=== PATIENT | female | born 1925 | race Caucasian/White ===

== ENCOUNTER → 2016-11-18 | Outpatient (CLI) | payer MEDICARE, OTHER ==
[~2016-11-18] MED LIST: ACET-819 PO; AMLO10TA PO; ASP325T PO; BENA1TAB12 PO; EZET1TAB44 PO; GLYB5TAB6 PO; HYDR-3812 PO; LOSA100T7 PO; LVT.1T PO; METO-272 PO; NITR-65 PO; OMEG1CAP51 PO; VITA1TAB22 PO; VITORIN
--- OUTSIDE RECORDS SUMMARY | 2016-11-18 10:03 | XMS REPORT | Continuity of Care Document ---
Author Author [facility] Organization [facility] Address Unknown Phone Unavailable Allergies Active Description Code Type Severity Reaction Onset Reported/Identified Relationship to Patient Clinical Status Yes azithromycin [id number] Drug Allergy Unknown RASH 12/25/2013 Medications Problems Date Dx Coded Attending Type Code Diagnosis Diagnosed By 05/04/2012 Ot 562.10 DIVERTICULOSIS COLON (W/O MENT OF HEMORR 05/04/2012 Ot V12.72 PERSONAL HISTORY OF COLONIC POLYPS 05/04/2012 Ot V16.0 FAMILY HX-GI MALIGNANCY 05/04/2012 Ot V76.51 SCREEN MAL NEOP-COLON 12/27/2013 KATIE BUI, JUANIS Dawson Ot 174.9 MALIGN NEOPL BREAST NOS 12/27/2013 KATIE BUI, JUANIS Dawson Ot 250.00 DIAB ALETHEA WO COMPL, TYPE II OR UNSPEC TY 12/27/2013 JUANIS WILSON MD Ot 272.4 HYPERLIPIDEMIA NEC/NOS 12/27/2013 JUANIS WILSON MD Ot 401.9 HYPERTENSION NOS 12/27/2013 KATIE BUI, JUANIS Dawson Ot 414.00 CORON ATHEROSCLER NOS TYPE VESSEL, NATIV 12/27/2013 JUANIS WILSON MD Ot V16.0 FAMILY HX-GI MALIGNANCY 12/27/2013 JUANIS WILSON MD Ot V16.3 FAMILY HX-BREAST MALIG 03/18/2014 VIANNEY AGUSTIN MD Ot 174.9 MALIGN NEOPL BREAST NOS 03/18/2014 VIANNEY AGUSTIN MD Ot 244.9 HYPOTHYROIDISM NOS 03/18/2014 VIANNEY AGUSTIN MD Ot 250.00 DIAB ALETHEA WO COMPL, TYPE II OR UNSPEC TY 03/18/2014 VIANNEY AGUSTIN MD Ot 272.4 HYPERLIPIDEMIA NEC/NOS 03/18/2014 VIANNEY AGUSTIN MD Ot 401.9 HYPERTENSION NOS 03/18/2014 VIANNEY AGUSTIN MD Ot 414.01 CORONARY ATHEROSCLEROSIS OF [place] CORON 09/17/2014 VIANNEY AGUSTIN MD Ot 174.9 MALIGN NEOPL BREAST NOS 09/17/2014 VAMSI MD, VIANNEY K Ot 244.9 HYPOTHYROIDISM NOS 09/17/2014 VAMSI BUI, VIANNEY K Ot 250.00 DIAB ALETHEA WO COMPL, TYPE II OR UNSPEC TY 09/17/2014 VAMSI BUI, VIANNEY Hayward Ot 272.4 HYPERLIPIDEMIA NEC/NOS 09/17/2014 VAMSI BUI, VIANNEY Hayward Ot 401.9 HYPERTENSION NOS 09/17/2014 VAMSI BUI, VIANNEY Hayward Ot 414.01 CORONARY ATHEROSCLEROSIS OF [place] CORON 10/10/2014 VAMSI BUI, VIANNEY Hayward Ot 174.9 10/10/2014 VAMSI BUI, VIANNEY Yesy Ot 244.9 10/10/2014 VAMSI BUI, VIANNEY K Ot 250.00 10/10/2014 VAMSI BUI, VIANNEY K Ot 272.4 10/10/2014 VAMSI BUI, VIANNEY K Ot 401.9 10/10/2014 VAMSI BUI, VIANNEY Hayward Ot 414.01 10/10/2014 VAMSI BUI, VIANNEY Hayward Ot 174.9 10/10/2014 VAMSI BUI, VIANNEY Hayward Ot 244.9 10/10/2014 VAMSI BUI, VIANNEY Yesy Ot 250.00 10/10/2014 VAMSI BUI, VIANNEY Hayward Ot 272.4 10/10/2014 VAMSI BUI, VIANNEY K Ot 401.9 10/10/2014 VAMSI BUI, VIANNEY K Ot 414.01 10/16/2014 VAMSI BUI, VIANNEY Hayward Ot 174.9 10/16/2014 VAMSI BUI, VIANNEY Hayward Ot 244.9 10/16/2014 VAMSI BUI, VIANNEY K Ot 250.00 10/16/2014 VAMSI BUI, VIANNEY Yesy Ot 272.4 10/16/2014 VAMSI BUI, VIANNEY K Ot 401.9 10/16/2014 VAMSI BUI, VIANNEY Yesy Ot 414.01 10/17/2014 VAMSI BUI, VIANNEY Hayward Ot 174.9 10/17/2014 VAMSI BUI, VIANNEY K Ot 244.9 10/17/2014 VAMSI BUI, VIANNEY K Ot 250.00 10/17/2014 VAMSI BUI, VIANNEY K Ot 272.4 10/17/2014 VAMSI BUI, VIANNEY K Ot 401.9 10/17/2014 VAMSI BUI, VIANNEY Hayward Ot 414.01 11/28/2014 VAMSI BUI, VIANNEY Hayward Ot 174.9 11/28/2014 VAMSI BUI, VIANNEY Hayward Ot 244.9 11/28/2014 VAMSI BUI, VIANNEY Yesy Ot 250.00 11/28/2014 VAMSI BUI, VIANNEY Hayward Ot 272.4 11/28/2014 VAMSI BUI, VIANNEY Yesy Ot 401.9 11/28/2014 VAMSI BUI, VIANNEY K Ot 414.01 11/28/2014 VAMSI BUI, VIANNEY Hayward Ot 174.9 11/28/2014 VAMSI BUI, VIANNEY Hayward Ot 244.9 11/28/2014 VAMSI BUI, VIANNEY Hayward Ot 250.00 11/28/2014 VAMSI BUI, VIANNEY Hayward Ot 272.4 11/28/2014 VAMSI BUI, VIANNEY Hayward Ot 401.9 11/28/2014 VAMSI BUI, VIANNEY Hayward Ot 414.01 12/27/2014 Ot 174.9 12/27/2014 Ot 729.81 01/02/2015 Ot 723.0 01/03/2015 Ot 174.9 01/03/2015 Ot 729.81 01/10/2015 Ot 723.0 01/14/2015 VAMSI BUI, VIANNEY Hayward Ot 174.9 MALIGN NEOPL BREAST NOS 01/14/2015 VAMSI BUI, VIANNEY Hayward Ot 244.9 HYPOTHYROIDISM NOS 01/14/2015 VAMSI BUI, VIANNEY Hayward Ot 250.00 DIAB ALETHEA WO COMPL, TYPE II OR UNSPEC TY 01/14/2015 VAMSI BUI, VIANNEY Hayward Ot 272.4 HYPERLIPIDEMIA NEC/NOS 01/14/2015 VAMSI BUI, VIANNEY Hayward Ot 401.9 HYPERTENSION NOS 01/14/2015 VAMSI BUI, VIANNEY Hayward Ot 414.01 CORONARY ATHEROSCLEROSIS OF [place] CORON 01/15/2015 VAMSI BUI, VIANNEY Hayward Ot 174.9 01/15/2015 VAMSI BUI, VIANNEY Hayward Ot 244.9 01/15/2015 VAMSI BUI, VIANNEY Hayward Ot 250.00 01/15/2015 VAMSI BUI, VIANNEY Hayward Ot 272.4 01/15/2015 VAMSI BUI, VIANNEY Hayward Ot 401.9 01/15/2015 VAMSI BUI, VIANNEY Hayward Ot 414.01 01/15/2015 VAMSI BUI, VIANNEY Hayward Ot 174.9 01/15/2015 VAMSI BUI, VIANNEY Hayward Ot 244.9 01/15/2015 VAMSI BUI, VIANNEY Hayward Ot 250.00 01/15/2015 VAMSI BUI, VIANNEY Hayward Ot 272.4 01/15/2015 VAMSI BUI, VIANNEY Hayward Ot 401.9 01/15/2015 VAMSI BUI, VIANNEY Hayward Ot 414.01 01/16/2015 VAMSI BUI, VIANNEY Hayward Ot 174.9 01/16/2015 VAMSI BUI, VIANNEY Hayward Ot 244.9 01/16/2015 VAMSI BUI, VIANNEY Hayward Ot 250.00 01/16/2015 VAMSI BUI, VIANNEY Hayward Ot 272.4 01/16/2015 VAMSI BUI, VIANNEY Hayward Ot 401.9 01/16/2015 VAMSI BUI, VIANNEY Hayward Ot 414.01 01/17/2015 VAMSI BUI, VIANNEY Hayward Ot 174.9 01/17/2015 VAMSI BUI, VIANNEY Hayward Ot 244.9 01/17/2015 VAMSI BUI, VIANNEY Hayward Ot 250.00 01/17/2015 VAMSI BUI, VIANNEY Hayward Ot 272.4 01/17/2015 VAMSI BUI, VIANNEY Hayward Ot 401.9 01/17/2015 VAMSI BUI, VIANNEY Hayward Ot 414.01 02/21/2015 VAMSI BUI, VIANNEY Hayward Ot 174.9 03/17/2015 VAMSI BUI, VIANNEY Hayward Ot 174.9 03/17/2015 VAMSI BUI, VIANNEY Hayward Ot 244.9 03/17/2015 VAMSI BUI, VIANNEY Hayward Ot 250.00 03/17/2015 VAMSI BUI, VIANNEY Hayward Ot 272.4 03/17/2015 VAMSI BUI, VIANNEY Hayward Ot 401.9 03/17/2015 VAMSI BUI, VIANNEY Hayward Ot 414.01 03/19/2015 VAMSI BUI, VIANNEY Hayward Ot 174.9 03/19/2015 VAMSI BUI, VIANNEY Hayward Ot 244.9 03/19/2015 VAMSI BUI, VIANNEY Hayward Ot 250.00 03/19/2015 VAMSI BUI, VIANNEY Hayward Ot 272.4 03/19/2015 VAMSI BUI, VIANNEY Hayward Ot 401.9 03/19/2015 VAMSI BUI, VIANNEY Hayward Ot 414.01 03/19/2015 VAMSI BUI, VIANNEY Hayward Ot 174.9 04/16/2015 VAMSI BUI, VIANNEY Hayward Ot 174.9 MALIGN NEOPL BREAST NOS 04/16/2015 VAMSI BUI, VIANNEY Hayward Ot 244.9 HYPOTHYROIDISM NOS 04/16/2015 VAMSI BUI, VIANNEY Hayward Ot 250.00 DIAB ALETHEA WO COMPL, TYPE II OR UNSPEC TY 04/16/2015 VASMI BUI, VIANNEY Hayward Ot 272.4 HYPERLIPIDEMIA NEC/NOS 04/16/2015 VAMSI BUI, VIANNEY Hayward Ot 401.9 HYPERTENSION NOS 04/16/2015 VAMSI BUI, VIANNEY Hayward Ot 414.01 CORONARY ATHEROSCLEROSIS OF [place] CORON 05/08/2015 VAMSI BUI, VIANNEY Hayward Ot 174.9 05/08/2015 VAMSI BUI, VIANNEY Hayward Ot 244.9 05/08/2015 VAMSI BUI, VIANNEY Hayward Ot 250.00 05/08/2015 VAMSI BUI, VIANNEY Hayward Ot 272.4 05/08/2015 VAMSI BUI, VIANNEY Hayward Ot 401.9 05/08/2015 VAMSI BUI, VIANNEY Hayward Ot 414.01 05/16/2015 VAMSI BUI, VIANNEY Hayward Ot 174.9 05/16/2015 VAMSI BUI, VIANNEY Hayward Ot 244.9 05/16/2015 VAMSI BUI, VIANNEY Hayward Ot 250.00 05/16/2015 VAMSI BUI, VIANNEY Hayward Ot 272.4 05/16/2015 VAMSI BUI, VIANNEY Hayward Ot 401.9 05/16/2015 VAMSI BUI, VIANNEY Hayward Ot 414.01 05/21/2015 VAMSI BUI, VIANNEY Hayward Ot 174.9 05/21/2015 VAMSI BUI, VIANNEY Hayward Ot 244.9 05/21/2015 VAMSI BUI, VIANNEY Hayward Ot 250.00 05/21/2015 VAMSI BUI, VIANNEY Hayward Ot 272.4 05/21/2015 VAMSI BUI, VIANNEY Hayward Ot 401.9 05/21/2015 VAMSI BUI, VIANNEY Hayward Ot 414.01 06/24/2015 VAMSI BUI, VIANNEY Hayward Ot 174.9 06/24/2015 VAMSI BUI, VIANNEY Hayward Ot 244.9 06/24/2015 VAMSI BUI, VIANNEY Hayward Ot 250.00 06/24/2015 VAMSI BUI, VIANNEY Hayward Ot 272.4 06/24/2015 VAMSI BUI, VIANNEY Hayward Ot 401.9 06/24/2015 VAMSI BUI, VIANNEY Hayward Ot 414.01 07/02/2015 VAMSI BUI, VIANNEY Hayward Ot 174.9 MALIGN NEOPL BREAST NOS 07/02/2015 VAMSI BUI, VIANNEY Hayward Ot 244.9 HYPOTHYROIDISM NOS 07/02/2015 VAMSI BUI, VIANNEY Hayward Ot 250.00 DIAB ALETHEA WO COMPL, TYPE II OR UNSPEC TY 07/02/2015 VAMSI BUI, VIANNEY Hayward Ot 272.4 HYPERLIPIDEMIA NEC/NOS 07/02/2015 VAMSI BUI, VIANNEY Hayward Ot 401.9 HYPERTENSION NOS 07/02/2015 VAMSI BUI, VIANNEY Hayward Ot 414.01 CORONARY ATHEROSCLEROSIS OF [place] CORON 07/02/2015 VAMSI BUI, VIANNEY Hayward Ot 174.9 07/02/2015 VAMSI BUI, VIANNEY Hayward Ot 244.9 07/02/2015 VAMSI BUI, VIANNEY Hayward Ot 250.00 07/02/2015 VAMSI BUI, VIANNEY Hayward Ot 272.4 07/02/2015 VAMSI BUI, VIANNEY Hayward Ot 401.9 07/02/2015 VAMSI BUI, VIANNEY Hayward Ot 414.01 08/07/2015 Ot C50.911 08/07/2015 Ot Z12.31 09/30/2015 VAMSI BUI, VIANNEY Hayward Ot C50.911 09/30/2015 VASMI BUI, VIANNEY Hayward Ot E03.9 09/30/2015 VAMSI BUI, VIANNEY Hayward Ot E11.9 09/30/2015 VIANNEY AGUSTIN MD K Ot E78.5 09/30/2015 VAMSI BUI, VIANNEY Hayward Ot I10 09/30/2015 VAMSI BUI, VIANNEY Hayward Ot I25.10 09/30/2015 VAMSI BUI, VIANNEY Hayward Ot Z17.0 09/30/2015 VAMSI BUI, VIANNEY Hayward Ot Z79.899 10/06/2015 VAMSI BUI, VIANNEY Hayward Ot C50.911 10/06/2015 VAMSI BUI, VIANNEY Hayward Ot E03.9 10/06/2015 VAMSI BUI, VIANNEY Hayward Ot E11.9 10/06/2015 VAMSI BUI, VIANNEY Hayward Ot E78.5 10/06/2015 VAMSI BUI, VIANNEY Hayward Ot I10 10/06/2015 VAMSI BUI, VIANNEY Hayward Ot I25.10 10/06/2015 VAMSI BUI, VIANNEY Hayward Ot Z17.0 10/06/2015 VAMSI BUI, VIANNEY Hayward Ot Z79.899 11/06/2015 VAMSI BUI, VIANNEY Hayward Ot C50.911 11/06/2015 VAMSI BUI, VIANNEY Hayward Ot E03.9 11/06/2015 VAMSI BUI, VIANNEY Hayward Ot E11.9 11/06/2015 VAMSI BUI, VIANNEY Hayward Ot E78.5 11/06/2015 VAMSI BUI, VIANNEY Hayward Ot I10 11/06/2015 VAMSI BUI, VIANNEY Hayward Ot I25.10 11/06/2015 VAMSI BUI, VIANNEY Hayward Ot Z17.0 11/06/2015 VAMSI BUI, VIANNEY Hayward Ot Z79.899 11/12/2015 VAMSI BUI, VIANNEY Hayward Ot 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 11/12/2015 VAMSI BUI, VIANNEY Hayward Ot E03.9 HYPOTHYROIDISM, UNSPECIFIED 11/12/2015 VAMSI BUI, VIANNEY Hayward Ot E11.9 TYPE 2 DIABETES MELLITUS WITHOUT COMPLIC 11/12/2015 VAMSI BUI, VIANNEY Hayward Ot E78.5 HYPERLIPIDEMIA, UNSPECIFIED 11/12/2015 VAMSI BUI, VIANNEY Hayward Ot I10 ESSENTIAL (PRIMARY) HYPERTENSION 11/12/2015 VAMSI BUI, VIANNEY Hayward Ot I25.10 ATHSCL HEART DISEASE OF [place] CORONARY 11/12/2015 VAMSI BUI, VIANNEY Hayward Ot 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+] 11/12/2015 VAMSI BUI, VIANNEY Hayward Ot Z79.899 OTHER SKIN WASHER (CURRENT) DRUG THERAPY 01/29/2016 VAMSI BUI, VIANNEY Hayward Ot 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 01/29/2016 VIANNEY AGUSTIN MD Ot E03.9 HYPOTHYROIDISM, UNSPECIFIED 01/29/2016 VIANNEY AGUSTIN MD Ot E11.9 TYPE 2 DIABETES MELLITUS WITHOUT COMPLIC 01/29/2016 VIANNEY AGUSTIN MD Ot E78.5 HYPERLIPIDEMIA, UNSPECIFIED 01/29/2016 VIANNEY AGUSTIN MD Ot I10 ESSENTIAL (PRIMARY) HYPERTENSION 01/29/2016 VIANNEY AGUSTIN MD Ot I25.10 ATHSCL HEART DISEASE OF [place] CORONARY 01/29/2016 VIANNEY AGUSTIN MD Ot 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+] 01/29/2016 VIANNEY AGUSTIN MD Ot Z79.899 OTHER [facility] (CURRENT) DRUG THERAPY 02/06/2016 VIANNEY AGUSTIN MD, Ot 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 02/06/2016 VIANNEY AGUSTIN MD, Ot E03.9 HYPOTHYROIDISM, UNSPECIFIED 02/06/2016 VIANNEY AGUSTIN MD Ot E11.9 TYPE 2 DIABETES MELLITUS WITHOUT COMPLIC 02/06/2016 VIANNEY AGUSTIN MD Ot E78.5 HYPERLIPIDEMIA, UNSPECIFIED 02/06/2016 VIANNEY AGUSTIN MD Ot I10 ESSENTIAL (PRIMARY) HYPERTENSION 02/06/2016 VIANNEY AGUSTIN MD Ot I25.10 ATHSCL HEART DISEASE OF [place] CORONARY 02/06/2016 VIANNEY AGUSTIN MD, Ot 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+] 02/06/2016 VIANNEY AGUSTIN MD, Ot Z79.899 OTHER SKIN WASHER (CURRENT) DRUG THERAPY 03/25/2016 VIANNEY AGUSTIN MD, Ot 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 03/25/2016 VIANNEY AGUSTIN MD Ot E03.9 HYPOTHYROIDISM, UNSPECIFIED 03/25/2016 VIANNEY AGUSTIN MD Ot E11.9 TYPE 2 DIABETES MELLITUS WITHOUT COMPLIC 03/25/2016 VIANNEY AGUSTIN MD Ot E78.5 HYPERLIPIDEMIA, UNSPECIFIED 03/25/2016 VIANNEY AGUSTIN MD Ot I10 ESSENTIAL (PRIMARY) HYPERTENSION 03/25/2016 VIANNEY AGUSTIN MD Ot I25.10 ATHSCL HEART DISEASE OF [place] CORONARY 03/25/2016 VIANNEY AGUSTIN MD Ot 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+] 03/25/2016 VIANNEY AGUSTIN MD Ot Z79.899 OTHER SKIN WASHER (CURRENT) DRUG THERAPY 04/08/2016 VIANNEY AGUSTIN MD, Ot 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 04/08/2016 VIANNEY AGUSTIN MD Ot E03.9 HYPOTHYROIDISM, UNSPECIFIED 04/08/2016 VIANNEY AGUSTIN MD Ot E11.9 TYPE 2 DIABETES MELLITUS WITHOUT COMPLIC 04/08/2016 VIANNEY AGUSTIN MD Ot E78.5 HYPERLIPIDEMIA, UNSPECIFIED 04/08/2016 VIANNEY AGUSTIN MD Ot I10 ESSENTIAL (PRIMARY) HYPERTENSION 04/08/2016 VIANNEY AGUSTIN MD Ot I25.10 ATHSCL HEART DISEASE OF [place] CORONARY 04/08/2016 VIANNEY AGUSTIN MD Ot 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+] 04/08/2016 VIANNEY AGUSTIN MD Ot Z79.899 OTHER [facility] (CURRENT) DRUG THERAPY 05/05/2016 VIANNEY AGUSTIN MD, Ot 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 05/05/2016 VIANNEY AGUSTIN MD, Ot E03.9 HYPOTHYROIDISM, UNSPECIFIED 05/05/2016 VIANNEY AGUSTIN MD Ot E11.9 TYPE 2 DIABETES MELLITUS WITHOUT COMPLIC 05/05/2016 VIANNEY AGUSTIN MD Ot E78.5 HYPERLIPIDEMIA, UNSPECIFIED 05/05/2016 VIANNEY AGUSTIN MD Ot I10 ESSENTIAL (PRIMARY) HYPERTENSION 05/05/2016 VIANNEY AGUSTIN MD Ot I25.10 ATHSCL HEART DISEASE OF [place] CORONARY 05/05/2016 VIANNEY AGUSTIN MD, Ot 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+] 05/05/2016 VIANNEY AGUSTIN MD Ot Z79.899 OTHER SKIN WASHER (CURRENT) DRUG THERAPY 05/07/2016 VIANNEY AGUSTIN MD, Ot 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 05/07/2016 VIANNEY AGUSTIN MD, Ot E03.9 HYPOTHYROIDISM, UNSPECIFIED 05/07/2016 VIANNEY AGUSTIN MD Ot E11.9 TYPE 2 DIABETES MELLITUS WITHOUT COMPLIC 05/07/2016 VIANNEY AGUSTIN MD Ot E78.5 HYPERLIPIDEMIA, UNSPECIFIED 05/07/2016 VIANNEY AGUSTIN MD Ot I10 ESSENTIAL (PRIMARY) HYPERTENSION 05/07/2016 VIANNEY AGUSTIN MD Ot I25.10 ATHSCL HEART DISEASE OF [place] CORONARY 05/07/2016 VIANNEY AGUSTIN MD Ot 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+] 05/07/2016 VIANNEY AGUSTIN MD Ot Z79.899 OTHER [facility] (CURRENT) DRUG THERAPY 06/24/2016 VIANNEY AGUSTIN MD, Ot 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 06/24/2016 VIANNEY AGUSTIN MD, Ot E03.9 HYPOTHYROIDISM, UNSPECIFIED 06/24/2016 VIANNEY AGUSTIN MD, Ot E11.9 TYPE 2 DIABETES MELLITUS WITHOUT COMPLIC 06/24/2016 VIANNEY AGUSTIN MD, Ot E78.5 HYPERLIPIDEMIA, UNSPECIFIED 06/24/2016 VIANNEY AGUSTIN MD, Ot I10 ESSENTIAL (PRIMARY) HYPERTENSION 06/24/2016 VIANNEY AGUSTIN MD, Ot I25.10 ATHSCL HEART DISEASE OF [place] CORONARY 06/24/2016 VIANNEY AGUSTIN MD, Ot 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+] 06/24/2016 VIANNEY AGUSTIN MD, Ot Z79.899 OTHER SKIN WASHER (CURRENT) DRUG THERAPY 06/26/2016 LARRY WELLS DO Ot E03.9 HYPOTHYROIDISM, UNSPECIFIED 06/26/2016 LARRY WELLS DO Ot E11.9 TYPE 2 DIABETES MELLITUS WITHOUT COMPLIC 06/26/2016 LARRY WELLS DO Ot I10 ESSENTIAL (PRIMARY) HYPERTENSION 06/26/2016 LARRY WELLS DO Ot 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 06/26/2016 LARRY WELLS DO Ot K43.9 VENTRAL HERNIA WITHOUT OBSTRUCTION OR GA 06/26/2016 LARRY WELLS DO Ot K57.30 DVRTCLOS OF LG INT W/O PERFORATION OR AB 06/26/2016 LARRY WELLS DO Ot M47.9 SPONDYLOSIS, UNSPECIFIED 06/26/2016 LARRY WELLS DO Ot M54.5 LOW BACK PAIN 06/26/2016 LARRY WELLS DO Ot N39.0 URINARY TRACT INFECTION, SITE NOT SPECIF 06/26/2016 LARRY WELLS DO Ot Z79.82 SKIN WASHER (CURRENT) USE OF ASPIRIN 06/26/2016 LARRY WELLS DO Ot Z79.899 OTHER SKIN WASHER (CURRENT) DRUG THERAPY 06/26/2016 LARRY WELLS DO Ot Z95.1 PRESENCE OF AORTOCORONARY BYPASS GRAFT 06/30/2016 VIANNEY AGUSTIN MD, Ot 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 06/30/2016 VIANNEY AGUSTIN MD, Ot E03.9 HYPOTHYROIDISM, UNSPECIFIED 06/30/2016 VIANNEY AGUSTIN MD Ot E11.9 TYPE 2 DIABETES MELLITUS WITHOUT COMPLIC 06/30/2016 VIANNEY AGUSTIN MD Ot E78.5 HYPERLIPIDEMIA, UNSPECIFIED 06/30/2016 VIANNEY AGUSTIN MD Ot I10 ESSENTIAL (PRIMARY) HYPERTENSION 06/30/2016 VIANNEY AGUSTIN MD Ot I25.10 ATHSCL HEART DISEASE OF [place] CORONARY 06/30/2016 VIANNEY AGUSTIN MD Ot 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+] 06/30/2016 VIANNEY AGUSTIN MD Ot Z79.899 OTHER [facility] (CURRENT) DRUG THERAPY 07/02/2016 Ot V76.12 OTH SCREEN MAMMO-MALIGN NEOPLASM OF [place] 07/02/2016 Ot V72.84 EXAM PRE-OPERATIVE NOS 07/02/2016 Ot 793.89 OTH (ABN) FINDINGS ON RADIOLOGICAL EXAMI 07/02/2016 Ot V76.12 OTH SCREEN MAMMO-MALIGN NEOPLASM OF [place] 07/02/2016 Ot 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 07/02/2016 MAYDA OLVERA PICTURE PAINTER Ot 793.89 OTH (ABN) FINDINGS ON RADIOLOGICAL EXAMI 07/02/2016 MAYDA OLVERA PICTURE PAINTER Ot V67.9 FOLLOW-UP EXAM NOS 07/02/2016 CRISSY CARR MD Ot 793.89 OTH (ABN) FINDINGS ON RADIOLOGICAL EXAMI 07/02/2016 JUANIS WILSON MD Ot 174.9 MALIGN NEOPL BREAST NOS 07/02/2016 JUANIS WILSON MD Ot V72.83 EXAM PRE-OPERATIVE NEC 07/02/2016 JUANIS WILSON MD Ot V72.84 EXAM PRE-OPERATIVE NOS 07/02/2016 JUANIS WILSON MD Ot V74.8 SCREEN-BACTERIAL DIS NEC 07/02/2016 JUANIS WILSON MD Ot 793.89 OTH (ABN) FINDINGS ON RADIOLOGICAL EXAMI 07/02/2016 JUANIS WILSON MD Ot V10.3 HX OF BREAST MALIGNANCY 07/02/2016 Ot 174.9 MALIGN NEOPL BREAST NOS 07/02/2016 Ot 729.81 SWELLING OF LIMB 07/02/2016 Ot 723.0 CERVICAL SPINAL STENOSIS 07/02/2016 VIANNEY AGUSTIN MD Ot 174.9 MALIGN NEOPL BREAST NOS 07/02/2016 Ot 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 07/02/2016 Ot Z12.31 ENCNTR SCREEN MAMMOGRAM FOR MALIGNANT NE 07/02/2016 VAMSI BUI, VIANNEY Hayward Ot 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 07/02/2016 VAMSI BUI, VIANNEY Hayward Ot E03.9 HYPOTHYROIDISM, UNSPECIFIED 07/02/2016 VIANNEY AGUSTIN MD Ot E11.9 TYPE 2 DIABETES MELLITUS WITHOUT COMPLIC 07/02/2016 VIANNEY AGUSTIN MD Ot E78.5 HYPERLIPIDEMIA, UNSPECIFIED 07/02/2016 VIANNEY AGUSTIN MD Ot I10 ESSENTIAL (PRIMARY) HYPERTENSION 07/02/2016 VIANNEY AGUSTIN MD Ot I25.10 ATHSCL HEART DISEASE OF [place] CORONARY 07/02/2016 VIANNEY AGUSTIN MD Ot 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+] 07/02/2016 VIANNEY AGUSTIN MD, Ot Z79.899 OTHER SKIN WASHER (CURRENT) DRUG THERAPY 07/03/2016 LARRY WELLS DO Ot E03.9 HYPOTHYROIDISM, UNSPECIFIED 07/03/2016 LARRY WELLS DO Ot E11.9 TYPE 2 DIABETES MELLITUS WITHOUT COMPLIC 07/03/2016 LARRY WELLS DO Ot I10 ESSENTIAL (PRIMARY) HYPERTENSION 07/03/2016 LARRY WELLS DO Ot 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 07/03/2016 LARRY WELLS DO Ot K43.9 VENTRAL HERNIA WITHOUT OBSTRUCTION OR GA 07/03/2016 LARRY WELLS DO K Ot K57.30 DVRTCLOS OF LG INT W/O PERFORATION OR AB 07/03/2016 LARRY WELLS DO Ot M47.9 SPONDYLOSIS, UNSPECIFIED 07/03/2016 LARRY WELLS DO Ot M54.5 LOW BACK PAIN 07/03/2016 LARRY WELLS DO Ot N39.0 URINARY TRACT INFECTION, SITE NOT SPECIF 07/03/2016 LARRY WELLS DO Ot Z79.82 [facility] (CURRENT) USE OF ASPIRIN 07/03/2016 LARRY WELLS DO Ot Z79.899 OTHER SKIN WASHER (CURRENT) DRUG THERAPY 07/03/2016 LARRY WELLS DO Ot Z95.1 PRESENCE OF AORTOCORONARY BYPASS GRAFT 07/04/2016 LARRY WELLS DO Ot E03.9 HYPOTHYROIDISM, UNSPECIFIED 07/04/2016 LARRY WELLS DO Ot E11.9 TYPE 2 DIABETES MELLITUS WITHOUT COMPLIC 07/04/2016 LARRY WELLS DO Ot I10 ESSENTIAL (PRIMARY) HYPERTENSION 07/04/2016 LARRY WELLS DO Ot 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 07/04/2016 LARRY WELLS DO Ot K43.9 VENTRAL HERNIA WITHOUT OBSTRUCTION OR GA 07/04/2016 LARRY WELLS DO Ot K57.30 DVRTCLOS OF LG INT W/O PERFORATION OR AB 07/04/2016 LARRY WELLS DO Ot M47.9 SPONDYLOSIS, UNSPECIFIED 07/04/2016 LARRY WELLS DO Ot M54.5 LOW BACK PAIN 07/04/2016 LARRY WELLS DO Ot N39.0 URINARY TRACT INFECTION, SITE NOT SPECIF 07/04/2016 LARRY WELLS DO Ot Z79.82 [facility] (CURRENT) USE OF ASPIRIN 07/04/2016 LARRY WELLS DO Ot Z79.899 OTHER [facility] (CURRENT) DRUG THERAPY 07/04/2016 LARRY WELLS DO Ot Z95.1 PRESENCE OF AORTOCORONARY BYPASS GRAFT 07/07/2016 MAYDA OLVERA PICTURE PAINTER Ot M43.16 SPONDYLOLISTHESIS, LUMBAR REGION 07/07/2016 MAYDA OLVERA PICTURE PAINTER Ot M47.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, LUMBAR REGION 07/07/2016 MAYDA OLVERA PICTURE PAINTER Ot R10.12 LEFT UPPER QUADRANT PAIN 07/07/2016 MAYDA OLVERA PICTURE PAINTER Ot R10.32 LEFT LOWER QUADRANT PAIN 07/12/2016 MIKAEL RANDALL DO Ot M54.5 LOW BACK PAIN 07/12/2016 MIKAEL RANDALL DO Ot M54.6 PAIN IN THORACIC SPINE 07/12/2016 MIKAEL RANDALL DO Ot M54.5 LOW BACK PAIN 07/12/2016 MIKAEL RANDALL DO Ot M54.6 PAIN IN THORACIC SPINE 07/12/2016 MIKAEL RANDALL DO Ot M54.5 LOW BACK PAIN 07/12/2016 MIKAEL RANDALL DO Ot M54.6 PAIN IN THORACIC SPINE 07/14/2016 MIKAEL RANDLAL DO Ot M54.5 LOW BACK PAIN 07/14/2016 MIKAEL RANDALL DO Ot M54.6 PAIN IN THORACIC SPINE 07/26/2016 WADEMAYDA R PICTURE PAINTER Ot M43.16 SPONDYLOLISTHESIS, LUMBAR REGION 07/26/2016 WADE, MAYDA R PICTURE PAINTER Ot M47.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, LUMBAR REGION 07/26/2016 WADE, MAYDA R PICTURE PAINTER Ot R10.12 LEFT UPPER QUADRANT PAIN 07/26/2016 WADEMAYDA R PICTURE PAINTER Ot R10.32 LEFT LOWER QUADRANT PAIN 07/30/2016 MIKAEL RANDALL DO Ot M54.5 LOW BACK PAIN 07/30/2016 MIKAEL RANDALL DO Ot M54.6 PAIN IN THORACIC SPINE 08/04/2016 VIANNEY AGUSTIN MD Ot 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 08/04/2016 VIANNEY AGUSTIN MD Ot E03.9 HYPOTHYROIDISM, UNSPECIFIED 08/04/2016 VIANNEY AGUSTIN MD Ot E11.9 TYPE 2 DIABETES MELLITUS WITHOUT COMPLIC 08/04/2016 VIANNEY AGUSTIN MD Ot E78.5 HYPERLIPIDEMIA, UNSPECIFIED 08/04/2016 VIANNEY AGUSTIN MD Ot I10 ESSENTIAL (PRIMARY) HYPERTENSION 08/04/2016 VIANNEY AGUSTIN MD Ot I25.10 ATHSCL HEART DISEASE OF [place] CORONARY 08/04/2016 VIANNEY AGUSTIN MD Ot 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+] 08/04/2016 VIANNEY AGUSTIN MD Ot Z79.899 OTHER [facility] (CURRENT) DRUG THERAPY 08/04/2016 MIKAEL RANDALL DO Ot M54.5 LOW BACK PAIN 08/04/2016 MIKAEL RANDALL DO Ot M54.6 PAIN IN THORACIC SPINE 08/05/2016 VIANNEY AGUSTIN MD Ot 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 08/05/2016 VIANNEY AGUSTIN MD Ot E03.9 HYPOTHYROIDISM, UNSPECIFIED 08/05/2016 VIANNEY AGUSTIN MD Ot E11.9 TYPE 2 DIABETES MELLITUS WITHOUT COMPLIC 08/05/2016 VIANNEY AGUSTIN MD Ot E78.5 HYPERLIPIDEMIA, UNSPECIFIED 08/05/2016 VIANNEY AGUSTIN MD Ot I10 ESSENTIAL (PRIMARY) HYPERTENSION 08/05/2016 VIANNEY AGUSTIN MD Ot I25.10 ATHSCL HEART DISEASE OF [place] CORONARY 08/05/2016 VIANNEY AGUSTIN MD Ot 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+] 08/05/2016 VAMSI MD, VIANNEY K Ot Z79.899 OTHER [facility] (CURRENT) DRUG THERAPY 10/01/2016 Ot V76.12 OTH SCREEN MAMMO-MALIGN NEOPLASM OF [place] 10/01/2016 Ot V72.84 EXAM PRE-OPERATIVE NOS 10/01/2016 Ot 793.89 OTH (ABN) FINDINGS ON RADIOLOGICAL EXAMI 10/01/2016 Ot V76.12 OTH SCREEN MAMMO-MALIGN NEOPLASM OF [place] 10/01/2016 Ot 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 10/01/2016 MAYDA OLVERA PICTURE PAINTER Ot 793.89 OTH (ABN) FINDINGS ON RADIOLOGICAL EXAMI 10/01/2016 MAYDA OLVERA APRN Ot V67.9 FOLLOW-UP EXAM NOS 10/01/2016 BRUNO BUI, CRISSY Finley Ot 793.89 OTH (ABN) FINDINGS ON RADIOLOGICAL EXAMI 10/01/2016 JUANIS WILSON MD Ot 174.9 MALIGN NEOPL BREAST NOS 10/01/2016 JUANIS WILSON MD Ot V72.83 EXAM PRE-OPERATIVE NEC 10/01/2016 JUANIS WILSON MD Ot V72.84 EXAM PRE-OPERATIVE NOS 10/01/2016 JUANIS WILSON MD Ot V74.8 SCREEN-BACTERIAL DIS NEC 10/01/2016 JUANIS WILSON MD Ot 793.89 OTH (ABN) FINDINGS ON RADIOLOGICAL EXAMI 10/01/2016 JUANIS WILSON MD Ot V10.3 HX OF BREAST MALIGNANCY 10/01/2016 Ot 174.9 MALIGN NEOPL BREAST NOS 10/01/2016 Ot 729.81 SWELLING OF LIMB 10/01/2016 Ot 723.0 CERVICAL SPINAL STENOSIS 10/01/2016 VIANNEY AGUSTIN MD Ot 174.9 MALIGN NEOPL BREAST NOS 10/01/2016 Ot 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 10/01/2016 Ot Z12.31 ENCNTR SCREEN MAMMOGRAM FOR MALIGNANT NE 10/01/2016 MAYDA OLVERA PICTURE PAINTER Ot M43.16 SPONDYLOLISTHESIS, LUMBAR REGION 10/01/2016 MAYDA OLVERA PICTURE PAINTER Ot M47.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, LUMBAR REGION 10/01/2016 MAYDA OLVERA PICTURE PAINTER Ot R10.12 LEFT UPPER QUADRANT PAIN 10/01/2016 MAYDA OLVERA PICTURE PAINTER Ot R10.32 LEFT LOWER QUADRANT PAIN 10/01/2016 MIKAEL RANDALL DO Ot M54.5 LOW BACK PAIN 10/01/2016 MIKAEL RANDALL DO Ot M54.6 PAIN IN THORACIC SPINE 10/01/2016 VIANNEY AGUSTIN MD Ot 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 10/01/2016 VIANNEY AGUSTIN MD Ot E03.9 HYPOTHYROIDISM, UNSPECIFIED 10/01/2016 VIANNEY AGUSTIN MD Ot E11.9 TYPE 2 DIABETES MELLITUS WITHOUT COMPLIC 10/01/2016 VIANNEY AGUSTIN MD Ot E78.5 HYPERLIPIDEMIA, UNSPECIFIED 10/01/2016 VIANNEY AGUSTIN MD Ot I10 ESSENTIAL (PRIMARY) HYPERTENSION 10/01/2016 VIANNEY AGUSTIN MD Ot I25.10 ATHSCL HEART DISEASE OF [place] CORONARY 10/01/2016 VIANNEY AGUSTIN MD Ot 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+] 10/01/2016 VIANNEY AGUSTIN MD Ot Z79.899 OTHER [facility] (CURRENT) DRUG THERAPY 10/04/2016 CRISSY CARR MD Ot R07.81 PLEURODYNIA 10/04/2016 CRISSY CARR MD Ot R07.81 PLEURODYNIA 10/25/2016 CRISSY CARR MD Ot R07.81 PLEURODYNIA 11/03/2016 Ot V76.12 OTH SCREEN MAMMO-MALIGN NEOPLASM OF [place] 11/03/2016 Ot V72.84 EXAM PRE-OPERATIVE NOS 11/03/2016 Ot 793.89 OTH (ABN) FINDINGS ON RADIOLOGICAL EXAMI 11/03/2016 Ot V76.12 OTH SCREEN MAMMO-MALIGN NEOPLASM OF [place] 11/03/2016 Ot 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 11/03/2016 MAYDA OLVERA PICTURE PAINTER Ot 793.89 OTH (ABN) FINDINGS ON RADIOLOGICAL EXAMI 11/03/2016 MAYDA OLVERA PICTURE PAINTER Ot V67.9 FOLLOW-UP EXAM NOS 11/03/2016 CRISSY CARR MD Ot 793.89 OTH (ABN) FINDINGS ON RADIOLOGICAL EXAMI 11/03/2016 JUANIS WILSON MD Ot 174.9 MALIGN NEOPL BREAST NOS 11/03/2016 JUANIS WILSON MD Ot V72.83 EXAM PRE-OPERATIVE NEC 11/03/2016 JUANIS WILSON MD Ot V72.84 EXAM PRE-OPERATIVE NOS 11/03/2016 JUANIS WILSON MD Ot V74.8 SCREEN-BACTERIAL DIS NEC 11/03/2016 JUANIS WILSON MD Ot 793.89 OTH (ABN) FINDINGS ON RADIOLOGICAL EXAMI 11/03/2016 JUANIS WILSON MD Ot V10.3 HX OF BREAST MALIGNANCY 11/03/2016 Ot 174.9 MALIGN NEOPL BREAST NOS 11/03/2016 Ot 729.81 SWELLING OF LIMB 11/03/2016 Ot 723.0 CERVICAL SPINAL STENOSIS 11/03/2016 VIANNEY AGUSTIN MD Ot 174.9 MALIGN NEOPL BREAST NOS 11/03/2016 Ot 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 11/03/2016 Ot Z12.31 ENCNTR SCREEN MAMMOGRAM FOR MALIGNANT NE 11/03/2016 MAYDA OLVERA APRN Ot M43.16 SPONDYLOLISTHESIS, LUMBAR REGION 11/03/2016 MAYDA OLVERA PICTURE PAINTER Ot M47.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, LUMBAR REGION 11/03/2016 MAYDA OLVERA PICTURE PAINTER Ot R10.12 LEFT UPPER QUADRANT PAIN 11/03/2016 MAYDA OLVERA PICTURE PAINTER Ot R10.32 LEFT LOWER QUADRANT PAIN 11/03/2016 MIKAEL RANDALL DO Ot M54.5 LOW BACK PAIN 11/03/2016 MIKAEL RANDALL DO Ot M54.6 PAIN IN THORACIC SPINE 11/03/2016 VIANNEY AGUSTIN MD Ot 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 11/03/2016 VIANNEY AGUSTIN MD Ot E03.9 HYPOTHYROIDISM, UNSPECIFIED 11/03/2016 VIANNEY AGUSTIN MD Ot E11.9 TYPE 2 DIABETES MELLITUS WITHOUT COMPLIC 11/03/2016 VIANNEY AGUSTIN MD Ot E78.5 HYPERLIPIDEMIA, UNSPECIFIED 11/03/2016 VIANNEY AGUSTIN MD Ot I10 ESSENTIAL (PRIMARY) HYPERTENSION 11/03/2016 VIANNEY AGUSTIN MD Ot I25.10 ATHSCL HEART DISEASE OF [place] CORONARY 11/03/2016 VIANNEY AGUSTIN MD Ot 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+] 11/03/2016 VIANNEY AGUSTIN MD Ot Z79.899 OTHER SKIN WASHER (CURRENT) DRUG THERAPY 11/03/2016 BRUNO BUI, CRISSY Finley Ot R07.81 PLEURODYNIA 11/04/2016 Ot V76.12 OTH SCREEN MAMMO-MALIGN NEOPLASM OF [place] 11/04/2016 Ot V72.84 EXAM PRE-OPERATIVE NOS 11/04/2016 Ot 793.89 OTH (ABN) FINDINGS ON RADIOLOGICAL EXAMI 11/04/2016 Ot V76.12 OTH SCREEN MAMMO-MALIGN NEOPLASM OF [place] 11/04/2016 Ot 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 11/04/2016 MAYDA OLVERA APRN Ot 793.89 OTH (ABN) FINDINGS ON RADIOLOGICAL EXAMI 11/04/2016 MAYDA OLVERA APRN Ot V67.9 FOLLOW-UP EXAM NOS 11/04/2016 CRISSY CARR MD Ot 793.89 OTH (ABN) FINDINGS ON RADIOLOGICAL EXAMI 11/04/2016 KATIE BUI, JUANIS Dawson Ot 174.9 MALIGN NEOPL BREAST NOS 11/04/2016 KATIE BUI, JUANIS Dawson Ot V72.83 EXAM PRE-OPERATIVE NEC 11/04/2016 JUANIS WILSNO MD Ot V72.84 EXAM PRE-OPERATIVE NOS 11/04/2016 JUANIS WILSON MD Ot V74.8 SCREEN-BACTERIAL DIS NEC 11/04/2016 KATIE BUI, JUANIS Dawson Ot 793.89 OTH (ABN) FINDINGS ON RADIOLOGICAL EXAMI 11/04/2016 KATIE BUI, JUANIS Dawson Ot V10.3 HX OF BREAST MALIGNANCY 11/04/2016 Ot 174.9 MALIGN NEOPL BREAST NOS 11/04/2016 Ot 729.81 SWELLING OF LIMB 11/04/2016 Ot 723.0 CERVICAL SPINAL STENOSIS 11/04/2016 VAMSI BUI, VIANNEY Hayward Ot 174.9 MALIGN NEOPL BREAST NOS 11/04/2016 Ot 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 11/04/2016 Ot Z12.31 ENCNTR SCREEN MAMMOGRAM FOR MALIGNANT NE 11/04/2016 MAYDA OLVERA APRN Ot M43.16 SPONDYLOLISTHESIS, LUMBAR REGION 11/04/2016 MAYDA OLVERA APRN Ot M47.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, LUMBAR REGION 11/04/2016 MAYDA OLVERA APRN Ot R10.12 LEFT UPPER QUADRANT PAIN 11/04/2016 MAYDA OLVERA APRN Ot R10.32 LEFT LOWER QUADRANT PAIN 11/04/2016 MIKAEL RANDALL DO Ot M54.5 LOW BACK PAIN 11/04/2016 MIKAEL RANDALL DO Ot M54.6 PAIN IN THORACIC SPINE 11/04/2016 VIANNEY AGUSTIN MD Ot 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 11/04/2016 VIANNEY AGUSTIN MD Ot E03.9 HYPOTHYROIDISM, UNSPECIFIED 11/04/2016 VIANNEY AGUSTIN MD Ot E11.9 TYPE 2 DIABETES MELLITUS WITHOUT COMPLIC 11/04/2016 VIANNEY AGUSTIN MD Ot E78.5 HYPERLIPIDEMIA, UNSPECIFIED 11/04/2016 VIANNEY AGUSTIN MD Ot I10 ESSENTIAL (PRIMARY) HYPERTENSION 11/04/2016 VIANNEY AGUSTIN MD Ot I25.10 ATHSCL HEART DISEASE OF [place] CORONARY 11/04/2016 VIANNEY AGUSTIN MD Ot 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+] 11/04/2016 VIANNEY AGUSTIN MD Ot Z79.899 OTHER SKIN WASHER (CURRENT) DRUG THERAPY 11/04/2016 BRUNO BUI, CRISSY Finley Ot R07.81 PLEURODYNIA 11/04/2016 Ot V76.12 OTH SCREEN MAMMO-MALIGN NEOPLASM OF [place] 11/04/2016 Ot V72.84 EXAM PRE-OPERATIVE NOS 11/04/2016 Ot 793.89 OTH (ABN) FINDINGS ON RADIOLOGICAL EXAMI 11/04/2016 Ot V76.12 OTH SCREEN MAMMO-MALIGN NEOPLASM OF [place] 11/04/2016 Ot 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 11/04/2016 MAYDA OLVERA APRN Ot 793.89 OTH (ABN) FINDINGS ON RADIOLOGICAL EXAMI 11/04/2016 MAYDA OLVERA PICTURE PAINTER Ot V67.9 FOLLOW-UP EXAM NOS 11/04/2016 CRISSY CARR MD Ot 793.89 OTH (ABN) FINDINGS ON RADIOLOGICAL EXAMI 11/04/2016 JUANIS WILSON MD Ot 174.9 MALIGN NEOPL BREAST NOS 11/04/2016 JUANIS WILSON MD Ot V72.83 EXAM PRE-OPERATIVE NEC 11/04/2016 JUANIS WILSON MD Ot V72.84 EXAM PRE-OPERATIVE NOS 11/04/2016 JUANIS WILSON MD Ot V74.8 SCREEN-BACTERIAL DIS NEC 11/04/2016 JUANIS WILSON MD Ot 793.89 OTH (ABN) FINDINGS ON RADIOLOGICAL EXAMI 11/04/2016 JUANIS WILSON MD Ot V10.3 HX OF BREAST MALIGNANCY 11/04/2016 Ot 174.9 MALIGN NEOPL BREAST NOS 11/04/2016 Ot 729.81 SWELLING OF LIMB 11/04/2016 Ot 723.0 CERVICAL SPINAL STENOSIS 11/04/2016 VIANNEY AGUSTIN MD Ot 174.9 MALIGN NEOPL BREAST NOS 11/04/2016 Ot 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 11/04/2016 Ot Z12.31 ENCNTR SCREEN MAMMOGRAM FOR MALIGNANT NE 11/04/2016 MAYDA OLVERA PICTURE PAINTER Ot M43.16 SPONDYLOLISTHESIS, LUMBAR REGION 11/04/2016 WADEMAYDA PICTURE PAINTER Ot M47.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, LUMBAR REGION 11/04/2016 WADEMAYDA PICTURE PAINTER Ot R10.12 LEFT UPPER QUADRANT PAIN 11/04/2016 MAYDA OLVERA PICTURE PAINTER Ot R10.32 LEFT LOWER QUADRANT PAIN 11/04/2016 MIKAEL RANDALL DO Ot M54.5 LOW BACK PAIN 11/04/2016 MIKAEL RANDALL DO Ot M54.6 PAIN IN THORACIC SPINE 11/04/2016 VIANNEY AGUSTIN MD, Ot 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 11/04/2016 VIANNEY AGUSTIN MD Ot E03.9 HYPOTHYROIDISM, UNSPECIFIED 11/04/2016 VIANNEY AGUSTIN MD Ot E11.9 TYPE 2 DIABETES MELLITUS WITHOUT COMPLIC 11/04/2016 VIANNEY AGUSTIN MD Ot E78.5 HYPERLIPIDEMIA, UNSPECIFIED 11/04/2016 VIANNEY AGUSTIN MD Ot I10 ESSENTIAL (PRIMARY) HYPERTENSION 11/04/2016 VIANNEY AGUSTIN MD Ot I25.10 ATHSCL HEART DISEASE OF [place] CORONARY 11/04/2016 VIANNEY AGUSTIN MD Ot 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+] 11/04/2016 VIANNEY AGUSTIN MD Ot Z79.899 OTHER SKIN WASHER (CURRENT) DRUG THERAPY 11/04/2016 BRUNO BUI, CRISSY Finley Ot R07.81 PLEURODYNIA 11/05/2016 VIANNEY AGUSTIN MD, Ot 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 11/05/2016 VIANNEY AGUSTIN MD Ot E03.9 HYPOTHYROIDISM, UNSPECIFIED 11/05/2016 VIANNEY AGUSTIN MD Ot E11.9 TYPE 2 DIABETES MELLITUS WITHOUT COMPLIC 11/05/2016 VIANNEY AGUSTIN MD Ot E78.5 HYPERLIPIDEMIA, UNSPECIFIED 11/05/2016 VIANNEY AGUSTIN MD Ot I10 ESSENTIAL (PRIMARY) HYPERTENSION 11/05/2016 VIANNEY AGUSTIN MD Ot I25.10 ATHSCL HEART DISEASE OF [place] CORONARY 11/05/2016 VAMSI BUI, VIANNEY Hayward Ot 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+] 11/05/2016 VIANNEY AGUSTIN MD Ot Z79.899 OTHER SKIN WASHER (CURRENT) DRUG THERAPY 11/16/2016 Ot V76.12 OTH SCREEN MAMMO-MALIGN NEOPLASM OF [place] 11/16/2016 Ot V72.84 EXAM PRE-OPERATIVE NOS 11/16/2016 Ot 793.89 OTH (ABN) FINDINGS ON RADIOLOGICAL EXAMI 11/16/2016 Ot V76.12 OTH SCREEN MAMMO-MALIGN NEOPLASM OF [place] 11/16/2016 Ot 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 11/16/2016 MAYDA OLVERA PICTURE PAINTER Ot 793.89 OTH (ABN) FINDINGS ON RADIOLOGICAL EXAMI 11/16/2016 MAYDA OLVERA PICTURE PAINTER Ot V67.9 FOLLOW-UP EXAM NOS 11/16/2016 CRISSY CARR MD Ot 793.89 OTH (ABN) FINDINGS ON RADIOLOGICAL EXAMI 11/16/2016 JUANIS WILSON MD Ot 174.9 MALIGN NEOPL BREAST NOS 11/16/2016 JUANIS WILSON MD Ot V72.83 EXAM PRE-OPERATIVE NEC 11/16/2016 JUANIS WILSON MD Ot V72.84 EXAM PRE-OPERATIVE NOS 11/16/2016 JUANIS WILSON MD Ot V74.8 SCREEN-BACTERIAL DIS NEC 11/16/2016 JUANIS WILSON MD Ot 793.89 OTH (ABN) FINDINGS ON RADIOLOGICAL EXAMI 11/16/2016 JUANIS WILSON MD Ot V10.3 HX OF BREAST MALIGNANCY 11/16/2016 Ot 174.9 MALIGN NEOPL BREAST NOS 11/16/2016 Ot 729.81 SWELLING OF LIMB 11/16/2016 Ot 723.0 CERVICAL SPINAL STENOSIS 11/16/2016 VIANNEY AGUSTIN MD Ot 174.9 MALIGN NEOPL BREAST NOS 11/16/2016 Ot 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 11/16/2016 Ot Z12.31 ENCNTR SCREEN MAMMOGRAM FOR MALIGNANT NE 11/16/2016 MAYDA OLVERA PICTURE PAINTER Ot M43.16 SPONDYLOLISTHESIS, LUMBAR REGION 11/16/2016 MAYDA OLVERA PICTURE PAINTER Ot M47.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, LUMBAR REGION 11/16/2016 MAYDA OLVERA PICTURE PAINTER Ot R10.12 LEFT UPPER QUADRANT PAIN 11/16/2016 MAYDA OLVERA APRN Ot R10.32 LEFT LOWER QUADRANT PAIN 11/16/2016 PRAKASH VILLAVICENCIO MIKAEL Ruffin Ot M54.5 LOW BACK PAIN 11/16/2016 PRAKASH DOMIKAEL Augustin Ot M54.6 PAIN IN THORACIC SPINE 11/16/2016 VIANNEY AGUSTIN MD Ot 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 11/16/2016 VIANNEY AGUSTIN MD Ot E03.9 HYPOTHYROIDISM, UNSPECIFIED 11/16/2016 VIANNEY AGUSTIN MD Ot E11.9 TYPE 2 DIABETES MELLITUS WITHOUT COMPLIC 11/16/2016 VIANNEY AGUSTIN MD Ot E78.5 HYPERLIPIDEMIA, UNSPECIFIED 11/16/2016 VIANNEY AGUSTIN MD Ot I10 ESSENTIAL (PRIMARY) HYPERTENSION 11/16/2016 VIANNEY AGUSTIN MD Ot I25.10 ATHSCL HEART DISEASE OF [place] CORONARY 11/16/2016 VIANNEY AGUSTIN MD Ot 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+] 11/16/2016 VIANNEY AGUSTIN MD Ot Z79.899 OTHER [facility] (CURRENT) DRUG THERAPY 11/16/2016 BRUNO BUI, CRISSY Finley Ot R07.81 PLEURODYNIA Procedures Results Test Result Range Complete urinalysis with reflex to culture - 06/26/16 17:20 Urine color determination YELLOW NRG Urine clarity determination CLEAR NRG Urine pH measurement by test strip 6.5 5 -9 Specific gravity of urine by test strip 1.010 1.016-1.022 Urine protein assay by test strip, semi-quantitative NEGATIVE NEGATIVE Urine glucose detection by automated test strip NEGATIVE NEGATIVE Erythrocytes detection in urine sediment by light microscopy NEGATIVE NEGATIVE Urine ketones detection by automated test strip NEGATIVE NEGATIVE Urine nitrite detection by test strip NEGATIVE NEGATIVE Urine total bilirubin detection by test strip NEGATIVE NEGATIVE Urine urobilinogen measurement by automated test strip (mass/volume) NORMAL NORMAL Urine leukocyte esterase detection by dipstick 1+ NEGATIVE Automated urine sediment erythrocyte count by microscopy (number/high power field) NONE NRG Automated urine sediment leukocyte count by microscopy (number/high power field ) [HPF] NRG Bacteria detection in urine sediment by light microscopy TRACE NRG Squamous epithelial cells detection in urine sediment by light microscopy 0-2 NRG Crystals detection in urine sediment by light microscopy NONE NRG Casts detection in urine sediment by light microscopy NONE NRG Mucus detection in urine sediment by light microscopy NEGATIVE NRG Complete urinalysis with reflex to culture NO NRG Bacterial urine culture - 06/26/16 17:20 Bacterial urine culture [id number] NRG COLONY COUNT 10,000/ML - 100,000/ML NRG FTX;REPORTABLE SENSITIVITY REPORTED AT 1528, 9-25 NRG Bacterial susceptibility panel - 06/26/16 17:20 Gentamicin susceptibility test by minimum inhibitory concentration <= NRG Trimethoprim/sulfamethoxazole susceptibility test by minimum inhibitoryconcentration <= NRG Ampicillin susceptibility test by minimum inhibitory concentration >= NRG Tobramycin susceptibility test by minimum inhibitory concentration <= NRG Cefazolin susceptibility test by minimum inhibitory concentration <= NRG Ceftriaxone susceptibility test by minimum inhibitory concentration <= NRG Ampicillin/sulbactam susceptibility test by minimum inhibitory concentration 4 NRG Piperacillin/tazobactam susceptibility test by minimum inhibitory concentration <= NRG Ciprofloxacin susceptibility test by minimum inhibitory concentration <= NRG Meropenem susceptibility test by minimum inhibitory concentration <= NRG Nitrofurantoin susceptibility test by minimum inhibitory concentration <= NRG Aztreonam susceptibility test by minimum inhibitory concentration <= NRG Extended spectrum beta lactamase (ESBL) producing bacteria susceptibility test by minimum inhibitory concentration - NRG Complete blood count (CBC) with automated white blood cell (WBC) differential - 06/26/16 18:12 Blood leukocytes automated count (number/volume) 8.5 10*3/ uL 4.3-11.0 Blood erythrocytes automated count (number/volume) 4.11 10*6 /uL 4.35-5.85 Venous blood hemoglobin measurement (mass/volume) 12.7 g/dL 11.5-16.0 Blood hematocrit (volume fraction) 38 % 35-52 Automated erythrocyte mean corpuscular volume 92 [foz_us] 80-99 Automated erythrocyte mean corpuscular hemoglobin (mass per erythrocyte) 31 pg 25-34 Automated erythrocyte mean corpuscular hemoglobin concentration measurement ( mass/volume) 34 g/dL 32-36 Automated erythrocyte distribution width ratio 13.5 % 10.0-14.5 Automated blood platelet count (count/volume) 206 10*3/uL 130-400 Automated blood platelet mean volume measurement 9.8 [foz_us ] 7.4-10.4 Automated blood neutrophils/100 leukocytes 60 % 42-75 Automated blood lymphocytes/100 leukocytes 23 % 12-44 Blood monocytes/100 leukocytes 12 % 0-12 Automated blood eosinophils/100 leukocytes 3 % 0-10 Automated blood basophils/100 leukocytes 1 % 0-10 Blood neutrophils automated count (number/volume) 5.1 10*3 1.8-7.8 Blood lymphocytes automated count (number/volume) 2.0 10*3 1.0-4.0 Blood monocytes automated count (number/volume) 1.0 10*3 0.0-1.0 Automated eosinophil count 0.3 10*3/uL 0.0-0.3 Automated blood basophil count (count/volume) 0.1 10*3/uL 0.0-0.1 Blood lactic acid measurement (moles/volume) - 06/26/16 18:12 Blood lactic acid measurement (moles/volume) 0.8 mmol/L 0.5-2.0 Comprehensive metabolic panel - 06/26/16 18:12 Serum or plasma sodium measurement (moles/volume) 140 mmol/ L 135-145 Serum or plasma potassium measurement (moles/volume) 3.7 mmol/L 3.6-5.0 Serum or plasma chloride measurement (moles/volume) 108 mmol /L 98-107 Carbon dioxide 20 mmol/L 21-32 Serum or plasma anion gap determination (moles/volume) 12 mmol/L 5-14 Serum or plasma urea nitrogen measurement (mass/volume) 18 mg/dL 7-18 Serum or plasma creatinine measurement (mass/volume) 0.72 mg /dL 0.60-1.30 Serum or plasma urea nitrogen/creatinine mass ratio 25 NRG Serum or plasma creatinine measurement with calculation of estimated glomerular filtration rate > NRG Serum or plasma glucose measurement (mass/volume) 134 mg/dL 70-105 Serum or plasma calcium measurement (mass/volume) 10.1 mg/ dL 8.5-10.1 Serum or plasma total bilirubin measurement (mass/volume) 0.4 mg/dL 0.1-1.0 Serum or plasma alkaline phosphatase measurement (enzymatic activity/volume) 81 U/L 40-136 Serum or plasma aspartate aminotransferase measurement (enzymatic activity/ volume) 15 U/L 5-34 Serum or plasma alanine aminotransferase measurement (enzymatic activity/volume ) 12 U/L 0-55 Serum or plasma protein measurement (mass/volume) 6.7 g/dL 6.4-8.2 Serum or plasma albumin measurement (mass/volume) 4.1 g/dL 3.2-4.5 Serum or plasma amylase measurement (enzymatic activity/volume) - 06/26/16 18: 12 Serum or plasma amylase measurement (enzymatic activity/volume) 40 U/L 25-125 Lipase - 06/26/16 18:12 Lipase 19 U/L 8-78 Bacterial blood culture - 06/26/16 18:12 Bacterial blood culture NG NRG Bacterial blood culture - 06/26/16 18:55 Bacterial blood culture NG NRG Encounters ACCT No. Visit Date/Time Discharge Status Pt. Type Provider Facility Loc./Unit Complaint [id number] 05/06/2016 11:04:00 2015 00:01:00 DIS Outpatient VIANNEY AGUSTIN MD [facility] ONC [id number] 06/26/2016 17:12:00 2015 19:42:00 DIS Emergency PRISCILLA DO LARRY Yesy [facility] ER BACK PAIN [id number] 02/05/2016 10:53:00 2015 10:47:00 DIS Outpatient VIANNEY AGUSTIN MD [facility] ONC [id number] 11/06/2015 10:15:00 2015 00:01:00 DIS Outpatient VIANNEY AGUSTIN MD [facility] ONC [id number] 05/15/2015 13:30:00 2014 00:01:00 ERNESTO Outpatient VIANNEY AGUSTIN MD [facility] ONC [id number] 02/12/2015 13:21:00 2014 00:01:00 VIANNEY Phelps MD [facility] ONC [id number] 01/21/2015 11:32:00 2014 23:59:59 VIANNEY Nguyen MD [facility] CARD BREAST CANCER [id number] 10/16/2014 11:05:00 2014 00:01:00 ERNESTO Outpatient VIANNEY AGUSTIN MD [facility] ONC [id number] 06/19/2014 09:45:00 2013 00:01:00 DIS Outpatient VIANNEY AGUSTIN MD [facility] ONC [id number] 07/12/2014 09:05:00 2013 23:59:59 CLS Outpatient JUANIS WILSON MD [facility] RAD F/U 4 MONTH [id number] 02/20/2014 09:49:00 2013 00:01:00 DIS Outpatient VIANNEY AGUSTIN MD [facility] ONC [id number] 12/26/2013 07:23:00 2013 10:30:00 DIS Outpatient JUANIS WILSON MD [facility] RAD BREAST CA [id number] 12/25/2013 15:18:00 2013 23:59:59 CLS Outpatient JUANIS WILSON MD [facility] PREOP RIGHT BREAST CANCER [id number] 12/13/2013 13:20:00 2013 23:59:59 CLS Outpatient CRISSY CARR MD [facility] RAD 6 MO FOLLOW UP [id number] 06/14/2013 13:50:00 2012 23:59:59 CLS Outpatient MAYDA OLVERA APRN [facility] RAD SIX MONTH FOLLOW-UP [id number] 11/04/2016 10:57:00 ACT Outpatient VIANNEY AGUSTIN MD [facility] ONC [id number] 10/01/2016 13:05:00 ACT Outpatient CRISSY ACRR MD [facility] RAD LT RIB PAIN [id number] 07/09/2016 16:47:00 ACT Outpatient MIKAEL RANDALL DO [facility] RAD THORACIC AND LUMBAR PAIN [id number] 07/02/2016 12:05:00 ACT Outpatient MAYDA OLVERA APRN [facility] RAD SEVERE LEFT SIDED PAIN [id number] 07/15/2015 11:19:00 Document Registration [id number] 12/10/2014 11:02:00 Document Registration [id number] 12/05/2014 13:56:00 Document Registration [id number] 01/04/2013 14:26:00 Document Registration [id number] 12/19/2012 09:47:00 Document Registration [id number] 05/04/2012 06:38:00 Document Registration [id number] 05/03/2012 08:17:00 Document Registration [id number] 10/07/2011 09:00:00 Document Registration
--- NOTE | 2016-11-18 13:43 | Diagnostic Imaging Report ---
EXAMINATION: DEXA scan. INDICATION: Osteopenia. TECHNIQUE: Bone mineral density estimated based on dual energy radiography over the lumbar spine and femoral necks, was performed. FINDINGS: The lumbar spine T-score is -5.2. This is a 40% decreased density measurement compared to 2010 study. T score over the femoral neck on the left is -2.6 and on the right is -2.5. This is 27% decreased density measurement compared to 2010. IMPRESSION: Significant osteoporosis, significantly worse compared to 2010. Dictated by: Dictated on workstation # [id number]
--- NOTE | 2016-11-19 12:31 | Diagnostic Imaging Report ---
Bilateral screening mammogram. The current study was also evaluated with a Computer Aided Detection (CAD) system. INDICATION: Screening. No current complaints stated on the questionnaire. COMPARISON: 07/14/2015. FINDINGS: The breasts are composed of heterogeneously dense parenchyma which may decrease mammographic sensitivity. Post-therapeutic changes in the right breast are seen with dystrophic calcifications and skin thickening similar to prior exams. There is no developing mass, architectural distortion, or suspicious cluster of calcification. Allowing for technique and positional differences, no suspicious change is seen. IMPRESSION: No significant change. ACR BI-RADS Category 2: Benign findings. Result letter will be mailed to the patient. Note: At least 10% of breast cancer is not imaged by mammography. Dictated by: Dictated on workstation # [id number]
== END ==
LOC: RAD 09:57
PROVIDERS: ATTEND Internal Medicine Hematology & Oncology
DX: Z12.31 Encounter for screening mammogram for malignant neoplasm of breast (principal); M81.0 Age-related osteoporosis without current pathological fracture; Z85.3 Personal history of malignant neoplasm of breast
CPT/HCPCS: 77067; 77080

== ENCOUNTER → 2016-12-30 | Outpatient (CLI) | payer MEDICARE ==
[~2016-12-30] MED LIST changes: +BARIUM SUSPENSION 2.1% (VANILLA SILQ) 450 ML PO ONE; +CATHETER FLUSH 10 ML SYR IV PRN; +IOHEXOL 350 MG/ML 100 ML (OMNIPAQUE 350) VIAL IV ONE; +NS 100 ML (IVPB) BAG IV ONE
--- NOTE | 2016-12-30 12:55 | Diagnostic Imaging Report ---
PROCEDURE: CT abdomen and pelvis with and without contrast. TECHNIQUE: Precontrast acquisitions were acquired through the abdomen and pelvis. Multiple contiguous axial images were obtained through the abdomen and pelvis after the administration of intravenous contrast. INDICATION: Lower back pain with left-sided abdominal pain. History of breast cancer. COMPARISON: 06/26/2016. FINDINGS: Included views of the lung bases are partially obscured secondary to respiratory motion artifact. There is a small 5 mm micronodule within the lateral left lower lobe (image 11, series 3). This however is stable compared to prior exam. CT abdomen: Appendix is slightly prominent in size measuring 8 mm in diameter. Hypodense debris is noted filling the appendix. Note is also made of some hypodense fullness at the tip of the cecum near the base of the appendix (image 46, series 4). There is no pericecal or periappendiceal inflammatory stranding. Proximal small bowel loops are nondistended. There is colonic diverticulosis, but no CT evidence of acute diverticulitis. Bilateral nonobstructive renal calculi are noted and may be vascular in nature. Benign-appearing cyst is seen extending exophytically from the inferior pole of the right kidney. A few subcentimeter rounded hypoenhancing foci are also noted on the left. These may represent small cysts as well but are too small to adequately characterize based on this exam. Otherwise, no solid enhancing renal mass-type lesions are identified. The spleen, adrenal glands, pancreas, and liver have a normal appearance. There is no loculated fluid collection, free fluid, or free air within the abdomen. No abnormal mesenteric or retroperitoneal adenopathy is seen. There is diffuse calcified aortic and arterial atherosclerosis. Bony structures show no acute abnormalities. CT pelvis: Urinary bladder wall is mildly thickened in appearance. Urinary bladder is only mildly distended. There is no loculated fluid collection, free fluid, or free air within the pelvis. No abnormal lymph nodes are seen. Bony structures show no acute abnormalities. IMPRESSION: 1. Colonic diverticulosis but no CT evidence of acute diverticulitis. 2. Prominent appearance to the appendix as described above. This may be artifactual and related to hypodense stool products at the tip of the cecum extending into the appendix. Malignancy such as appendiceal, however, cannot be excluded. Acute appendicitis is felt to be unlikely. Clinical correlation recommended. 3. Thickened appearance of the urinary bladder wall. This may be artifactual and related to incomplete distention, but may also be seen with underlying cystitis. Clinical correlation recommended. 4. Right renal cysts with similar-appearing subcentimeter hypodense hypoenhancing rounded foci on the left. These may represent cysts as well but are too small to adequately characterize based on this exam. 5. A 5-mm micronodular density within the lateral left lower lobe stable compared to 06/26/2016. Six-month follow-up recommended. Dictated by: Dictated on workstation # [id number]
== END ==
LOC: RAD 11:30
PROVIDERS: ATTEND Internal Medicine Hematology & Oncology
DX: K57.30 Diverticulosis of large intestine without perforation or abscess without bleeding (principal); N28.1 Cyst of kidney, acquired; N32.9 Bladder disorder, unspecified; R91.8 Other nonspecific abnormal finding of lung field; R10.9 Unspecified abdominal pain; M54.5 Low back pain
CPT/HCPCS: 74178

== ENCOUNTER 2016-12-31 10:27 | Outpatient (RCR) | payer MEDICARE, OTHER ==
[2016-11-04 11:08] LABS: BASOPHILS # (AUTO) 0.1 10^3/uL (0.0-0.1); BASOPHILS % (AUTO) 2 % (0-10); EOSINOPHILS # (AUTO) 0.2 10^3/uL (0.0-0.3); EOSINOPHILS % (AUTO) 3 % (0-10); LYMPHOCYTES % (AUTO) 28 % (12-44); MEAN CORPUSCULAR HEMOGLOBIN 30 PG (25-34); MEAN CORPUSCULAR HGB CONC 35 G/DL (32-36); MEAN CORPUSCULAR VOLUME 88 FL (80-99); MEAN PLATELET VOLUME 9.8 FL (7.4-10.4); MONOCYTES # (AUTO) 0.8 X 10^3 (0.0-1.0); MONOCYTES % (AUTO) 11 % (0-12); NEUTROPHILS % (AUTO) 56 % (42-75); PLATELET COUNT 234 10^3/uL (130-400); RED BLOOD COUNT 4.32 10^6/uL (4.35-5.85); RED CELL DISTRIBUTION WIDTH 13.7 % (10.0-14.5); WHITE BLOOD COUNT 7.1 10^3/uL (4.3-11.0)
[2016-11-04 11:42] LABS: ALANINE AMINOTRANSFERASE 9 U/L (0-55); ALBUMIN 3.8 G/DL (3.2-4.5); ANION GAP 7 MMOL/L (5-14); ASPARTATE AMINO TRANSFERASE 13 U/L (5-34); BILIRUBIN,TOTAL 0.5 MG/DL (0.1-1.0); BLOOD UREA NITROGEN 12 MG/DL (7-18); BUN/CREATININE RATIO 16; CALCIUM 9.9 MG/DL (8.5-10.1); CARBON DIOXIDE 31 MMOL/L (21-32); CHLORIDE 102 MMOL/L (98-107); CREATININE SERUM 0.74 MG/DL (0.60-1.30); GFR ESTIMATED > 60; GLUCOSE 194 MG/DL (70-105); POTASSIUM 3.5 MMOL/L (3.6-5.0); SODIUM 140 MMOL/L (135-145); TOTAL PROTEIN 6.1 G/DL (6.4-8.2)
[2016-11-04 12:04] LABS: THYROID STIMULATING HORMONE 2.19 UIU/ML (0.35-4.94)
[2016-11-25 10:52] LABS: BASOPHILS # (AUTO) 0.1 10^3/uL (0.0-0.1); BASOPHILS % (AUTO) 1 % (0-10); EOSINOPHILS # (AUTO) 0.2 10^3/uL (0.0-0.3); EOSINOPHILS % (AUTO) 2 % (0-10); LYMPHOCYTES # (AUTO) 1.7 X 10^3 (1.0-4.0); LYMPHOCYTES % (AUTO) 19 % (12-44); MEAN CORPUSCULAR HEMOGLOBIN 30 PG (25-34); MEAN CORPUSCULAR HGB CONC 33 G/DL (32-36); MEAN CORPUSCULAR VOLUME 91 FL (80-99); MONOCYTES # (AUTO) 0.9 X 10^3 (0.0-1.0); MONOCYTES % (AUTO) 9 % (0-12); NEUTROPHILS # (AUTO) 6.4 X 10^3 (1.8-7.8); NEUTROPHILS % (AUTO) 69 % (42-75); PLATELET COUNT 244 10^3/uL (130-400); RED BLOOD COUNT 4.19 10^6/uL (4.35-5.85); RED CELL DISTRIBUTION WIDTH 14.1 % (10.0-14.5); WHITE BLOOD COUNT 9.2 10^3/uL (4.3-11.0)
[2016-11-25 11:24] LABS: ALANINE AMINOTRANSFERASE 11 U/L (0-55); ALBUMIN 3.7 G/DL (3.2-4.5); ANION GAP 8 MMOL/L (5-14); ASPARTATE AMINO TRANSFERASE 15 U/L (5-34); BILIRUBIN,TOTAL 0.4 MG/DL (0.1-1.0); BLOOD UREA NITROGEN 19 MG/DL (7-18); BUN/CREATININE RATIO 23; CALCIUM 9.6 MG/DL (8.5-10.1); CARBON DIOXIDE 26 MMOL/L (21-32); CHLORIDE 109 MMOL/L (98-107); CREATININE SERUM 0.83 MG/DL (0.60-1.30); GFR ESTIMATED > 60; GLUCOSE 150 MG/DL (70-105); POTASSIUM 3.8 MMOL/L (3.6-5.0); SODIUM 143 MMOL/L (135-145); TOTAL PROTEIN 6.1 G/DL (6.4-8.2)
[2016-12-27 13:08] LABS: BASOPHILS # (AUTO) 0.1 10^3/uL (0.0-0.1); BASOPHILS % (AUTO) 1 % (0-10); EOSINOPHILS # (AUTO) 0.1 10^3/uL (0.0-0.3); EOSINOPHILS % (AUTO) 2 % (0-10); LYMPHOCYTES # (AUTO) 2.2 X 10^3 (1.0-4.0); LYMPHOCYTES % (AUTO) 26 % (12-44); MEAN CORPUSCULAR HEMOGLOBIN 30 PG (25-34); MEAN CORPUSCULAR HGB CONC 33 G/DL (32-36); MEAN CORPUSCULAR VOLUME 91 FL (80-99); MEAN PLATELET VOLUME 10.2 FL (7.4-10.4); MONOCYTES # (AUTO) 0.9 X 10^3 (0.0-1.0); MONOCYTES % (AUTO) 11 % (0-12); NEUTROPHILS # (AUTO) 5.2 X 10^3 (1.8-7.8); NEUTROPHILS % (AUTO) 62 % (42-75); PLATELET COUNT 223 10^3/uL (130-400); RED BLOOD COUNT 4.19 10^6/uL (4.35-5.85); RED CELL DISTRIBUTION WIDTH 13.9 % (10.0-14.5); WHITE BLOOD COUNT 8.5 10^3/uL (4.3-11.0)
[2016-12-27 13:42] LABS: ALANINE AMINOTRANSFERASE 9 U/L (0-55); ALBUMIN 3.9 G/DL (3.2-4.5); ANION GAP 7 MMOL/L (5-14); ASPARTATE AMINO TRANSFERASE 14 U/L (5-34); BILIRUBIN,TOTAL 0.3 MG/DL (0.1-1.0); BLOOD UREA NITROGEN 20 MG/DL (7-18); BUN/CREATININE RATIO 24; CALCIUM 9.5 MG/DL (8.5-10.1); CARBON DIOXIDE 25 MMOL/L (21-32); CHLORIDE 109 MMOL/L (98-107); CREATININE SERUM 0.85 MG/DL (0.60-1.30); GFR ESTIMATED > 60; GLUCOSE 185 MG/DL (70-105); MAGNESIUM 2.3 MG/DL (1.8-2.4); POTASSIUM 4.6 MMOL/L (3.6-5.0); SODIUM 141 MMOL/L (135-145); TOTAL PROTEIN 6.6 G/DL (6.4-8.2)
[2016-12-27 13:56] LABS: THYROID STIMULATING HORMONE 2.21 UIU/ML (0.35-4.94)
[~2016-12-31 10:27] MED LIST changes: -BARIUM SUSPENSION 2.1% (VANILLA SILQ) 450 ML PO ONE; -CATHETER FLUSH 10 ML SYR IV PRN; +DENOSUMAB 60 MG/1 ML (PROLIA) CANCER CTR SQ SCH; -IOHEXOL 350 MG/ML 100 ML (OMNIPAQUE 350) VIAL IV ONE; -NS 100 ML (IVPB) BAG IV ONE; +ZOLEDRONATE 5 MG/100 ML (RECLAST) BTL IV ONE
== END 2017-02-02 | disposition home or self-care (01) ==
LOC: ONC 10:27
PROVIDERS: ATTEND Internal Medicine Hematology & Oncology
DX: C50.911 Malignant neoplasm of unspecified site of right female breast (principal); Z17.0 Estrogen receptor positive status [ER+]; E03.9 Hypothyroidism, unspecified; I10 Essential (primary) hypertension; E11.9 Type 2 diabetes mellitus without complications; E78.5 Hyperlipidemia, unspecified; I25.10 Atherosclerotic heart disease of native coronary artery without angina pectoris; Z79.899 Other long term (current) drug therapy
CPT/HCPCS: 36415; 80053; 83735; 84439; 84443; 85025; 86300; 96372; 99213

== ENCOUNTER 2017-01-03 13:18 | Outpatient (CLI) | payer MEDICARE ==
[~2017-01-03] VITALS: Ht 157.5 cm; Wt 63.5 kg
[~2017-01-03 13:18] MED LIST changes: -DENOSUMAB 60 MG/1 ML (PROLIA) CANCER CTR SQ SCH; -ZOLEDRONATE 5 MG/100 ML (RECLAST) BTL IV ONE
[2017-01-03] MEDS ORDERED: LIDOCAINE 1% INJ 20 ML (XYLOCAINE) VIAL ONE (13:34)
[2017-01-03] MEDS ORDERED: BUPIVACAINE 0.25% 30 ML (SENSORCAINE) VIAL ONE (13:34)
[2017-01-03] MEDS ORDERED: TRIAMCINOLONE ACET (KENALOG-40) 40 MG/ML 1 ML VIAL ONE (13:34)
[2017-01-03 14:13] VITALS: BP 138/70
--- NOTE | 2017-01-03 14:28 | Pain Medicine-Procedure ---
Procedure Pre-Op/Post-Op Diagnosis Diagnosis: sacrococcygeal disorder Indications for Operation Hip pain Attending Surgeon Jose Alfredo Procedure Date of Service: Jan 03, 2017 Procedure: Flouroscopic guided left sacroiliac joint injection PROCEDURE IN DETAIL: After obtaining informed consent from the patient, the patient's chart was reviewed. The patient was then brought to the procedure room and placed in the prone position. A time out was performed. The back was prepped with antiseptic solution and under fluoroscopic guidance the patient's sacroiliac joint on the left side was identified. Left sacroiliac joint was identified with fluoroscopic guidance and 2 mL's of 1% lidocaine was used to anesthestize the skin and then one 22-gauge 3.5 inch spinal needle was inserted and advance under flouroscopic guidance until it was in the posterior inferior 1 /3 of the SI joint on the left side. After negative aspiration, needle was injected with 80 mg of Kenalog along with 2 mL's of 0.25% marcaine. Needle was then flushed with 1% lidocaine and then removed. Band-Aids were applied to all the sites and the patient tolerated the procedure well and was taken to the recovery area in stable condition. Complications None LUANNE BARROS MD Jan 03, 2017 2:28 pm
== END 2017-01-03 14:14 ==
LOC: CARD 13:18
PROVIDERS: ATTEND Pain Medicine Pain Medicine
DX: M53.3 Sacrococcygeal disorders, not elsewhere classified (principal); Z79.899 Other long term (current) drug therapy
CPT/HCPCS: 27096

== ENCOUNTER 2017-02-21 12:46 | Outpatient (CLI) | payer MEDICARE ==
[~2017-02-21] VITALS: Ht 157.5 cm; Wt 63.5 kg
[2017-02-21] MEDS ORDERED: LIDOCAINE 1% INJ 20 ML (XYLOCAINE) VIAL ONE (12:53)
[2017-02-21] MEDS ORDERED: TRIAMCINOLONE ACET (KENALOG-40) 40 MG/ML 1 ML VIAL ONE (12:53)
[2017-02-21] MEDS ORDERED: BUPIVACAINE 0.25% 30 ML (SENSORCAINE) VIAL ONE (12:53)
[2017-02-21 13:05] VITALS: BP 187/77
[2017-02-21 13:39] VITALS: BP 185/82
--- NOTE | 2017-02-21 16:06 | Pain Medicine-Procedure ---
Procedure Pre-Op/Post-Op Diagnosis Diagnosis: sacrococcygeal disorder Indications for Operation Hip pain Attending Surgeon Jose Alfredo Procedure Date of Service: February 21, 2017 Procedure: Flouroscopic guided left sacroiliac joint injection PROCEDURE IN DETAIL: After obtaining informed consent from the patient, the patient's chart was reviewed. The patient was then brought to the procedure room and placed in the prone position. A time out was performed. The back was prepped with antiseptic solution and under fluoroscopic guidance the patient's sacroiliac joint on the left side was identified. Left sacroiliac joint was identified with fluoroscopic guidance and 2 mL's of 1% lidocaine was used to anesthestize the skin and then one 22-gauge 3.5 inch spinal needle was inserted and advance under flouroscopic guidance until it was in the posterior inferior 1 /3 of the SI joint on the left side. After negative aspiration, needle was injected with 80 mg of Kenalog along with 2 mL's of 0.25% marcaine. Needle was then flushed with 1% lidocaine and then removed. Band-Aids were applied to all the sites and the patient tolerated the procedure well and was taken to the recovery area in stable condition. Complications None LUANNE BARROS MD February 21, 2017 4:06 pm
== END 2017-02-21 13:43 | disposition home or self-care (01) ==
LOC: CARD 12:46
PROVIDERS: ATTEND Pain Medicine Pain Medicine
DX: M53.3 Sacrococcygeal disorders, not elsewhere classified (principal)
CPT/HCPCS: 27096

== ENCOUNTER 2017-03-31 11:03 | Outpatient (RCR) | payer MEDICARE ==
[2017-03-31 10:58] LABS: BASOPHILS # (AUTO) 0.1 10^3/uL (0.0-0.1); BASOPHILS % (AUTO) 1 % (0-10); EOSINOPHILS # (AUTO) 0.3 10^3/uL (0.0-0.3); EOSINOPHILS % (AUTO) 4 % (0-10); LYMPHOCYTES # (AUTO) 1.6 X 10^3 (1.0-4.0); LYMPHOCYTES % (AUTO) 19 % (12-44); MEAN CORPUSCULAR HEMOGLOBIN 31 PG (25-34); MEAN CORPUSCULAR HGB CONC 34 G/DL (32-36); MEAN CORPUSCULAR VOLUME 92 FL (80-99); MEAN PLATELET VOLUME 9.6 FL (7.4-10.4); MONOCYTES # (AUTO) 0.9 X 10^3 (0.0-1.0); MONOCYTES % (AUTO) 11 % (0-12); NEUTROPHILS # (AUTO) 5.3 X 10^3 (1.8-7.8); NEUTROPHILS % (AUTO) 65 % (42-75); PLATELET COUNT 231 10^3/uL (130-400); RED CELL DISTRIBUTION WIDTH 14.3 % (10.0-14.5); WHITE BLOOD COUNT 8.2 10^3/uL (4.3-11.0)
[2017-03-31 11:40] LABS: ALANINE AMINOTRANSFERASE 14 U/L (0-55); ALBUMIN 3.7 GM/DL (3.2-4.5); ANION GAP 9 MMOL/L (5-14); ASPARTATE AMINO TRANSFERASE 15 U/L (5-34); BILIRUBIN,TOTAL 0.5 MG/DL (0.1-1.0); BLOOD UREA NITROGEN 20 MG/DL (7-18); BUN/CREATININE RATIO 25; CARBON DIOXIDE 24 MMOL/L (21-32); CHLORIDE 107 MMOL/L (98-107); CREATININE SERUM 0.79 MG/DL (0.60-1.30); GFR ESTIMATED > 60; GLUCOSE 186 MG/DL (70-105); POTASSIUM 4.2 MMOL/L (3.6-5.0); SODIUM 140 MMOL/L (135-145); TOTAL PROTEIN 6.4 GM/DL (6.4-8.2)
== END 2017-04-28 10:46 | disposition home or self-care (01) ==
LOC: ONC 11:03
PROVIDERS: ATTEND Internal Medicine Hematology & Oncology
DX: C50.411 Malignant neoplasm of upper-outer quadrant of right female breast (principal); Z17.0 Estrogen receptor positive status [ER+]; R97.0 Elevated carcinoembryonic antigen [CEA]; E03.9 Hypothyroidism, unspecified; I10 Essential (primary) hypertension; E11.9 Type 2 diabetes mellitus without complications; E78.5 Hyperlipidemia, unspecified; I25.10 Atherosclerotic heart disease of native coronary artery without angina pectoris; Z79.899 Other long term (current) drug therapy
CPT/HCPCS: 36415; 80053; 82378; 85025; 86300; 99213

== ENCOUNTER → 2017-04-19 | Outpatient (CLI) | payer MEDICARE ==
[~2017-04-19] MED LIST changes: +CALC-823 PO; +EST30C VG; +GLIP5TAB13 PO; +MELO15TA39 PO; +MULT-228 PO; +MV-M1TAB20 PO; +SENN-140 PO; +SIMV40TA4 PO; +SITA100T12 PO; +[UNRECOGNIZED DRUG - OTHER] PO
== END ==
LOC: RAD 07:35
PROVIDERS: ATTEND Internal Medicine Hematology & Oncology
DX: R91.1 Solitary pulmonary nodule (principal); R97.0 Elevated carcinoembryonic antigen [CEA]; R10.9 Unspecified abdominal pain; C50.411 Malignant neoplasm of upper-outer quadrant of right female breast

== ENCOUNTER → 2017-04-22 | Outpatient (CLI) | payer MEDICARE ==
[~2017-04-22] MED LIST changes: +BARIUM SUSPENSION 2.1% (VANILLA SILQ) 450 ML PO ONE; -CALC-823 PO; +CATHETER FLUSH 10 ML SYR IV PRN; -EST30C VG; -GLIP5TAB13 PO; +IOHEXOL 350 MG/ML 100 ML (OMNIPAQUE 350) VIAL IV ONE; -MELO15TA39 PO; -MULT-228 PO; -MV-M1TAB20 PO; +NS 100 ML (IVPB) BAG IV ONE; -SENN-140 PO; -SIMV40TA4 PO; -SITA100T12 PO; -[UNRECOGNIZED DRUG - OTHER] PO
--- NOTE | 2017-04-22 11:13 | Diagnostic Imaging Report ---
PROCEDURE: CT chest with contrast, CT abdomen and pelvis with and without contrast. TECHNIQUE: Pre and post intravenous contrast axial imaging of the abdomen and pelvis and post contrast axial imaging of the chest were performed. INDICATION: Followup of pulmonary nodule noted in the left lower lobe on recent CT scan of the abdomen from 12/30/2016. FINDINGS: CT chest: The lungs are well aerated. There is mild pleural thickening noted posteriorly along the left lower lung. The 5 mm nodule in the costophrenic angle on the left laterally is unchanged. No new lesions have developed. There is good opacification of the aorta and pulmonary arteries. Postoperative change is noted from median sternotomy. No evidence of aortic aneurysm. No dissection. No mediastinal or hilar adenopathy of pathologic size. No blastic bony lesion. IMPRESSION: 1. Stable 5 mm nodule left lung base. 2. Postoperative residue with median sternotomy changes. CT abdomen and pelvis: Liver appears normal. Gallbladder and bile ducts are normal. The pancreas and spleen are normal. Adrenal glands are normal. The kidneys show a small cyst off the lower pole of the right kidney measuring approximately 7 mm. There is normal enhancement of the abdominal organs and vessels. No evidence of aortic aneurysm. Atherosclerotic changes are noted of the aorta. Oral contrast is present in the stomach and small bowel which appears normal. The colon shows normal stool and gas pattern. The appendix is not distended. No periappendiceal fluid. There is diverticulosis of the sigmoid colon without evidence of diverticulitis. Uterus is mildly enlarged. No intra-abdominal adenopathy. No free air or free fluid. IMPRESSION: 1. No changes are seen to indicate metastatic disease. 2. Small benign cortical cyst off the lower pole of the right kidney which is stable in appearance. 3. Diverticulosis of the sigmoid colon without diverticulitis. Dictated by: Dictated on workstation # [id number]
== END ==
LOC: RAD 09:17
PROVIDERS: ATTEND Internal Medicine Hematology & Oncology
DX: R91.1 Solitary pulmonary nodule (principal); N28.1 Cyst of kidney, acquired; K57.30 Diverticulosis of large intestine without perforation or abscess without bleeding; R97.0 Elevated carcinoembryonic antigen [CEA]; R10.9 Unspecified abdominal pain; C50.411 Malignant neoplasm of upper-outer quadrant of right female breast
CPT/HCPCS: 71260; 74178

== ENCOUNTER → 2017-04-26 | Outpatient (CLI) | payer MEDICARE ==
[~2017-04-26] MED LIST changes: -BARIUM SUSPENSION 2.1% (VANILLA SILQ) 450 ML PO ONE; +CALC-823 PO; -CATHETER FLUSH 10 ML SYR IV PRN; +EST30C VG; +GLIP5TAB13 PO; -IOHEXOL 350 MG/ML 100 ML (OMNIPAQUE 350) VIAL IV ONE; +MELO15TA39 PO; +MULT-228 PO; +MV-M1TAB20 PO; -NS 100 ML (IVPB) BAG IV ONE; +SENN-140 PO; +SIMV40TA4 PO; +SITA100T12 PO; +[UNRECOGNIZED DRUG - OTHER] PO
--- NOTE | 2017-04-26 16:31 | Diagnostic Imaging Report ---
EXAMINATION: PET-CT TECHNIQUE: Serum glucose level at the time of the study is: 180 mg/dL. 10.1 mCi of FDG was administered intravenously followed by obtaining PET images with corresponding noncontrast CT scan images. The CT scan was performed for anatomic correlation and attenuation correction and was not performed according to the diagnostic protocol of the areas covered. The scan was performed from the head to mid thighs. INDICATION: Lung nodule. History of breast cancer. FINDINGS: The brain demonstrates symmetric FDG uptake. There is no suspicious hypermetabolic lesion seen in the neck. No suspicious hypermetabolic lesion in the chest is seen. There is intense hypermetabolism in the cecum with associated fullness noted on the localizer CT scan. Associated maximum SUV is 20. Other areas of lower intensity activity in the bowel loops in a less focal manner seen are likely physiologic. No other suspicious hypermetabolic lesion seen in the abdomen or pelvis. IMPRESSION: Intensely hypermetabolic mass is seen in the base of the cecum concerning for colon cancer. No associated involved lymph nodes or distant metastasis are appreciated. The findings were discussed with Dr. Silva, covering for Dr. Krishnamurthy at 4:[address] Chairez. Dictated by: Dictated on workstation # [id number]
== END ==
LOC: RAD 09:13
PROVIDERS: ATTEND Internal Medicine Hematology & Oncology
DX: K63.89 Other specified diseases of intestine (principal); R91.1 Solitary pulmonary nodule; R97.0 Elevated carcinoembryonic antigen [CEA]; Z85.3 Personal history of malignant neoplasm of breast

== ENCOUNTER 2017-05-12 05:46 | Outpatient (CLI) | payer MEDICARE ==
[~2017-05-12] VITALS: Ht 157.5 cm; Wt 61.7 kg
[~2017-05-12 05:46] MED LIST changes: -CALC-823 PO; -EST30C VG; -GLIP5TAB13 PO; -MELO15TA39 PO; -MULT-228 PO; -MV-M1TAB20 PO; -SENN-140 PO; -SIMV40TA4 PO; -SITA100T12 PO; -[UNRECOGNIZED DRUG - OTHER] PO
== END 2017-05-12 14:26 ==
LOC: PREOP 05:46
PROVIDERS: ATTEND Surgery
DX: Z01.818 Encounter for other preprocedural examination (principal); K57.30 Diverticulosis of large intestine without perforation or abscess without bleeding

== ENCOUNTER 2017-05-16 11:12 | Day surgery (SDC) | payer MEDICARE, MEDICAID ==
[~2017-05-16] VITALS: Ht 157.5 cm; Wt 61.7 kg
[2017-05-16 11:20] VITALS: BP 149/77
[2017-05-16] MEDS ORDERED: NS IV 500 ML 500 ML IV PRN (11:45)
--- NOTE | 2017-05-16 12:38 | History & Physicial ---
History of Present Illness History of Present Illness Reason for visit/HPI to undergo colonoscopy regarding left lower quadrant pain and a history of diverticulitis. Date of Admission Date Seen by Provider: May 16, 2017 Time Seen by Provider: 12:37 I consulted on this patient on 05/16/17 12:36 Attending Physician Rose Gottlieb MD Admitting Physician Fede Verduzco MD Consult Allergies and Home Medications Allergies Coded Allergies: azithromycin (Unverified Allergy, Unknown, RASH, 12/25/13) Home Medications Acetaminophen 500 Mg Tablet, 500 MG PO BID, (Reported) Amlodipine Besylate 10 Mg Tablet, 10 MG PO HS, (Reported) Aspirin 325 Mg Tab, 325 MG PO DAILY, (Reported) Ezetimibe/Simvastatin 1 Each Tablet, 1 TAB PO DAILY, (Reported) Glyburide 5 Mg Tablet, 5 MG PO BIDAC, (Reported) Levothyroxine Sodium 100 Mcg Tablet, 100 MCG PO DAILY, (Reported) Losartan Potassium 100 Mg Tablet, 100 MG PO DAILY, (Reported) Metoprolol Succinate 50 Mg Tab.sr.24h, 50 MG PO DAILY, (Reported) [place]-3 Fatty Acids/Fish Oil 1 Each Capsule, 1,000 MG PO DAILY, (Reported) Vitamin B Complex/Vit C 1 Tab Tablet, 1 TAB PO DAILY, (Reported) Past Fwhdmcp-Wwxfjb-Oshwih Hx Patient Social History Recent Foreign Travel: No Contact w/other who traveled: No Recent Hopitalizations: No Immunizations Up To Date Tetanus Booster (TDap): Unknown Date of Pneumonia Vaccine: Jun 25, 2015 Date of Influenza Vaccine: Jul 04, 2013 Seasonal Allergies Seasonal Allergies: No Surgeries HX Surgeries: Yes (left breast lesion removal, OVARIAN CYST.CABG 5 VESSEL ; CATARACT SURGERY) Surgeries: Breast, Cardiac, CABG, Eye Surgery, Oophorectomy, Open Heart Surgery Respiratory Hx Respiratory Disorders: Yes Cardiovascular Hx Cardiovascular Disorders: Yes (CABG 5 VESSEL) Cardiac Disorders: Coronary Artery Disease, High Cholesterol, Hypertension Neurological Hx Neurological Disorders: No Reproductive System Hx Reproductive Disorders: Yes (ovarian cyst) Female Reproductive Disorders: Ovarian Cyst Genitourinary Hx Genitourinary Disorders: Yes Genitourinary Disorders: Kidney Stones Gastrointestinal Hx Gastrointestinal Disorders: No Musculoskeletal Hx Musculoskeletal Disorders: No Endocrine Hx Endocrine Disorders: Yes Endocrine Disorders: Hypothyroidsim, Diabetes, Non-Insulin dep HEENT HX ENT Disorders: Yes (CATARACT REMOVAL) HEENT Disorders: Cataract Hearing Impairment: Hard of Hearing, Hearing Aide Left, Bilateral Hearing Aide Cancer Hx Cancer: Yes Cancer: Breast Psychosocial Hx Psychiatric Problems: No Integumentary HX Skin/Integumentary Disorder: No Blood Transfusions Hx Blood Disorders: No Adverse Reaction to a Blood Tr: No Constitutional: no symptoms reported EENTM: no symptoms reported Respiratory: no symptoms reported Cardiovascular: no symptoms reported Gastrointestinal: abdominal pain (LLQ) Genitourinary: no symptoms reported Musculoskeletal: no symptoms reported, joint pain Skin: no symptoms reported Psychiatric/Neurological: No Symptoms Reported Physical Exam Vital Signs Capillary Refill : General Appearance: No Apparent Distress HEENT: Normal ENT Inspection Neck: Normal Inspection Cardiovascular: Regular Rate, Rhythm Gastrointestinal: Non Tender Rectal: Deferred Neurologic/Psychiatric: Alert, Oriented x3 Assessment/Plan Assessment and Plan lower quadrant pain. Previous sigmoid diverticulitis; for colonoscopy. Problems: ROSE GOTTLIEB MD May 16, 2017 12:38 pm
--- NOTE | 2017-05-16 12:38 | Conscious Sedation/ASA ---
Conscious Sedation Pre-Proced Time Reviewed: 12:38 ASA Class: 3 Airway Mallampati Classification: (manzanita appropriate class) I. II. III, IV Lungs Heart ASA score ASA 1: a normal healthy patient ASA 2: a patient with a mild systemic disease (mid diabetes, controlled hypertension, obesity ASA 3: a patient with a severe systemic disease that limits activity (angina , COPD, prior Myocardial infarction) ASA 4: a patient with an incapacitating disease that is a constant threat to life (CHF, renal failure) ASA 5: a moribund patient not expected to survive 24 hrs. (ruptured aneurysm) ASA 6: a declared brain patient whose organs are being harvested. For emergent operations, add the letter E after the classification Grade 1 Sedation Plan: Discussed options with patient/fam Note The patient is an appropriate candidate to undergo the planned procedure, sedation, and anesthesia. The patient immediately re-assessed prior to indication. ROSE GOTTLIEB MD May 16, 2017 12:38 pm
[2017-05-16] MEDS ORDERED: SITA100T12 PO (12:50)
[2017-05-16] MEDS ORDERED: MELO15TA39 PO (12:50)
[2017-05-16] MEDS ORDERED: MULT-228 PO (12:50)
[2017-05-16] MEDS ORDERED: SIMV40TA4 PO (12:50)
[2017-05-16] MEDS ORDERED: MV-M1TAB20 PO (12:50)
[2017-05-16] MEDS ORDERED: CALC-823 PO (12:50)
[2017-05-16] MEDS ORDERED: SENN-140 PO (12:50)
[2017-05-16] MEDS ORDERED: EST30C VG (12:52)
[2017-05-16] MEDS ORDERED: GLIP5TAB13 PO (12:53)
[2017-05-16] MEDS ORDERED: [UNRECOGNIZED DRUG - OTHER] PO (12:57)
[2017-05-16] MEDS ORDERED: fentaNYL INJECTION 100 MCG/2 ML AMP ONE (12:58)
[2017-05-16] MEDS ORDERED: MIDAZOLAM 2 MG/2 ML (VERSED) VIAL ONE ×2 (12:59)
[2017-05-16] MEDS: fentaNYL INJECTION 100 MCG/2 ML AMP IVP PRN ×2 (13:05→13:09)
[2017-05-16] MEDS: MIDAZOLAM 2 MG/2 ML (VERSED) VIAL IVP PRN ×2 (13:07→13:10)
--- NOTE | 2017-05-16 13:27 | Endo Procedure Record ---
Endo Procedure Report Date of Procedure May 16, 2017 Surgeon (s) ROSE GOTTLIEB MD Post Procedure/Op Diagnosis diffuse diverticulosis Procedure Performed colonoscopy to cecum Description of Procedure Anesthesia Type: Conscious Sedation Specimen(s) collected/removed none Description of the Procedure Indication for procedure: This lady was found to have clinical symptoms of sigmoid diverticulitis and treated accordingly. In addition, she has a personal history of colon polyps as well. It was therefore felt reasonable to perform colonoscopy. Informed consent was obtained after reviewing the procedure in detail. Description of procedure: She was placed in left lateral decubitus position and her vital signs were monitored. Conscious sedation was achieved using Versed and fentanyl. Digital rectal examination confirmed and lax anal sphincter. The colonoscope was then introduced in the rectum and advanced to the cecum The quality of bowel preparation was excellent. The scope was then withdrawn slowly and the mucosa examined in a systematic fashion Findings:Sigmoid diverticulosis without any acute inflammation No recurrent polyps were found She tolerated the procedure well and was taken back to the nursing area in a stable condition. Impression: Resolving sigmoid diverticulitis. No recurrent polyps. Copies To: CRISSY CARR MD Copies To: TAMMY SUGGS MD, XAVIER M MD May 16, 2017 1:27 pm
--- NOTE | 2017-05-16 13:28 | Discharge Inst-Simple/Standard ---
Discharge Inst-Standard Discharge Medications New, Converted or Re-Newed RX: Other Patient Instructions/Follow Up Plan of Care/Instructions/FU: follow-up with her primary as needed Activity as Tolerated: Yes Discharge Diet: No Restrictions ROSE GOTTLIEB MD May 16, 2017 1:28 pm
[2017-05-16 14:00] VITALS: BP 155/70
[2017-05-16 14:50] VITALS: BP 161/81
[2017-05-16 14:52] VITALS: BP 161/81
== END 2017-05-16 14:52 | disposition home or self-care (01) ==
LOC: ENDO 11:12
PROVIDERS: ATTEND Surgery
DX: K57.30 Diverticulosis of large intestine without perforation or abscess without bleeding (principal); Z86.010 Personal history of colon polyps; I25.10 Atherosclerotic heart disease of native coronary artery without angina pectoris; I10 Essential (primary) hypertension; E78.00 Pure hypercholesterolemia, unspecified; E03.9 Hypothyroidism, unspecified; E11.9 Type 2 diabetes mellitus without complications; Z95.1 Presence of aortocoronary bypass graft; Z79.4 Long term (current) use of insulin; Z79.899 Other long term (current) drug therapy

== ENCOUNTER 2017-05-30 13:44 | Outpatient (RCR) | payer MEDICARE, MEDICAID ==
[2017-05-04 14:25] LABS: BASOPHILS # (AUTO) 0.1 10^3/uL (0.0-0.1); BASOPHILS % (AUTO) 1 % (0-10); EOSINOPHILS # (AUTO) 0.3 10^3/uL (0.0-0.3); EOSINOPHILS % (AUTO) 3 % (0-10); LYMPHOCYTES # (AUTO) 1.5 X 10^3 (1.0-4.0); LYMPHOCYTES % (AUTO) 16 % (12-44); MEAN CORPUSCULAR HEMOGLOBIN 31 PG (25-34); MEAN CORPUSCULAR HGB CONC 33 G/DL (32-36); MEAN CORPUSCULAR VOLUME 93 FL (80-99); MONOCYTES % (AUTO) 11 % (0-12); NEUTROPHILS # (AUTO) 6.1 X 10^3 (1.8-7.8); NEUTROPHILS % (AUTO) 69 % (42-75); PLATELET COUNT 244 10^3/uL (130-400); RED BLOOD COUNT 3.98 10^6/uL (4.35-5.85); RED CELL DISTRIBUTION WIDTH 14.2 % (10.0-14.5); WHITE BLOOD COUNT 8.9 10^3/uL (4.3-11.0)
[2017-05-04 14:56] LABS: ALANINE AMINOTRANSFERASE 14 U/L (0-55); ALBUMIN 3.8 GM/DL (3.2-4.5); ANION GAP 9 MMOL/L (5-14); ASPARTATE AMINO TRANSFERASE 14 U/L (5-34); BILIRUBIN,TOTAL 0.4 MG/DL (0.1-1.0); BLOOD UREA NITROGEN 18 MG/DL (7-18); BUN/CREATININE RATIO 25; CARBON DIOXIDE 23 MMOL/L (21-32); CHLORIDE 106 MMOL/L (98-107); CREATININE SERUM 0.72 MG/DL (0.60-1.30); GFR ESTIMATED > 60; GLUCOSE 169 MG/DL (70-105); SODIUM 138 MMOL/L (135-145); TOTAL PROTEIN 6.5 GM/DL (6.4-8.2)
[~2017-05-30 13:44] MED LIST changes: +CALC-823 PO; +DENOSUMAB 60 MG/1 ML (PROLIA) CANCER CTR SQ SCH; +EST30C VG; +GLIP5TAB13 PO; +MELO15TA39 PO; +MULT-228 PO; +MV-M1TAB20 PO; +SENN-140 PO; +SIMV40TA4 PO; +SITA100T12 PO; +[UNRECOGNIZED DRUG - OTHER] PO
[2017-05-30 14:07] LABS: BASOPHILS # (AUTO) 0.1 10^3/uL (0.0-0.1); BASOPHILS % (AUTO) 1 % (0-10); EOSINOPHILS # (AUTO) 0.3 10^3/uL (0.0-0.3); EOSINOPHILS % (AUTO) 5 % (0-10); LYMPHOCYTES # (AUTO) 1.6 X 10^3 (1.0-4.0); LYMPHOCYTES % (AUTO) 22 % (12-44); MEAN CORPUSCULAR HEMOGLOBIN 31 PG (25-34); MEAN CORPUSCULAR HGB CONC 32 G/DL (32-36); MEAN CORPUSCULAR VOLUME 95 FL (80-99); MEAN PLATELET VOLUME 10.5 FL (7.4-10.4); MONOCYTES # (AUTO) 0.8 X 10^3 (0.0-1.0); MONOCYTES % (AUTO) 11 % (0-12); NEUTROPHILS # (AUTO) 4.5 X 10^3 (1.8-7.8); NEUTROPHILS % (AUTO) 61 % (42-75); PLATELET COUNT 210 10^3/uL (130-400); RED BLOOD COUNT 3.77 10^6/uL (4.35-5.85); RED CELL DISTRIBUTION WIDTH 14.2 % (10.0-14.5); WHITE BLOOD COUNT 7.3 10^3/uL (4.3-11.0)
[2017-05-30 14:34] LABS: ERYTHROCYTE SEDIMENTATION RATE 11 MM/HR (0-30)
== END 2017-07-02 | disposition home or self-care (01) ==
LOC: ONC 13:44
PROVIDERS: ATTEND Internal Medicine Hematology & Oncology
DX: C50.411 Malignant neoplasm of upper-outer quadrant of right female breast; I25.10 Atherosclerotic heart disease of native coronary artery without angina pectoris; R10.32 Left lower quadrant pain; K21.9 Gastro-esophageal reflux disease without esophagitis; Z79.811 Long term (current) use of aromatase inhibitors; I10 Essential (primary) hypertension; E03.9 Hypothyroidism, unspecified; Z17.0 Estrogen receptor positive status [ER+]; E78.5 Hyperlipidemia, unspecified; M48.06 Spinal stenosis, lumbar region; M81.0 Age-related osteoporosis without current pathological fracture; M47.892 Other spondylosis, cervical region; M54.5 Low back pain; E11.9 Type 2 diabetes mellitus without complications; Z79.899 Other long term (current) drug therapy
CPT/HCPCS: 36415; 80053; 82378; 85025; 85652; 86300; 96372; 99213

== ENCOUNTER 2017-09-15 12:50 | Inpatient (IN) | payer MEDICARE, MEDICAID ==
[~2017-09-15] VITALS: Ht 157.5 cm; Wt 61.7 kg
[~2017-09-15 12:50] MED LIST changes: -DENOSUMAB 60 MG/1 ML (PROLIA) CANCER CTR SQ SCH
--- NOTE | 2017-09-15 13:08 | ED Fall/Injury ---
General Stated Complaint: FALL Source: patient, EMS Exam Limitations: no limitations History of Present Illness Time seen by provider: 13:06 Initial Comments To ER per EMS from home with reports of a fall and right hip pain. 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 She subsequently fell landing on her right side. She did not strike her head and denies any neck pain. She laid on the floor for about an hour before she could get her medical alert bracelet to work. EMS was summoned and transported patient to the emergency room. Primary care is Dr. Carr. Occurred: just prior to arrival Severity: moderate Injuries/Pain Location: lower extremity Loss of Consciousness: no loss of consciousness Allergies and Home Medications Allergies Coded Allergies: atorvastatin (Unverified Allergy, Unknown, 05/16/17) azithromycin (Unverified Allergy, Unknown, RASH, 12/25/13) Home Medications Amlodipine Besylate 10 Mg Tablet, 10 MG PO HS, (Reported) Aspirin 325 Mg Tab, 325 MG PO DAILY, (Reported) Calcium Carbonate 500 Mg Tablet, 500 MG PO DAILY, #1 Prescribed by: GHAZAL STRICKLAND on 05/16/17 1250 Estrogens Conjugated 30 Gm Cr, 30 GM VG UD, #1 FREQUENCY: TWICE WEEKLY Prescribed by: GHAZAL STRICKLAND on 05/16/17 1252 Glipizide 5 Mg Tablet, 5 MG PO BID, #1 Prescribed by: GHAZAL STRICKLAND on 05/16/17 1253 Levothyroxine Sodium 100 Mcg Tablet, 100 MCG PO DAILY, (Reported) Losartan Potassium 100 Mg Tablet, 100 MG PO DAILY, (Reported) Meloxicam 15 Mg Tablet, 15 MG PO DAILY, #1 Prescribed by: GHAZAL STRICKLAND on 05/16/17 1250 Metoprolol Succinate 50 Mg Tab.sr.24h, 50 MG PO DAILY, (Reported) Multivitamin 1 Each Tab.chew, 1 EACH PO DAILY, #1 Prescribed by: GHAZAL STRICKLAND on 05/16/17 1250 Mv-Mn/Iron/FA/Herbal Cmplx#190 1 Each Tablet, 1 EACH PO DAILY, #1 Prescribed by: GHAZAL STRICKLAND on 05/16/17 1250 [place]-3 Fatty Acids/Fish Oil 1 Each Capsule, 1,000 MG PO DAILY, (Reported) Sennosides 8.6 Mg Tablet, 8.6 MG PO DAILY, #1 Prescribed by: GHAZAL STRICKLAND on 05/16/17 1250 Simvastatin 40 Mg Tablet, 40 MG PO DAILY, #1 Prescribed by: GHAZAL STRICKLAND on 05/16/17 1250 Sitagliptin Phosphate 100 Mg Tablet, 100 MG PO DAILY, #1 Prescribed by: GHAZAL STRICKLAND on 05/16/17 1250 [Trovan] , PO DAILY Prescribed by: GHAZAL STRICKLAND on 05/16/17 1257 Constitutional: see HPI Eyes: No Symptoms Reported Ears, Nose, Mouth, Throat: no symptoms reported Respiratory: no symptoms reported Cardiovascular: no symptoms reported Genitourinary: no symptoms reported Musculoskeletal: see HPI Skin: no symptoms reported Psychiatric/Neurological: No Symptoms Reported Past Kenytct-Hlguct-Kxgooc Hx Patient Social History Recent Hopitalizations: No Immunizations Up To Date Tetanus Booster (TDap): Unknown Date of Pneumonia Vaccine: Jun 25, 2015 Date of Influenza Vaccine: Jul 04, 2013 Seasonal Allergies Seasonal Allergies: No Surgeries Surgeries: Breast, Cardiac, CABG, Eye Surgery, Oophorectomy, Open Heart Surgery Respiratory Respiratory Disorders: Pneumonia Cardiovascular Cardiac Disorders: Coronary Artery Disease, High Cholesterol, Hypertension Reproductive System Hx Reproductive Disorders: Yes (ovarian cyst) Female Reproductive Disorders: Ovarian Cyst 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 Genitourinary Genitourinary Disorders: Kidney Stones Endocrine Endocrine Disorders: Hypothyroidsim, Diabetes, Non-Insulin dep HEENT HEENT Disorders: Cataract Hearing Impairment: Hard of Hearing, Hearing Aide Left, Bilateral Hearing Aide Cancer Cancer: Breast Blood Transfusions Adverse Reaction to a Blood Tr: No Physical Exam Vital Signs Vital Sign - Last 12Hours 09/15/17 13:20 Temp 97.1 Pulse 61 Resp 12 B/P (MAP) 219/89 (132) Pulse Ox 94 O2 Delivery Room Air Capillary Refill : General Appearance: no apparent distress HEENT: PERRL/EOMI, normal ENT inspection Neck: non-tender, full range of motion Cardiovascular: regular rate, rhythm, no murmur, other (healed sternotomy incision scar) Respiratory: normal breath sounds, no respiratory distress, no accessory muscle use Gastrointestinal: normal bowel sounds, non tender Extremities: normal range of motion, non-tender, other (there is deformity to the right proximal femur; healed scar to the medial aspect of the left lower leg assumed to be from from saphenous vein harvesting for CABG) Neurologic/Psychiatric: alert, normal mood/affect, oriented x 3 Skin: normal color, warm/dry [place] Coma Score Best Eye Response: (4) Open Spontaneously Best Verbal Response: (5) Oriented Best Motor Response: (6) Obeys Commands Coleman Total: 15 Progress/Results/Core Measures Results/Orders Lab Results Laboratory Tests Test 09/15/17 13:00 09/15/17 13:25 Range/Units White Blood Count 8.3 4.3-11.0 10^3/uL Red Blood Count 4.10 L 4.35-5.85 10^6/uL Hemoglobin 12.6 11.5-16.0 G/DL Hematocrit 38 35-52 % Mean Corpuscular Volume 92 80-99 FL Mean Corpuscular Hemoglobin 31 25-34 PG Mean Corpuscular Hemoglobin Concent 33 32-36 G/DL Red Cell Distribution Width 13.9 10.0-14.5 % Platelet Count 175 130-400 10^3/uL Mean Platelet Volume 10.7 H 7.4-10.4 FL Neutrophils (%) (Auto) 64 42-75 % Lymphocytes (%) (Auto) 22 12-44 % Monocytes (%) (Auto) 10 0-12 % Eosinophils (%) (Auto) 3 0-10 % Basophils (%) (Auto) 1 0-10 % Neutrophils # (Auto) 5.3 1.8-7.8 X 10^3 Lymphocytes # (Auto) 1.8 1.0-4.0 X 10^3 Monocytes # (Auto) 0.8 0.0-1.0 X 10^3 Eosinophils # (Auto) 0.3 0.0-0.3 10^3/uL Basophils # (Auto) 0.1 0.0-0.1 10^3/uL Urine Color YELLOW Urine Clarity CLEAR Urine pH 7 5-9 Urine Specific [place] 1.015 L 1.016-1.022 Urine Protein 1+ H NEGATIVE Urine Glucose (UA) NEGATIVE NEGATIVE Urine Ketones 1+ H NEGATIVE Urine Nitrite NEGATIVE NEGATIVE Urine Bilirubin NEGATIVE NEGATIVE Urine Urobilinogen NORMAL NORMAL MG/DL Urine Leukocyte Esterase NEGATIVE NEGATIVE Urine RBC (Auto) NEGATIVE NEGATIVE Urine RBC NONE /HPF Urine WBC 0-2 /HPF Urine Crystals NONE /LPF Urine Bacteria NEGATIVE /HPF Urine Casts PRESENT /LPF Urine Hyaline Casts RARE /LPF Urine Mucus SMALL H /LPF Urine Culture Indicated NO Sodium Level 138 135-145 MMOL/L Potassium Level 4.1 3.6-5.0 MMOL/L Chloride Level 105 98-107 MMOL/L Carbon Dioxide Level 22 21-32 MMOL/L Anion Gap 11 5-14 MMOL/L Blood Urea Nitrogen 22 H 7-18 MG/DL Creatinine 0.72 0.60-1.30 MG/DL Estimat Glomerular Filtration Rate > 60 BUN/Creatinine Ratio 31 Glucose Level 153 H 70-105 MG/DL Calcium Level 9.8 8.5-10.1 MG/DL Total Bilirubin 0.5 0.1-1.0 MG/DL Aspartate Amino Transf (AST/SGOT) 18 5-34 U/L Alanine Aminotransferase (ALT/SGPT) 13 0-55 U/L Alkaline Phosphatase 45 40-136 U/L Total Protein 6.6 6.4-8.2 GM/DL Albumin 3.9 3.2-4.5 GM/DL Prothrombin Time 14.0 12.2-14.7 SEC INR Comment 1.1 0.8-1.4 Activated Partial Thromboplast Time 26 24-35 SEC My Orders Orders - SKYLAR YO APRN Chest 1 View, Ap/Pa Only (09/15/17 13:04) Ekg Tracing (09/15/17 13:04) Cbc With Automated Diff (09/15/17 13:04) Comprehensive Metabolic Panel (09/15/17 13:04) Ua Culture If Indicated (09/15/17 13:04) Saline Lock/Iv-Start (09/15/17 13:04) Catheter(Urinary) To Dependent (09/15/17 13:04) Protime With Inr (09/15/17 13:04) Partial Thromboplastin Time (09/15/17 13:04) Fentanyl Injection (Sublimaze Injection (09/15/17 13:15) Fentanyl Injection (Sublimaze Injection (09/15/17 13:15) O2 (09/15/17 13:26) Pelvis With Right Hip 2-3views (09/15/17 13:34) Medications Given in ED Current Medications Medications Dose Ordered Sig/Hayder Route Start Time Stop Time Status Last Admin Dose Admin Fentanyl Citrate 25 mcg ONCE PRN IVP 09/15/17 13:15 09/15/17 13:15 25 MCG Vital Signs/I&O Vital Sign - Last 12Hours 09/15/17 13:20 Temp 97.1 Pulse 61 Resp 12 B/P (MAP) 219/89 (132) Pulse Ox 94 O2 Delivery Room Air Diagnostic Imaging Diagonstic Imaging: Xray Comments NAME: S[facility] REC#: [id number] PT STATUS: REG ER : 1925 PHYSICIAN: SKYLAR YO APRN ADMIT DATE: 09/15/17/ER Draft Date of Exam:09/15/17 PELVIS WITH RIGHT HIP 2-3VIEWS AP view of the pelvis and 2 views of the right hip. INDICATION: Fall. FINDINGS: There is a comminuted displaced right intertrochanteric fracture. The hip joints demonstrate moderate degenerative changes. Degenerative changes are also noted of the SI joints. No radiopaque foreign body. IMPRESSION: Displaced mildly comminuted right intertrochanteric fracture. Dictated on workstation # [id number] Dict: 09/15/17 1342 Trans: 09/15/17 1344 [id number] Interpreted by: PARISH CHILDS MD Electronically signed by: Departure Communication (Admissions) Time/Spoke to Admitting Phy: 14:[address] Rebollar from orthopedics. Given the multitude of comorbidities including hypertension, breast cancer with lumpectomy, coronary artery disease, CABG, hypertension tablets and seen in the cecum on PET CT in April of this year, we will admit to medicine Dr. Browning and he will consult. I discussed with Dr. Browning, she would like to have Dr. Hood on board from cardiology and she agrees to admit. Impression Impression: Primary Impression: Closed right hip fracture Disposition: ADMITTED INPATIENT Condition: Stable Admissions Decision to Admit Reason: Admit from ER (General) Decision to Admit/Date: Sep 15, 2017 Time/Decision to Admit Time: 13:08 Departure-Patient Inst. Referrals: CRISSY CARR MD (PCP/Family) Primary Care Physician SKYLAR YO APRN Sep 15, 2017 13:08
[2017-09-15 13:12] LABS: BASOPHILS # (AUTO) 0.1 10^3/uL (0.0-0.1); BASOPHILS % (AUTO) 1 % (0-10); BILIRUBIN,URINE NEGATIVE (NEGATIVE); EOSINOPHILS # (AUTO) 0.3 10^3/uL (0.0-0.3); EOSINOPHILS % (AUTO) 3 % (0-10); KETONES,URINE 1+ (NEGATIVE); LEUKOCYTE ESTERASE ,URINE NEGATIVE (NEGATIVE); LYMPHOCYTES # (AUTO) 1.8 X 10^3 (1.0-4.0); LYMPHOCYTES % (AUTO) 22 % (12-44); MEAN CORPUSCULAR HEMOGLOBIN 31 PG (25-34); MEAN CORPUSCULAR HGB CONC 33 G/DL (32-36); MEAN CORPUSCULAR VOLUME 92 FL (80-99); MEAN PLATELET VOLUME 10.7 FL (7.4-10.4); MONOCYTES # (AUTO) 0.8 X 10^3 (0.0-1.0); MONOCYTES % (AUTO) 10 % (0-12); NEUTROPHILS # (AUTO) 5.3 X 10^3 (1.8-7.8); NEUTROPHILS % (AUTO) 64 % (42-75); NITRITE,URINE NEGATIVE (NEGATIVE); PH,URINE 7 (5-9); PLATELET COUNT 175 10^3/uL (130-400); PROTEIN,URINE 1+ (NEGATIVE); RED CELL DISTRIBUTION WIDTH 13.9 % (10.0-14.5); UROBILINOGEN,URINE NORMAL (NORMAL); WHITE BLOOD COUNT 8.3 10^3/uL (4.3-11.0)
[2017-09-15] MEDS ORDERED: fentaNYL INJECTION 100 MCG/2 ML AMP IVP PRN ×2 (13:15)
[2017-09-15 13:21] LABS: HYALINE CASTS, URINE RARE /LPF; WBC,URINE 0-2 /HPF
[2017-09-15 13:30] LABS: ALANINE AMINOTRANSFERASE 13 U/L (0-55); ALBUMIN 3.9 GM/DL (3.2-4.5); ANION GAP 11 MMOL/L (5-14); ASPARTATE AMINO TRANSFERASE 18 U/L (5-34); BILIRUBIN,TOTAL 0.5 MG/DL (0.1-1.0); BLOOD UREA NITROGEN 22 MG/DL (7-18); BUN/CREATININE RATIO 31; CALCIUM 9.8 MG/DL (8.5-10.1); CARBON DIOXIDE 22 MMOL/L (21-32); CHLORIDE 105 MMOL/L (98-107); CREATININE SERUM 0.72 MG/DL (0.60-1.30); GFR ESTIMATED > 60; GLUCOSE 153 MG/DL (70-105); POTASSIUM 4.1 MMOL/L (3.6-5.0); SODIUM 138 MMOL/L (135-145); TOTAL PROTEIN 6.6 GM/DL (6.4-8.2)
[2017-09-15 13:44] LABS: INR 1.1 (0.8-1.4)
--- NOTE | 2017-09-15 13:45 | Diagnostic Imaging Report ---
AP view of the pelvis and 2 views of the right hip. INDICATION: Fall. FINDINGS: There is a comminuted displaced right intertrochanteric fracture. The hip joints demonstrate moderate degenerative changes. Degenerative changes are also noted of the SI joints. No radiopaque foreign body. IMPRESSION: Displaced mildly comminuted right intertrochanteric fracture. Dictated by: Dictated on workstation # [id number]
--- NOTE | 2017-09-15 13:49 | Diagnostic Imaging Report ---
Supine AP view of the chest. INDICATION: Fall. FINDINGS: There is marked enlargement of the heart. There is chronic-appearing interstitial thickening. No focal infiltrate. No effusion or pneumothorax is evident on this supine radiograph. The mediastinum demonstrates post CABG changes and sternotomy wires. There are also post-kyphoplasty changes at T11 and T12 levels. IMPRESSION: Cardiomegaly. Chronic-appearing interstitial thickening. Dictated by: Dictated on workstation # [id number]
--- OUTSIDE RECORDS SUMMARY | 2017-09-15 14:14 | XMS REPORT | Continuity of Care Document ---
Author Author [facility] Organization [facility] Address Unknown Phone Unavailable Allergies Active Description Code Type Severity Reaction Onset Reported/Identified Relationship to Patient Clinical Status Yes azithromycin [id number] Drug Allergy Unknown RASH 12/25/2013 Yes atorvastatin [id number] Drug Allergy Unknown N/A 05/16/2017 Medications There is no data. Problems Date Dx Coded Attending Type Code [...] COMPL, TYPE II OR UNSPEC TY 12/27/2013 KATIE BUI, JUANIS Dawson Ot 272.4 HYPERLIPIDEMIA NEC/NOS 12/27/2013 JUANIS WILSON MD Ot 401.9 HYPERTENSION NOS 12/27/2013 KATIE BUI, JUANIS Dawson Ot 414.00 CORON ATHEROSCLER NOS TYPE VESSEL, NATIV 12/27/2013 KATIE BUI, JUANIS Dawson Ot V16.0 FAMILY HX-GI MALIGNANCY 12/27/2013 JUANIS WILSON MD Ot V16.3 FAMILY HX-BREAST MALIG 03/18/2014 VIANNEY AGUSTIN MD Ot 174.9 MALIGN NEOPL BREAST NOS 03/18/2014 VIANNEY AGUSTIN MD Ot 244.9 HYPOTHYROIDISM NOS 03/18/2014 VIANNEY AGUSTIN MD Ot 250.00 DIAB ALETHEA WO COMPL, TYPE II OR UNSPEC TY 03/18/2014 IVANNEY AGUSTIN MD Ot 272.4 HYPERLIPIDEMIA NEC/NOS 03/18/2014 VIANNEY AGUSTIN MD Ot 401.9 HYPERTENSION NOS 03/18/2014 VAMSI BUI, VIANNEY Hayward Ot 414.01 CORONARY ATHEROSCLEROSIS OF [place] CORON 09/17/2014 VIANNEY AGUSTIN MD Ot 174.9 MALIGN NEOPL BREAST NOS 09/17/2014 VAMSI BUI, VIANNEY Hayward Ot 244.9 HYPOTHYROIDISM NOS 09/17/2014 VAMSI BUI, VIANNEY Hayward Ot 250.00 DIAB ALETHEA WO COMPL, TYPE II OR UNSPEC TY 09/17/2014 VAMSI BUI, VIANNEY Hayward Ot 272.4 HYPERLIPIDEMIA NEC/NOS 09/17/2014 VAMSI BUI, VIANNEY Hayward Ot 401.9 HYPERTENSION NOS 09/17/2014 VAMSI BUI, VIANNEY Hayward Ot 414.01 CORONARY ATHEROSCLEROSIS OF [place] CORON 10/10/2014 VAMSI BUI, VIANNEY Hayward Ot 174.9 10/10/2014 VAMSI BUI, VIANNEY Hayward Ot 244.9 10/10/2014 VAMSI BUI, VIANNEY Hayward Ot 250.00 10/10/2014 VAMSI BUI, VIANNEY Hayward Ot 272.4 10/10/2014 VAMSI BUI, VIANNEY Hayward Ot 401.9 10/10/2014 VAMSI BUI, VIANNEY Hayward Ot 414.01 10/10/2014 VAMSI BUI, VIANNEY Hayward Ot 174.9 10/10/2014 VAMSI BUI, VIANNEY Hayward Ot 244.9 10/10/2014 VAMSI BUI, VIANNEY Yesy Ot 250.00 10/10/2014 VAMSI BUI, VIANNEY Hayward Ot 272.4 10/10/2014 VAMSI BUI, VIANNEY Hayward Ot 401.9 10/10/2014 VAMSI BUI, VIANNEY Hayward Ot 414.01 10/16/2014 VAMSI BUI, VIANNEY Hayward Ot 174.9 10/16/2014 VAMSI BUI, VIANNEY Hayward Ot 244.9 10/16/2014 VAMSI BUI, VIANNEY Hayward Ot 250.00 10/16/2014 VAMSI BUI, VIANNEY Hayward Ot 272.4 10/16/2014 VAMSI BUI, VIANNEY Hayward Ot 401.9 10/16/2014 VAMSI BUI, VIANNEY K Ot 414.01 10/17/2014 VAMSI BUI, VIANNEY K Ot 174.9 10/17/2014 VAMSI BUI, VIANNEY Hayward Ot 244.9 10/17/2014 VAMSI BUI, VIANNEY K Ot 250.00 10/17/2014 VAMSI BUI, VIANNEY Hayward Ot 272.4 10/17/2014 VAMSI BUI, VIANNEY Hayward Ot 401.9 10/17/2014 VAMSI BUI, VIANNEY Hayward Ot 414.01 11/28/2014 VAMSI BUI, VIANNEY Hayward Ot 174.9 11/28/2014 VAMSI BUI, VIANNEY Hayward Ot 244.9 11/28/2014 VAMSI BUI, VIANNEY Hayward Ot 250.00 11/28/2014 VAMSI BUI, VIANNEY Hayward Ot 272.4 11/28/2014 VAMSI BUI, VIANNEY Hayward Ot 401.9 11/28/2014 VAMSI BUI, VIANNEY Hayward Ot 414.01 11/28/2014 [...] Ot 174.9 MALIGN NEOPL BREAST NOS 01/14/2015 AVMSI BUI, VIANNEY Hayward Ot 244.9 HYPOTHYROIDISM NOS 01/14/2015 VAMSI BUI, VIANNEY Hayward Ot 250.00 DIAB ALETHEA WO COMPL, TYPE II OR UNSPEC TY 01/14/2015 VAMSI BUI, VIANNEY Hayward Ot 272.4 HYPERLIPIDEMIA NEC/NOS 01/14/2015 VAMSI BUI, VIANNEY Hayward Ot 401.9 HYPERTENSION NOS 01/14/2015 VAMSI BUI, VIANNEY Hayward Ot 414.01 CORONARY ATHEROSCLEROSIS OF [place] CORON 01/15/2015 VAMSI BUI, VIANNEY Hayward Ot [...] COMPL, TYPE II OR UNSPEC TY 04/16/2015 VAMSI BUI, VIANNEY Hayward Ot 272.4 HYPERLIPIDEMIA NEC/NOS 04/16/2015 VAMSI BUI, VIANNEY Hayward Ot 401.9 HYPERTENSION NOS 04/16/2015 VAMSI BUI, VIANNEY Hayward Ot 414.01 CORONARY ATHEROSCLEROSIS OF [place] CORON 05/08/2015 VAMSI BUI, VIANNEY Hayward Ot [...] VAMSI BUI, VIANNEY Hayward Ot 250.00 05/21/2015 AVMSI BUI, VIANNEY Hayward Ot 272.4 05/21/2015 VAMSI BUI, VIANNEY Hayward Ot 401.9 05/21/2015 VAMSI BUI, VIANNEY Haywadr Ot 414.01 06/24/2015 VAMSI BUI, VIANNEY Hayward [...] VIANNEY Hayward Ot 414.01 CORONARY ATHEROSCLEROSIS OF [place] CORON 07/02/2015 VAMSI BUI, VIANNEY Hayward Ot 174.9 07/02/2015 VAMSI BUI, VIANNEY Hayward Ot 244.9 07/02/2015 VAMSI BUI, VIANNEY Hayward Ot 250.00 07/02/2015 VAMSI BUI, VIANNEY Hayward Ot 272.4 07/02/2015 VAMSI BUI, VIANNEY Hayward Ot 401.9 07/02/2015 VAMSI BUI, VIANNEY Hayward Ot 414.01 08/07/2015 Ot C50.911 08/07/2015 Ot Z12.31 09/30/2015 VAMSI BUI, VIANNEY Hayward Ot C50.911 09/30/2015 VAMSI BUI, VIANNEY Hayward Ot E03.9 09/30/2015 VAMSI BUI, VIANNEY Hayward Ot E11.9 09/30/2015 VAMSI BUI, VIANNEY Hayward Ot E78.5 09/30/2015 VAMSI BUI, VIANNEY Hayward [...] BUI, VIANNEY Hayward Ot Z79.899 11/12/2015 VAMSI BIU, VIANNEY Hayward Ot 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 11/12/2015 VAMSI BUI, VIANNEY Hayward Ot E03.9 HYPOTHYROIDISM, UNSPECIFIED 11/12/2015 VAMSI BUI, VIANNEY Hayward Ot E11.9 TYPE 2 DIABETES MELLITUS WITHOUT COMPLIC 11/12/2015 VAMSI BUI, VIANNEY Hayward Ot E78.5 HYPERLIPIDEMIA, UNSPECIFIED 11/12/2015 VAMSI BUI, VIANNEY Hayward Ot I10 ESSENTIAL (PRIMARY) HYPERTENSION 11/12/2015 VAMSI BUI, VIANNEY Hayward Ot I25.10 ATHSCL HEART DISEASE OF [place] CORONARY 11/12/2015 VAMSI BUI, VIANNEY Hayward Ot 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+] 11/12/2015 VAMSI BUI, VIANNEY Hayward Ot Z79.899 OTHER RETIREMENT (CURRENT) DRUG THERAPY 01/29/2016 VIANNEY AGUSTIN MD Ot 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 01/29/2016 VIANNEY AGUSTIN MD Ot E03.9 HYPOTHYROIDISM, UNSPECIFIED 01/29/2016 VIANNEY AGUSTIN MD Ot E11.9 TYPE 2 DIABETES MELLITUS WITHOUT COMPLIC 01/29/2016 VIANNEY AGUSTIN MD Ot E78.5 HYPERLIPIDEMIA, UNSPECIFIED 01/29/2016 VIANNEY AGUSTIN MD Ot I10 ESSENTIAL (PRIMARY) HYPERTENSION 01/29/2016 VIANNEY AGUSTIN MD Ot I25.10 ATHSCL HEART DISEASE OF [place] CORONARY 01/29/2016 VIANNEY AGUSTIN MD Ot 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+] 01/29/2016 VIANNEY AGUSTIN MD Ot 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 02/06/2016 VIANNEY AGUSTIN MD, Ot 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 02/06/2016 VIANNEY AGUSTIN MD Ot E03.9 HYPOTHYROIDISM, UNSPECIFIED 02/06/2016 VIANNEY AGUSTIN MD Ot E11.9 TYPE 2 DIABETES MELLITUS WITHOUT COMPLIC 02/06/2016 VIANNEY AGUSTIN MD Ot E78.5 HYPERLIPIDEMIA, UNSPECIFIED 02/06/2016 VIANNEY AGUSTIN MD Ot I10 ESSENTIAL (PRIMARY) HYPERTENSION 02/06/2016 VIANNEY AGUSTIN MD Ot I25.10 ATHSCL HEART DISEASE OF [place] CORONARY 02/06/2016 VIANNEY AGUSTIN MD Ot 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+] 02/06/2016 VIANNEY AGUSTIN MD Ot 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 03/25/2016 VIANNEY AGUSTIN MD, Ot 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 03/25/2016 VIANNEY AGUSTIN MD Ot E03.9 HYPOTHYROIDISM, UNSPECIFIED 03/25/2016 VIANNEY AGUSTIN MD Ot E11.9 TYPE 2 DIABETES MELLITUS WITHOUT COMPLIC 03/25/2016 VIANNEY AGUSTIN MD Ot E78.5 HYPERLIPIDEMIA, UNSPECIFIED 03/25/2016 VIANNEY AGUSTIN MD Ot I10 ESSENTIAL (PRIMARY) HYPERTENSION 03/25/2016 VIANNEY AGUSTIN MD Ot I25.10 ATHSCL HEART DISEASE OF [place] CORONARY 03/25/2016 VIANNEY AGUSTIN MD Ot 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+] 03/25/2016 VIANNEY AGUSTIN MD, Ot Z79.899 OTHER RETIREMENT (CURRENT) DRUG THERAPY 04/08/2016 VIANNEY AGUSTIN MD, Ot 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 04/08/2016 VIANNEY AGUSTIN MD Ot E03.9 HYPOTHYROIDISM, UNSPECIFIED 04/08/2016 VIANNEY AGUSTIN MD Ot E11.9 TYPE 2 DIABETES MELLITUS WITHOUT COMPLIC 04/08/2016 VIANNEY AGUSTIN MD Ot E78.5 HYPERLIPIDEMIA, UNSPECIFIED 04/08/2016 VIANNEY AGUSTIN MD Ot I10 ESSENTIAL (PRIMARY) HYPERTENSION 04/08/2016 VIANNEY AGUSTIN MD Ot I25.10 ATHSCL HEART DISEASE OF [place] CORONARY 04/08/2016 VIANNEY AGUSTIN MD, Ot 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+] 04/08/2016 VIANNEY AGUSTIN MD, Ot 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 05/05/2016 VIANNEY AGUSTIN MD, Ot 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 05/05/2016 VIANNEY AGUSTIN MD, Ot E03.9 HYPOTHYROIDISM, UNSPECIFIED 05/05/2016 VIANNEY AGUSTIN MD Ot E11.9 TYPE 2 DIABETES MELLITUS WITHOUT COMPLIC 05/05/2016 VIANNEY AGUSTIN MD Ot E78.5 HYPERLIPIDEMIA, UNSPECIFIED 05/05/2016 VIANNEY AGUSTIN MD Ot I10 ESSENTIAL (PRIMARY) HYPERTENSION 05/05/2016 VIANNEY AGUSTIN MD Ot I25.10 ATHSCL HEART DISEASE OF [place] CORONARY 05/05/2016 VIANNEY AGUSTIN MD Ot 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+] 05/05/2016 VIANNEY AGUSTIN MD, Ot 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 05/07/2016 VIANNEY AGUSTIN MD, Ot 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 05/07/2016 VIANNEY AGUSTIN MD Ot E03.9 HYPOTHYROIDISM, UNSPECIFIED 05/07/2016 VIANNEY AGUSTIN MD Ot E11.9 TYPE 2 DIABETES MELLITUS WITHOUT COMPLIC 05/07/2016 VIANNEY AGUSTIN MD Ot E78.5 HYPERLIPIDEMIA, UNSPECIFIED 05/07/2016 VIANNEY AGUSTIN MD Ot I10 ESSENTIAL (PRIMARY) HYPERTENSION 05/07/2016 VIANNEY AGUSTIN MD Ot I25.10 ATHSCL HEART DISEASE OF [place] CORONARY 05/07/2016 VIANNEY AGUSTIN MD Ot 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+] 05/07/2016 VIANNEY AGUSTIN MD, Ot Z79.899 OTHER RETIREMENT (CURRENT) DRUG THERAPY 06/24/2016 VIANNEY AGUSTIN MD, Ot 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 06/24/2016 VIANNEY AGUSTIN MD, Ot E03.9 HYPOTHYROIDISM, UNSPECIFIED 06/24/2016 VIANNEY AGUSTIN MD Ot E11.9 TYPE 2 DIABETES MELLITUS WITHOUT COMPLIC 06/24/2016 VIANNEY AGUSTIN MD, Ot E78.5 HYPERLIPIDEMIA, UNSPECIFIED 06/24/2016 VIANNEY AGUSTIN MD Ot I10 ESSENTIAL (PRIMARY) HYPERTENSION 06/24/2016 VIANNEY AGUSTIN MD Ot I25.10 ATHSCL HEART DISEASE OF [place] CORONARY 06/24/2016 VIANNEY AGUSTIN MD, Ot 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+] 06/24/2016 VIANNEY AGUSTIN MD, Ot Z79.899 OTHER RETIREMENT (CURRENT) DRUG THERAPY 06/26/2016 PRISCILLALARRY Patrick DO Ot E03.9 HYPOTHYROIDISM, UNSPECIFIED 06/26/2016 LARRY WELLS DO Ot E11.9 TYPE 2 DIABETES MELLITUS WITHOUT COMPLIC 06/26/2016 PRISCILLA DO LARRY Yesy Ot I10 ESSENTIAL (PRIMARY) HYPERTENSION 06/26/2016 LARRY [...] INFECTION, SITE NOT SPECIF 06/26/2016 LARRY WELLS DO, Ot Z79.82 INSPECTION CLERK (CURRENT) USE OF ASPIRIN 06/26/2016 LARRY WELLS DO Ot 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 06/26/2016 LARRY WELLS DO Ot Z95.1 PRESENCE OF AORTOCORONARY BYPASS GRAFT 06/30/2016 VIANNEY AGUSTIN MD, Ot 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 06/30/2016 VIANNEY AGUSTIN MD Ot E03.9 HYPOTHYROIDISM, UNSPECIFIED 06/30/2016 VIANNEY AGUSTIN MD Ot E11.9 TYPE 2 DIABETES MELLITUS WITHOUT COMPLIC 06/30/2016 VIANNEY AGUSTIN MD Ot E78.5 HYPERLIPIDEMIA, UNSPECIFIED 06/30/2016 VIANNEY AGUSTIN MD Ot I10 ESSENTIAL (PRIMARY) HYPERTENSION 06/30/2016 VIANNEY AGUSTIN MD Ot I25.10 ATHSCL HEART DISEASE OF [place] CORONARY 06/30/2016 VIANNEY AGUSTIN MD Ot 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+] 06/30/2016 VIANNEY AGUSTIN MD Ot Z79.899 OTHER RETIREMENT (CURRENT) DRUG THERAPY 07/02/2016 Ot V76.12 OTH SCREEN MAMMO-MALIGN NEOPLASM OF [place] 07/02/2016 Ot V72.84 EXAM PRE- OPERATIVE NOS 07/02/2016 Ot 793.89 OTH (ABN) FINDINGS ON RADIOLOGICAL EXAMI 07/02/2016 Ot V76.12 OTH SCREEN MAMMO-MALIGN NEOPLASM OF [place] 07/02/2016 Ot 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 07/02/2016 MAYDA OLVERA APRN Ot 793.89 OTH (ABN) FINDINGS ON RADIOLOGICAL EXAMI 07/02/2016 MAYDA OLVERA STUD DAIRY CATTLE FARMER Ot V67.9 FOLLOW-UP EXAM NOS 07/02/2016 CRISSY [...] ENCNTR SCREEN MAMMOGRAM FOR MALIGNANT NE 07/02/2016 VIANNEY AGUSTIN MD, Ot 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 07/02/2016 VIANNEY AGUSTIN MD Ot E03.9 HYPOTHYROIDISM, UNSPECIFIED 07/02/2016 VIANNEY AGUSTIN MD Ot E11.9 TYPE 2 DIABETES MELLITUS WITHOUT COMPLIC 07/02/2016 VIANNEY AGUSTIN MD Ot E78.5 HYPERLIPIDEMIA, UNSPECIFIED 07/02/2016 VIANNEY AGUSTIN MD Ot I10 ESSENTIAL (PRIMARY) HYPERTENSION 07/02/2016 VIANNEY AGUSTIN MD Ot I25.10 ATHSCL HEART DISEASE OF [place] CORONARY 07/02/2016 VIANNEY AGUSTIN MD Ot 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+] 07/02/2016 VIANNEY AGUSTIN MD Ot Z79.899 OTHER RETIREMENT (CURRENT) DRUG THERAPY 07/03/2016 LARRY WELLS DO Ot E03.9 HYPOTHYROIDISM, UNSPECIFIED 07/03/2016 LARRY WELLS DO Ot E11.9 TYPE 2 DIABETES MELLITUS WITHOUT COMPLIC 07/03/2016 LARRY WELLS DO Ot I10 ESSENTIAL (PRIMARY) HYPERTENSION 07/03/2016 LARRY WELLS DO Ot 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 07/03/2016 LARRY WELLS DO Ot K43.9 VENTRAL HERNIA WITHOUT OBSTRUCTION OR GA 07/03/2016 LARRY WELLS DO Ot K57.30 DVRTCLOS OF LG INT W/O PERFORATION OR AB 07/03/2016 LARRY WELLS DO Ot M47.9 SPONDYLOSIS, UNSPECIFIED 07/03/2016 LARRY WELLS DO Ot M54.5 LOW BACK PAIN 07/03/2016 LARRY WELLS DO Ot N39.0 URINARY TRACT INFECTION, SITE NOT SPECIF 07/03/2016 LARRY WELLS DO Ot Z79.82 RETIREMENT (CURRENT) USE OF ASPIRIN 07/03/2016 LARRY WELLS DO Ot Z79.899 OTHER RETIREMENT (CURRENT) DRUG THERAPY 07/03/2016 LARRY WELLS DO Ot Z95.1 PRESENCE OF AORTOCORONARY BYPASS GRAFT 07/04/2016 PRISCILLA VILLAVICENCIO LARRY Yesy Ot E03.9 HYPOTHYROIDISM, UNSPECIFIED 07/04/2016 PRISCILLA LARRY K Ot E11.9 TYPE 2 DIABETES MELLITUS WITHOUT COMPLIC 07/04/2016 LARRY WELLS DO Ot I10 ESSENTIAL (PRIMARY) HYPERTENSION 07/04/2016 PRISCILLA VILLAVICENCIO LARRY K Ot 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 07/04/2016 LARRY WELLS DO [...] SPECIF 07/04/2016 LARRY WELLS DO Ot Z79.82 INSPECTION CLERK (CURRENT) USE OF ASPIRIN 07/04/2016 LARRY WELLS DO Ot Z79.899 OTHER RETIREMENT (CURRENT) DRUG THERAPY 07/04/2016 PRISCILLA VILLAVICENCIO LARRY K Ot Z95.1 PRESENCE OF AORTOCORONARY BYPASS GRAFT 07/07/2016 MAYDA OLVERA STUD DAIRY CATTLE FARMER Ot M43.16 SPONDYLOLISTHESIS, LUMBAR REGION 07/07/2016 MAYDA OLVERA STUD DAIRY CATTLE FARMER Ot M47.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, LUMBAR REGION 07/07/2016 MAYDA OLVERA STUD DAIRY CATTLE FARMER Ot R10.12 LEFT UPPER QUADRANT PAIN 07/07/2016 MAYDA OLVERA STUD DAIRY CATTLE FARMER Ot R10.32 LEFT LOWER QUADRANT PAIN 07/12/2016 [...] M54.6 PAIN IN THORACIC SPINE 07/14/2016 MIKAEL RANDALL DO Ot M54.5 LOW BACK PAIN 07/14/2016 MIKAEL RANDALL DO Ot M54.6 PAIN IN THORACIC SPINE 07/26/2016 AWDE, MAYDA R STUD DAIRY CATTLE FARMER Ot M43.16 SPONDYLOLISTHESIS, LUMBAR REGION 07/26/2016 WADE, MAYDA R STUD DAIRY CATTLE FARMER Ot M47.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, LUMBAR REGION 07/26/2016 WADE, MAYDA R STUD DAIRY CATTLE FARMER Ot R10.12 LEFT UPPER QUADRANT PAIN 07/26/2016 WADE, MAYDA R STUD DAIRY CATTLE FARMER Ot R10.32 LEFT LOWER QUADRANT PAIN 07/30/2016 MIKAEL RANDALL DO Ot M54.5 LOW BACK PAIN 07/30/2016 PRAKASH VILLAVICENCIO MIKAEL Ruffin Ot M54.6 PAIN IN THORACIC SPINE 08/04/2016 [...] MD Ot I25.10 ATHSCL HEART DISEASE OF [place] CORONARY 08/04/2016 VIANNEY AGUSTIN MD Ot 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+] 08/04/2016 VIANNEY AGUSTIN MD Ot 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 08/04/2016 PRAKASH VILLAVICENCIO MIKAEL Augustin Ot M54.5 LOW BACK PAIN 08/04/2016 PRAKASH DO MIKAEL Augustin Ot M54.6 PAIN IN THORACIC SPINE 08/05/2016 VIANNEY AGUSTIN MD Ot 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 08/05/2016 VIANNEY AGUSTIN MD Ot E03.9 HYPOTHYROIDISM, UNSPECIFIED 08/05/2016 VIANNEY AGUSTIN MD Ot E11.9 TYPE 2 DIABETES MELLITUS WITHOUT COMPLIC 08/05/2016 VIANNEY AGUSTIN MD Ot E78.5 HYPERLIPIDEMIA, UNSPECIFIED 08/05/2016 VIANNEY AGUSTIN MD Ot I10 ESSENTIAL (PRIMARY) HYPERTENSION 08/05/2016 VIANENY AGUSTIN MD Ot I25.10 ATHSCL HEART DISEASE OF [place] CORONARY 08/05/2016 VIANNEY AGUSTIN MD Ot 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+] 08/05/2016 VAMSI BUI, VIANNEY Hayward Ot 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 10/01/2016 Ot V76.12 OTH SCREEN MAMMO-MALIGN NEOPLASM OF [place] 10/01/2016 Ot V72.84 EXAM PRE- OPERATIVE NOS 10/01/2016 Ot 793.89 OTH (ABN) FINDINGS ON RADIOLOGICAL EXAMI 10/01/2016 Ot V76.12 OTH SCREEN MAMMO-MALIGN NEOPLASM OF [place] 10/01/2016 Ot 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 10/01/2016 MAYDA OLVERA APRN Ot 793.89 OTH (ABN) FINDINGS ON RADIOLOGICAL EXAMI 10/01/2016 MAYDA OLVERA APRN Ot V67.9 FOLLOW-UP EXAM NOS 10/01/2016 BRUNO BUI, CRISSY Finley Ot 793.89 OTH (ABN) FINDINGS ON RADIOLOGICAL EXAMI 10/01/2016 KATIE BUI, JUANIS Dawson Ot 174.9 MALIGN NEOPL BREAST NOS 10/01/2016 [...] 10/01/2016 Ot 723.0 CERVICAL SPINAL STENOSIS 10/01/2016 VAMSI BUI, VIANNEY Hayward Ot 174.9 MALIGN NEOPL BREAST NOS 10/01/2016 Ot 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 10/01/2016 Ot Z12.31 ENCNTR SCREEN MAMMOGRAM FOR MALIGNANT NE 10/01/2016 MAYDA OLVERA STUD DAIRY CATTLE FARMER Ot M43.16 SPONDYLOLISTHESIS, LUMBAR REGION 10/01/2016 MAYDA OLVERA STUD DAIRY CATTLE FARMER Ot M47.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, LUMBAR REGION 10/01/2016 MAYDA OLVERA STUD DAIRY CATTLE FARMER Ot R10.12 LEFT UPPER QUADRANT PAIN 10/01/2016 MAYDA OLVERA STUD DAIRY CATTLE FARMER Ot R10.32 LEFT LOWER QUADRANT PAIN 10/01/2016 PRAKASH VILLAVICENCIOMIKAEL Ot M54.5 LOW BACK PAIN 10/01/2016 MIKAEL [...] MD Ot I25.10 ATHSCL HEART DISEASE OF [place] CORONARY 10/01/2016 VIANNEY AGUSTIN MD Ot 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+] 10/01/2016 VIANNEY AGUSTIN MD Ot Z79.899 OTHER RETIREMENT (CURRENT) DRUG THERAPY 10/04/2016 BRUNO BUI, CRISSY Finley Ot R07.81 PLEURODYNIA 10/04/2016 CRISSY CARR MD Ot R07.81 PLEURODYNIA 10/25/2016 CRISSY CARR MD Ot R07.81 PLEURODYNIA 11/03/2016 Ot V76.12 OTH SCREEN MAMMO-MALIGN NEOPLASM OF [place] 11/03/2016 Ot V72.84 EXAM PRE- OPERATIVE NOS 11/03/2016 Ot 793.89 OTH (ABN) FINDINGS ON RADIOLOGICAL EXAMI 11/03/2016 Ot V76.12 OTH SCREEN MAMMO-MALIGN NEOPLASM OF [place] 11/03/2016 Ot 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 11/03/2016 MAYDA OLVERA STUD DAIRY CATTLE FARMER Ot 793.89 OTH (ABN) FINDINGS ON RADIOLOGICAL EXAMI 11/03/2016 MAYDA OLVERA STUD DAIRY CATTLE FARMER Ot V67.9 FOLLOW-UP EXAM NOS 11/03/2016 CRISSY CARR MD Ot 793.89 OTH (ABN) FINDINGS ON RADIOLOGICAL EXAMI 11/03/2016 KATIE BUI, JUANIS Dawson Ot 174.9 MALIGN NEOPL BREAST NOS 11/03/2016 [...] MAMMOGRAM FOR MALIGNANT NE 11/03/2016 MAYDA OLVERA STUD DAIRY CATTLE FARMER Ot M43.16 SPONDYLOLISTHESIS, LUMBAR REGION 11/03/2016 MAYDA OLVERA STUD DAIRY CATTLE FARMER Ot M47.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, LUMBAR REGION 11/03/2016 MAYDA OLVERA STUD DAIRY CATTLE FARMER Ot R10.12 LEFT UPPER QUADRANT PAIN 11/03/2016 MAYDA OLVERA STUD DAIRY CATTLE FARMER Ot R10.32 LEFT LOWER QUADRANT PAIN 11/03/2016 [...] MD Ot I25.10 ATHSCL HEART DISEASE OF [place] CORONARY 11/03/2016 VIANNEY AGUSTIN MD Ot 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+] 11/03/2016 VIANNEY AGUSTIN MD Ot Z79.899 OTHER RETIREMENT (CURRENT) DRUG THERAPY 11/03/2016 BRUNO BUI, CRISSY Finley Ot R07.81 PLEURODYNIA 11/04/2016 Ot V76.12 OTH SCREEN MAMMO-MALIGN NEOPLASM OF [place] 11/04/2016 Ot V72.84 EXAM PRE- OPERATIVE NOS 11/04/2016 Ot 793.89 OTH (ABN) FINDINGS [...] Ot M54.6 PAIN IN THORACIC SPINE 11/04/2016 VAMSI BUI, VIANNEY Hayward Ot 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 11/04/2016 VIANNEY AGUSTIN MD Ot E03.9 HYPOTHYROIDISM, UNSPECIFIED 11/04/2016 VIANNEY AGUSTIN MD Ot E11.9 TYPE 2 DIABETES MELLITUS WITHOUT COMPLIC 11/04/2016 VIANNEY AGUSTIN MD Ot E78.5 HYPERLIPIDEMIA, UNSPECIFIED 11/04/2016 VIANNEY AGUSTIN MD Ot I10 ESSENTIAL (PRIMARY) HYPERTENSION 11/04/2016 VIANNEY AGUSTIN MD Ot I25.10 ATHSCL HEART DISEASE OF [place] CORONARY 11/04/2016 VIANNEY AGUSTIN MD Ot 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+] 11/04/2016 VIANNEY AGUSTIN MD Ot 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 11/04/2016 BRUNO BUI, CRISSY Finley Ot R07.81 PLEURODYNIA 11/04/2016 Ot V76.12 OTH SCREEN MAMMO-MALIGN NEOPLASM OF [place] 11/04/2016 Ot V72.84 EXAM PRE- OPERATIVE NOS 11/04/2016 Ot 793.89 OTH (ABN) FINDINGS ON RADIOLOGICAL EXAMI 11/04/2016 Ot V76.12 OTH SCREEN MAMMO-MALIGN NEOPLASM OF [place] 11/04/2016 Ot 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 11/04/2016 MAYDA OLVERA STUD DAIRY CATTLE FARMER Ot 793.89 OTH (ABN) FINDINGS ON RADIOLOGICAL EXAMI 11/04/2016 MAYDA OLVERA STUD DAIRY CATTLE FARMER Ot V67.9 FOLLOW-UP EXAM NOS 11/04/2016 CRISSY [...] ENCNTR SCREEN MAMMOGRAM FOR MALIGNANT NE 11/04/2016 WADEMAYDA STUD DAIRY CATTLE FARMER Ot M43.16 SPONDYLOLISTHESIS, LUMBAR REGION 11/04/2016 WADEMAYDA STUD DAIRY CATTLE FARMER Ot M47.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, LUMBAR REGION 11/04/2016 WADEMAYDA STUD DAIRY CATTLE FARMER Ot R10.12 LEFT UPPER QUADRANT PAIN 11/04/2016 MAYDA OLVERA STUD DAIRY CATTLE FARMER Ot R10.32 LEFT LOWER QUADRANT PAIN 11/04/2016 MIKAEL RANDALL DO Ot M54.5 LOW BACK PAIN 11/04/2016 MIKAEL RANDALL DO Ot M54.6 PAIN IN THORACIC SPINE 11/04/2016 VIANNEY AGUSTIN MD Ot 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 11/04/2016 VIANNEY AGUSTIN MD Ot E03.9 HYPOTHYROIDISM, UNSPECIFIED 11/04/2016 VIANNEY AGUSTIN MD Ot E11.9 TYPE 2 DIABETES MELLITUS WITHOUT COMPLIC 11/04/2016 VINANEY AGUSTIN MD Ot E78.5 HYPERLIPIDEMIA, UNSPECIFIED 11/04/2016 VIANNEY AGUSTIN MD Ot I10 ESSENTIAL (PRIMARY) HYPERTENSION 11/04/2016 VIANNEY AGUSTIN MD Ot I25.10 ATHSCL HEART DISEASE OF [place] CORONARY 11/04/2016 VIANNEY AGUSTIN MD Ot 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+] 11/04/2016 VIANNEY AGUSTIN MD Ot Z79.899 OTHER RETIREMENT (CURRENT) DRUG THERAPY 11/04/2016 BRUNO BUI, CRISSY Finley Ot R07.81 PLEURODYNIA 11/05/2016 VIANNEY AGUSTIN MD Ot 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 11/05/2016 VIANNEY AGUSTIN MD Ot E03.9 HYPOTHYROIDISM, UNSPECIFIED 11/05/2016 VIANNEY AGUSTIN MD Ot E11.9 TYPE 2 DIABETES MELLITUS WITHOUT COMPLIC 11/05/2016 VIANNEY AGUSTIN MD Ot E78.5 HYPERLIPIDEMIA, UNSPECIFIED 11/05/2016 VIANNEY AGUSTIN MD Ot I10 ESSENTIAL (PRIMARY) HYPERTENSION 11/05/2016 VIANNEY AGUSTIN MD Ot I25.10 ATHSCL HEART DISEASE OF [place] CORONARY 11/05/2016 VIANNEY AGUSTIN MD Ot 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+] 11/05/2016 VIANNEY AGUSTIN MD Ot 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 11/16/2016 Ot V76.12 OTH SCREEN MAMMO-MALIGN NEOPLASM OF [place] 11/16/2016 Ot V72.84 EXAM PRE- OPERATIVE NOS 11/16/2016 Ot 793.89 OTH (ABN) FINDINGS ON RADIOLOGICAL EXAMI 11/16/2016 Ot V76.12 OTH SCREEN MAMMO-MALIGN NEOPLASM OF [place] 11/16/2016 Ot 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 11/16/2016 MAYDA OLVERA APRN Ot 793.89 OTH (ABN) FINDINGS ON RADIOLOGICAL EXAMI 11/16/2016 MAYDA OLVERA APRN Ot V67.9 FOLLOW-UP EXAM NOS 11/16/2016 CRISSY [...] MAMMOGRAM FOR MALIGNANT NE 11/16/2016 MAYDA OLVERA STUD DAIRY CATTLE F[employer]ER Ot M43.16 SPONDYLOLISTHESIS, LUMBAR REGION 11/16/2016 MAYDA OLVERA STUD DAIRY CATTLE FARMER Ot M47.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, LUMBAR REGION 11/16/2016 MAYDA OLVERA STUD DAIRY CATTLE FARMER Ot R10.12 LEFT UPPER QUADRANT PAIN 11/16/2016 MAYDA OLVERA STUD DAIRY CATTLE FARMER Ot R10.32 LEFT LOWER QUADRANT PAIN 11/16/2016 PRAKASH MIKAEL Ot M54.5 LOW BACK PAIN 11/16/2016 MIKAEL RANDALL DO Ot M54.6 PAIN IN THORACIC SPINE 11/16/2016 VAMSI BUI, VIANNEY Hayward Ot 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 11/16/2016 VAMSI BUI, VIANNEY Hayward Ot E03.9 HYPOTHYROIDISM, UNSPECIFIED 11/16/2016 VAMSI BUI, VIANNEY Hayward Ot E11.9 TYPE 2 DIABETES MELLITUS WITHOUT COMPLIC 11/16/2016 VAMSI BUI, VIANNEY Hayward Ot E78.5 HYPERLIPIDEMIA, UNSPECIFIED 11/16/2016 VAMSI BUI, VIANNEY Hayward Ot I10 ESSENTIAL (PRIMARY) HYPERTENSION 11/16/2016 VAMSI BUI, VIANNEY Hayward Ot I25.10 ATHSCL HEART DISEASE OF [place] CORONARY 11/16/2016 VAMSI BUI, VIANNEY Hayward Ot 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+] 11/16/2016 VAMSI BUI, VIANNEY Hayward Ot Z79.899 OTHER RETIREMENT (CURRENT) DRUG THERAPY 11/16/2016 BRUNO BUI, CRISSY Finley Ot R07.81 PLEURODYNIA 11/18/2016 Ot V76.12 OTH SCREEN MAMMO-MALIGN NEOPLASM OF [place] 11/18/2016 Ot V72.84 EXAM PRE- OPERATIVE NOS 11/18/2016 Ot 793.89 OTH (ABN) FINDINGS ON RADIOLOGICAL EXAMI 11/18/2016 Ot V76.12 OTH SCREEN MAMMO-MALIGN NEOPLASM OF [place] 11/18/2016 Ot 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 11/18/2016 MAYDA OLVERA STUD DAIRY CATTLE FARMER Ot 793.89 OTH (ABN) FINDINGS ON RADIOLOGICAL EXAMI 11/18/2016 MAYDA OLVERA STUD DAIRY CATTLE FARMER Ot V67.9 FOLLOW-UP EXAM NOS 11/18/2016 CRISSY CARR MD Ot 793.89 OTH (ABN) FINDINGS ON RADIOLOGICAL EXAMI 11/18/2016 KATIE BUI, JUANIS Dawson Ot 174.9 MALIGN NEOPL BREAST NOS 11/18/2016 KATIE BUI, JUANIS Dawson Ot V72.83 EXAM PRE-OPERATIVE NEC 11/18/2016 JUANIS WILSON MD Ot V72.84 EXAM PRE-OPERATIVE NOS 11/18/2016 KATIE BUI, JUANIS Dawson Ot V74.8 SCREEN-BACTERIAL DIS NEC 11/18/2016 JUANIS WILSON MD Ot 793.89 OTH (ABN) FINDINGS ON RADIOLOGICAL EXAMI 11/18/2016 KATIE BUI, JUANIS Dawson Ot V10.3 HX OF BREAST MALIGNANCY 11/18/2016 Ot 174.9 MALIGN NEOPL BREAST NOS 11/18/2016 Ot 729.81 SWELLING OF LIMB 11/18/2016 Ot 723.0 CERVICAL SPINAL STENOSIS 11/18/2016 VIANNEY AGUSTIN MD Ot 174.9 MALIGN NEOPL BREAST NOS 11/18/2016 Ot 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 11/18/2016 Ot Z12.31 ENCNTR SCREEN MAMMOGRAM FOR MALIGNANT NE 11/18/2016 MAYDA OLVERA STUD DAIRY CATTLE FARMER Ot M43.16 SPONDYLOLISTHESIS, LUMBAR REGION 11/18/2016 MAYDA OLVERA STUD DAIRY CATTLE FARMER Ot M47.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, LUMBAR REGION 11/18/2016 MAYDA OLVERA STUD DAIRY CATTLE FARMER Ot R10.12 LEFT UPPER QUADRANT PAIN 11/18/2016 MAYDA OLVERA STUD DAIRY CATTLE FARMER Ot R10.32 LEFT LOWER QUADRANT PAIN 11/18/2016 MIKAEL RANDALL DO Ot M54.5 LOW BACK PAIN 11/18/2016 MIKAEL RANDALL DO Ot M54.6 PAIN IN THORACIC SPINE 11/18/2016 VIANNEY AGUSTIN MD Ot 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 11/18/2016 VIANNEY AGUSTIN MD Ot E03.9 HYPOTHYROIDISM, UNSPECIFIED 11/18/2016 VIANNEY AGUSTIN MD Ot E11.9 TYPE 2 DIABETES MELLITUS WITHOUT COMPLIC 11/18/2016 VIANNEY AGUSTIN MD Ot E78.5 HYPERLIPIDEMIA, UNSPECIFIED 11/18/2016 VIANNEY AGUSTIN MD Ot I10 ESSENTIAL (PRIMARY) HYPERTENSION 11/18/2016 VIANNEY AGUSTIN MD Ot I25.10 ATHSCL HEART DISEASE OF [place] CORONARY 11/18/2016 VIANNEY AGUSTIN MD Ot 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+] 11/18/2016 VIANNEY AGUSTIN MD Ot Z79.899 OTHER RETIREMENT (CURRENT) DRUG THERAPY 11/18/2016 BRUNO BUI, CRISSY Finley Ot R07.81 PLEURODYNIA 11/19/2016 VIANNEY AGUSTIN MD Ot M81.0 AGE-RELATED OSTEOPOROSIS W/O CURRENT PAT 11/19/2016 VAMSI BUI VIANNEY Yesy Ot Z12.31 ENCNTR SCREEN MAMMOGRAM FOR MALIGNANT NE 11/19/2016 VIANNEY AGUSTIN MD Ot Z85.3 PERSONAL HISTORY OF MALIGNANT NEOPLASM O 11/19/2016 VAMSI BUI VIANNEY Yesy Ot M81.0 AGE-RELATED OSTEOPOROSIS W/O CURRENT PAT 11/19/2016 VAMSI BUI VIANNEY Yesy Ot Z12.31 ENCNTR SCREEN MAMMOGRAM FOR MALIGNANT NE 11/19/2016 VIANNEY AGUSTIN MD Ot Z85.3 PERSONAL HISTORY OF MALIGNANT NEOPLASM O 11/23/2016 VAMSI BUI VIANNEY Yesy Ot M81.0 AGE-RELATED OSTEOPOROSIS W/O CURRENT PAT 11/23/2016 VIANNEY AGUSTIN MD Ot Z12.31 ENCNTR SCREEN MAMMOGRAM FOR MALIGNANT NE 11/23/2016 VAMSI BUI VIANNEY Yesy Ot Z85.3 PERSONAL HISTORY OF MALIGNANT NEOPLASM O 12/22/2016 VAMSI BUI VIANNEY Yesy Ot M81.0 AGE-RELATED OSTEOPOROSIS W/O CURRENT PAT 12/22/2016 VAMSI BUI VIANNEY Yesy Ot Z12.31 ENCNTR SCREEN MAMMOGRAM FOR MALIGNANT NE 12/22/2016 VAMSI BUI VIANNEY Yesy Ot Z85.3 PERSONAL HISTORY OF MALIGNANT NEOPLASM O 12/22/2016 Ot V76.12 OTH SCREEN MAMMO-MALIGN NEOPLASM OF [place] 12/22/2016 Ot V72.84 EXAM PRE- OPERATIVE NOS 12/22/2016 Ot 793.89 OTH (ABN) FINDINGS ON RADIOLOGICAL EXAMI 12/22/2016 Ot V76.12 OTH SCREEN MAMMO-MALIGN NEOPLASM OF [place] 12/22/2016 Ot 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 12/22/2016 MAYAD OLVERA STUD DAIRY CATTLE FARMER Ot 793.89 OTH (ABN) FINDINGS ON RADIOLOGICAL EXAMI 12/22/2016 MAYDA OLVERA STUD DAIRY CATTLE FARMER Ot V67.9 FOLLOW-UP EXAM NOS 12/22/2016 CRISSY CARR MD Ot 793.89 OTH (ABN) FINDINGS ON RADIOLOGICAL EXAMI 12/22/2016 JUANIS WILSON MD Ot 174.9 MALIGN NEOPL BREAST NOS 12/22/2016 JUANIS WILSON MD Ot V72.83 EXAM PRE-OPERATIVE NEC 12/22/2016 JUANIS WILSON MD Ot V72.84 EXAM PRE-OPERATIVE NOS 12/22/2016 JUANIS WILSON MD Ot V74.8 SCREEN-BACTERIAL DIS NEC 12/22/2016 JUANIS WILSON MD Ot 793.89 OTH (ABN) FINDINGS ON RADIOLOGICAL EXAMI 12/22/2016 JUANIS WILSON MD Ot V10.3 HX OF BREAST MALIGNANCY 12/22/2016 Ot 174.9 MALIGN NEOPL BREAST NOS 12/22/2016 Ot 729.81 SWELLING OF LIMB 12/22/2016 Ot 723.0 CERVICAL SPINAL STENOSIS 12/22/2016 VIANNEY AGUSTIN MD Ot 174.9 MALIGN NEOPL BREAST NOS 12/22/2016 Ot 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 12/22/2016 Ot Z12.31 ENCNTR SCREEN MAMMOGRAM FOR MALIGNANT NE 12/22/2016 MAYDA OLVERA STUD DAIRY CATTLE FARMER Ot M43.16 SPONDYLOLISTHESIS, LUMBAR REGION 12/22/2016 MAYDA OLVERA STUD DAIRY CATTLE FARMER Ot M47.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, LUMBAR REGION 12/22/2016 MAYDA OLVERA STUD DAIRY CATTLE FARMER Ot R10.12 LEFT UPPER QUADRANT PAIN 12/22/2016 MAYDA OLVERA STUD DAIRY CATTLE FARMER Ot R10.32 LEFT LOWER QUADRANT PAIN 12/22/2016 MIKAEL RANDALL DO Ot M54.5 LOW BACK PAIN 12/22/2016 MIKAEL RANDALL DO Ot M54.6 PAIN IN THORACIC SPINE 12/22/2016 VIANNEY AGUSTIN MD Ot 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81 PLEURODYNIA 12/22/2016 VAMSI BUI, VIANNEY Hayward Ot M81.0 AGE-RELATED OSTEOPOROSIS W/O CURRENT PAT 12/22/2016 VAMSI BUI, VIANNEY Hayward Ot Z12.31 ENCNTR SCREEN MAMMOGRAM FOR MALIGNANT NE 12/22/2016 VAMSI BUI, VIANNEY Hayward Ot Z85.3 PERSONAL HISTORY OF MALIGNANT NEOPLASM O 12/22/2016 Ot V76.12 OTH SCREEN MAMMO-MALIGN NEOPLASM OF [place] 12/22/2016 Ot V72.84 EXAM PRE- OPERATIVE NOS 12/22/2016 Ot 793.89 OTH (ABN) FINDINGS ON RADIOLOGICAL EXAMI 12/22/2016 Ot V76.12 OTH SCREEN MAMMO-MALIGN NEOPLASM OF [place] 12/22/2016 Ot 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 12/22/2016 MAYDA OLVERA APRN Ot 793.89 OTH (ABN) FINDINGS ON RADIOLOGICAL EXAMI 12/22/2016 MAYDA OLVERA APRN Ot V67.9 FOLLOW-UP EXAM NOS 12/22/2016 BRUNO BUI, CRISSY Finley Ot 793.89 OTH (ABN) FINDINGS ON RADIOLOGICAL EXAMI 12/22/2016 JUANIS WILSON MD Ot 174.9 MALIGN NEOPL BREAST NOS 12/22/2016 JUANSI WILSON MD Ot V72.83 EXAM PRE-OPERATIVE NEC 12/22/2016 JUANIS WILSON MD Ot V72.84 EXAM PRE-OPERATIVE NOS 12/22/2016 JUANIS WILSON MD Ot V74.8 SCREEN-BACTERIAL DIS NEC 12/22/2016 JUANIS WILSON MD Ot 793.89 OTH (ABN) FINDINGS ON RADIOLOGICAL EXAMI 12/22/2016 JUANIS WILSON MD Ot V10.3 HX OF BREAST MALIGNANCY 12/22/2016 Ot 174.9 MALIGN NEOPL BREAST NOS 12/22/2016 Ot 729.81 SWELLING OF LIMB 12/22/2016 Ot 723.0 CERVICAL SPINAL STENOSIS 12/22/2016 VIANNEY AGUSTIN MD Ot 174.9 MALIGN NEOPL BREAST NOS 12/22/2016 Ot 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 12/22/2016 Ot Z12.31 ENCNTR SCREEN MAMMOGRAM FOR MALIGNANT NE 12/22/2016 MAYDA OLVERA STUD DAIRY CATTLE FARMER Ot M43.16 SPONDYLOLISTHESIS, LUMBAR REGION 12/22/2016 MAYDA OLVERA STUD DAIRY CATTLE FARMER Ot M47.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, LUMBAR REGION 12/22/2016 MAYDA OLVERA STUD DAIRY CATTLE FARMER Ot R10.12 LEFT UPPER QUADRANT PAIN 12/22/2016 MAYDA OLVERA STUD DAIRY CATTLE FARMER Ot R10.32 LEFT LOWER QUADRANT PAIN 12/22/2016 MIKAEL RANDALL DO Ot M54.5 LOW BACK PAIN 12/22/2016 MIKAEL RANDALL DO Ot M54.6 PAIN IN THORACIC SPINE 12/22/2016 VIANNEY AGUSTIN MD Ot 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81 PLEURODYNIA 12/22/2016 VIANNEY AGUSTIN MD Ot M81.0 AGE-RELATED OSTEOPOROSIS W/O CURRENT PAT 12/22/2016 VIANNEY AGUSTIN MD Ot Z12.31 ENCNTR SCREEN MAMMOGRAM FOR MALIGNANT NE 12/22/2016 VIANNEY AGUSTIN MD Ot Z85.3 PERSONAL HISTORY OF MALIGNANT NEOPLASM O 12/27/2016 VIANNEY AGUSTIN MD Ot M81.0 AGE-RELATED OSTEOPOROSIS W/O CURRENT PAT 12/27/2016 VIANNEY AGUSTIN MD Ot Z12.31 ENCNTR SCREEN MAMMOGRAM FOR MALIGNANT NE 12/27/2016 VIANNEY AGUSTIN MD Ot Z85.3 PERSONAL HISTORY OF MALIGNANT NEOPLASM O 12/28/2016 Ot V76.12 OTH SCREEN MAMMO-MALIGN NEOPLASM OF [place] 12/28/2016 Ot V72.84 EXAM PRE- OPERATIVE NOS 12/28/2016 Ot 793.89 OTH (ABN) FINDINGS ON RADIOLOGICAL EXAMI 12/28/2016 Ot V76.12 OTH SCREEN MAMMO-MALIGN NEOPLASM OF [place] 12/28/2016 Ot 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 12/28/2016 MAYDA OLVERA STUD DAIRY CATTLE FARMER Ot 793.89 OTH (ABN) FINDINGS ON RADIOLOGICAL EXAMI 12/28/2016 MAYDA OLVERA APRN Ot V67.9 FOLLOW-UP EXAM NOS 12/28/2016 BRUNO BUI, CRISSY Finley Ot 793.89 OTH (ABN) FINDINGS ON RADIOLOGICAL EXAMI 12/28/2016 JUANIS WILSON MD Ot 174.9 MALIGN NEOPL BREAST NOS 12/28/2016 KATIE BUI, JUANIS Dawson Ot V72.83 EXAM PRE-OPERATIVE NEC 12/28/2016 JUANIS WILSON MD Ot V72.84 EXAM PRE-OPERATIVE NOS 12/28/2016 JUANIS WILSON MD Ot V74.8 SCREEN-BACTERIAL DIS NEC 12/28/2016 JUANIS WILSON MD Ot 793.89 OTH (ABN) FINDINGS ON RADIOLOGICAL EXAMI 12/28/2016 JUANIS WILSON MD Ot V10.3 HX OF BREAST MALIGNANCY 12/28/2016 Ot 174.9 MALIGN NEOPL BREAST NOS 12/28/2016 Ot 729.81 SWELLING OF LIMB 12/28/2016 Ot 723.0 CERVICAL SPINAL STENOSIS 12/28/2016 VIANNEY AGUSTIN MD Ot 174.9 MALIGN NEOPL BREAST NOS 12/28/2016 Ot 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 12/28/2016 Ot Z12.31 ENCNTR SCREEN MAMMOGRAM FOR MALIGNANT NE 12/28/2016 MAYDA OLVERA STUD DAIRY CATTLE FARMER Ot M43.16 SPONDYLOLISTHESIS, LUMBAR REGION 12/28/2016 MAYDA OLVERA STUD DAIRY CATTLE FARMER Ot M47.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, LUMBAR REGION 12/28/2016 MAYDA OLVERA STUD DAIRY CATTLE FARMER Ot R10.12 LEFT UPPER QUADRANT PAIN 12/28/2016 MAYDA OLVERA STUD DAIRY CATTLE FARMER Ot R10.32 LEFT LOWER QUADRANT PAIN 12/28/2016 MIKAEL RANDALL DO Ot M54.5 LOW BACK PAIN 12/28/2016 MIKAEL RANDALL DO Ot M54.6 PAIN IN THORACIC SPINE 12/28/2016 VIANNEY AGUSTIN MD Ot 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 12/28/2016 VIANNEY AGUSTIN MD Ot E03.9 HYPOTHYROIDISM, UNSPECIFIED 12/28/2016 VIANNEY AGUSTIN MD Ot E11.9 TYPE 2 DIABETES MELLITUS WITHOUT COMPLIC 12/28/2016 VIANNEY AGUSTIN MD Ot E78.5 HYPERLIPIDEMIA, UNSPECIFIED 12/28/2016 VIANNEY AGUSTIN MD Ot I10 ESSENTIAL (PRIMARY) HYPERTENSION 12/28/2016 VIANNEY AGUSTIN MD Ot I25.10 ATHSCL HEART DISEASE OF [place] CORONARY 12/28/2016 VIANNEY AGUSTIN MD Ot 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+] 12/28/2016 VIANNEY AGUSTIN MD Ot Z79.899 OTHER RETIREMENT (CURRENT) DRUG THERAPY 12/28/2016 CRISSY CARR MD Ot R07.81 PLEURODYNIA 12/28/2016 VIANNEY AGUSTIN MD Ot M81.0 AGE-RELATED OSTEOPOROSIS W/O CURRENT PAT 12/28/2016 VIANNEY AGUSTIN MD Ot Z12.31 ENCNTR SCREEN MAMMOGRAM FOR MALIGNANT NE 12/28/2016 VIANNEY AGUSTIN MD Ot Z85.3 PERSONAL HISTORY OF MALIGNANT NEOPLASM O 12/30/2016 Ot V76.12 OTH SCREEN MAMMO-MALIGN NEOPLASM OF [place] 12/30/2016 Ot V72.84 EXAM PRE- OPERATIVE NOS 12/30/2016 Ot 793.89 OTH (ABN) FINDINGS ON RADIOLOGICAL EXAMI 12/30/2016 Ot V76.12 OTH SCREEN MAMMO-MALIGN NEOPLASM OF [place] 12/30/2016 Ot 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 12/30/2016 MAYDA OLVERA STUD DAIRY CATTLE FARMER Ot 793.89 OTH (ABN) FINDINGS ON RADIOLOGICAL EXAMI 12/30/2016 MAYDA OLVERA STUD DAIRY CATTLE FARMER Ot V67.9 FOLLOW-UP EXAM NOS 12/30/2016 CRISSY CARR MD Ot 793.89 OTH (ABN) FINDINGS ON RADIOLOGICAL EXAMI 12/30/2016 JUANIS WILSON MD Ot 174.9 MALIGN NEOPL BREAST NOS 12/30/2016 JUANIS WILSON MD Ot V72.83 EXAM PRE-OPERATIVE NEC 12/30/2016 JUANIS WILSON MD Ot V72.84 EXAM PRE-OPERATIVE NOS 12/30/2016 JUANIS WILSON MD Ot V74.8 SCREEN-BACTERIAL DIS NEC 12/30/2016 JUANIS WILSON MD Ot 793.89 OTH (ABN) FINDINGS ON RADIOLOGICAL EXAMI 12/30/2016 KATIE BUI, JUANIS Dawson Ot V10.3 HX OF BREAST MALIGNANCY 12/30/2016 Ot 174.9 MALIGN NEOPL BREAST NOS 12/30/2016 Ot 729.81 SWELLING OF LIMB 12/30/2016 Ot 723.0 CERVICAL SPINAL STENOSIS 12/30/2016 VIANNEY AGUSTIN MD Ot 174.9 MALIGN NEOPL BREAST NOS 12/30/2016 Ot 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 12/30/2016 Ot Z12.31 ENCNTR SCREEN MAMMOGRAM FOR MALIGNANT NE 12/30/2016 WADEMAYDA STUD DAIRY CATTLE FARMER Ot M43.16 SPONDYLOLISTHESIS, LUMBAR REGION 12/30/2016 WADEMAYDA STUD DAIRY CATTLE FARMER Ot M47.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, LUMBAR REGION 12/30/2016 WADEMAYDA STUD DAIRY CATTLE FARMER Ot R10.12 LEFT UPPER QUADRANT PAIN 12/30/2016 WADEMAYDA STUD DAIRY CATTLE FARMER Ot R10.32 LEFT LOWER QUADRANT PAIN 12/30/2016 MIKAEL RANDALL DO Ot M54.5 LOW BACK PAIN 12/30/2016 MIKAEL RANDALL DO Ot M54.6 PAIN IN THORACIC SPINE 12/30/2016 VIANNEY AGUSTIN MD Ot 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 12/30/2016 VIANNEY AGUSTIN MD Ot E03.9 HYPOTHYROIDISM, UNSPECIFIED 12/30/2016 VIANNEY AGUSTIN MD Ot E11.9 TYPE 2 DIABETES MELLITUS WITHOUT COMPLIC 12/30/2016 VIANNEY AGUSTIN MD Ot E78.5 HYPERLIPIDEMIA, UNSPECIFIED 12/30/2016 VIANNEY AGUSTIN MD Ot I10 ESSENTIAL (PRIMARY) HYPERTENSION 12/30/2016 VIANNEY AGUSTIN MD Ot I25.10 ATHSCL HEART DISEASE OF [place] CORONARY 12/30/2016 VIANNEY AGUSTIN MD Ot 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+] 12/30/2016 VIANNEY AGUSTIN MD Ot Z79.899 OTHER RETIREMENT (CURRENT) DRUG THERAPY 12/30/2016 BRUNO BUI, CRISSY Finley Ot R07.81 PLEURODYNIA 12/30/2016 VIANNEY AGUSTIN MD Ot M81.0 AGE-RELATED OSTEOPOROSIS W/O CURRENT PAT 12/30/2016 VIANNEY AGUSTIN MD Ot Z12.31 ENCNTR SCREEN MAMMOGRAM FOR MALIGNANT NE 12/30/2016 VIANNEY AGUSTIN MD Ot Z85.3 PERSONAL HISTORY OF MALIGNANT NEOPLASM O 12/30/2016 Ot V76.12 OTH SCREEN MAMMO-MALIGN NEOPLASM OF [place] 12/30/2016 Ot V72.84 EXAM PRE- OPERATIVE NOS 12/30/2016 Ot 793.89 OTH (ABN) FINDINGS ON RADIOLOGICAL EXAMI 12/30/2016 Ot V76.12 OTH SCREEN MAMMO-MALIGN NEOPLASM OF [place] 12/30/2016 Ot 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 12/30/2016 MAYDA OLVERA APRN Ot 793.89 OTH (ABN) FINDINGS ON RADIOLOGICAL EXAMI 12/30/2016 MAYDA OLVERA APRN Ot V67.9 FOLLOW-UP EXAM NOS 12/30/2016 BRUNO BUI, CRISSY Finley Ot 793.89 OTH (ABN) FINDINGS ON RADIOLOGICAL EXAMI 12/30/2016 JUANIS WILSON MD Ot 174.9 MALIGN NEOPL BREAST NOS 12/30/2016 JUANIS WILSON MD Ot V72.83 EXAM PRE-OPERATIVE NEC 12/30/2016 JUANIS WILSON MD Ot V72.84 EXAM PRE-OPERATIVE NOS 12/30/2016 JUANIS WILSON MD Ot V74.8 SCREEN-BACTERIAL DIS NEC 12/30/2016 JUANIS WILSON MD Ot 793.89 OTH (ABN) FINDINGS ON RADIOLOGICAL EXAMI 12/30/2016 JUANIS WILSON MD Ot V10.3 HX OF BREAST MALIGNANCY 12/30/2016 Ot 174.9 MALIGN NEOPL BREAST NOS 12/30/2016 Ot 729.81 SWELLING OF LIMB 12/30/2016 Ot 723.0 CERVICAL SPINAL STENOSIS 12/30/2016 VIANNEY AGUSTIN MD Ot 174.9 MALIGN NEOPL BREAST NOS 12/30/2016 Ot 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 12/30/2016 Ot Z12.31 ENCNTR SCREEN MAMMOGRAM FOR MALIGNANT NE 12/30/2016 MAYDA OLVERA STUD DAIRY CATTLE FARMER Ot M43.16 SPONDYLOLISTHESIS, LUMBAR REGION 12/30/2016 MAYDA OLVERA STUD DAIRY CATTLE FARMER Ot M47.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, LUMBAR REGION 12/30/2016 MAYDA OLVERA STUD DAIRY CATTLE FARMER Ot R10.12 LEFT UPPER QUADRANT PAIN 12/30/2016 MAYDA OLVERA STUD DAIRY CATTLE FARMER Ot R10.32 LEFT LOWER QUADRANT PAIN 12/30/2016 MIKAEL RANDALL DO Ot M54.5 LOW BACK PAIN 12/30/2016 MIKAEL RANDALL DO Ot M54.6 PAIN IN THORACIC SPINE 12/30/2016 VIANNEY AGUSTIN MD Ot 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 12/30/2016 VIANNEY AGUSTIN MD Ot E03.9 HYPOTHYROIDISM, UNSPECIFIED 12/30/2016 VIANNEY AGUSTIN MD Ot E11.9 TYPE 2 DIABETES MELLITUS WITHOUT COMPLIC 12/30/2016 VIANNEY AGUSTIN MD Ot E78.5 HYPERLIPIDEMIA, UNSPECIFIED 12/30/2016 VIANNEY AGUSTIN MD Ot I10 ESSENTIAL (PRIMARY) HYPERTENSION 12/30/2016 VIANNEY AGUSTIN MD Ot I25.10 ATHSCL HEART DISEASE OF [place] CORONARY 12/30/2016 VIANNEY AGUSTIN MD Ot 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+] 12/30/2016 VIANNEY AGUSTIN MD Ot Z79.899 OTHER RETIREMENT (CURRENT) DRUG THERAPY 12/30/2016 CRISSY ACRR MD Ot R07.81 PLEURODYNIA 12/30/2016 VIANNEY AGUSTIN MD Ot M81.0 AGE-RELATED OSTEOPOROSIS W/O CURRENT PAT 12/30/2016 VIANNEY AGUSTIN MD Ot Z12.31 ENCNTR SCREEN MAMMOGRAM FOR MALIGNANT NE 12/30/2016 VIANNEY AGUSTIN MD Ot Z85.3 PERSONAL HISTORY OF MALIGNANT NEOPLASM O 01/03/2017 Ot V76.12 OTH SCREEN MAMMO-MALIGN NEOPLASM OF [place] 01/03/2017 Ot V72.84 EXAM PRE- OPERATIVE NOS 01/03/2017 Ot 793.89 OTH (ABN) FINDINGS ON RADIOLOGICAL EXAMI 01/03/2017 Ot V76.12 OTH SCREEN MAMMO-MALIGN NEOPLASM OF [place] 01/03/2017 Ot 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 01/03/2017 MAYDA OLVERA STUD DAIRY CATTLE FARMER Ot 793.89 OTH (ABN) FINDINGS ON RADIOLOGICAL EXAMI 01/03/2017 MAYDA OLVERA STUD DAIRY CATTLE FARMER Ot V67.9 FOLLOW-UP EXAM NOS 01/03/2017 CRISSY CARR MD Ot 793.89 OTH (ABN) FINDINGS ON RADIOLOGICAL EXAMI 01/03/2017 JUANIS WILSON MD Ot 174.9 MALIGN NEOPL BREAST NOS 01/03/2017 KATIE MD, JUANIS S Ot V72.83 EXAM PRE-OPERATIVE NEC 01/03/2017 KATIE BUI, JUANIS S Ot V72.84 EXAM PRE-OPERATIVE NOS 01/03/2017 KATIE BUI, JUANIS Eunice Ot V74.8 SCREEN-BACTERIAL DIS NEC 01/03/2017 KATIE BUI, JUANIS Dawson Ot 793.89 OTH (ABN) FINDINGS ON RADIOLOGICAL EXAMI 01/03/2017 KATIE BUI, JUANIS Dawson Ot V10.3 HX OF BREAST MALIGNANCY 01/03/2017 Ot 174.9 MALIGN NEOPL BREAST NOS 01/03/2017 Ot 729.81 SWELLING OF LIMB 01/03/2017 Ot 723.0 CERVICAL SPINAL STENOSIS 01/03/2017 VIANNEY AGUSTIN MD Ot 174.9 MALIGN NEOPL BREAST NOS 01/03/2017 Ot 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 01/03/2017 Ot Z12.31 ENCNTR SCREEN MAMMOGRAM FOR MALIGNANT NE 01/03/2017 MAYDA OLVERA STUD DAIRY CATTLE FARMER Ot M43.16 SPONDYLOLISTHESIS, LUMBAR REGION 01/03/2017 MAYDA OLVERA STUD DAIRY CATTLE FARMER Ot M47.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, LUMBAR REGION 01/03/2017 MAYDA OLVERA STUD DAIRY CATTLE FARMER Ot R10.12 LEFT UPPER QUADRANT PAIN 01/03/2017 WADEMAYDA STUD DAIRY CATTLE FARMER Ot R10.32 LEFT LOWER QUADRANT PAIN 01/03/2017 MIKAEL RANADLL DO Ot M54.5 LOW BACK PAIN 01/03/2017 MIKAEL RANDALL DO Ot M54.6 PAIN IN THORACIC SPINE 01/03/2017 VIANNEY AGUSTIN MD Ot 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 01/03/2017 VIANNEY AGUSTIN MD Ot E03.9 HYPOTHYROIDISM, UNSPECIFIED 01/03/2017 VIANNEY AGUSTIN MD Ot E11.9 TYPE 2 DIABETES MELLITUS WITHOUT COMPLIC 01/03/2017 VIANNEY AGUSTIN MD Ot E78.5 HYPERLIPIDEMIA, UNSPECIFIED 01/03/2017 VIANNEY AGUSTIN MD Ot I10 ESSENTIAL (PRIMARY) HYPERTENSION 01/03/2017 VIANNEY AGUSTIN MD Ot I25.10 ATHSCL HEART DISEASE OF [place] CORONARY 01/03/2017 VIANNEY AGUSTIN MD Ot 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+] 01/03/2017 VIANNEY AGUSTIN MD Ot 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 01/03/2017 CRISSY CARR MD Ot R07.81 PLEURODYNIA 01/03/2017 VIANNEY AGUSTIN MD Ot M81.0 AGE-RELATED OSTEOPOROSIS W/O CURRENT PAT 01/03/2017 VIANNEY AGUSTIN MD Ot Z12.31 ENCNTR SCREEN MAMMOGRAM FOR MALIGNANT NE 01/03/2017 VIANNEY AGUSTIN MD Ot Z85.3 PERSONAL HISTORY OF MALIGNANT NEOPLASM O 01/03/2017 VIANNEY AGUSTIN MD Ot K57.30 DVRTCLOS OF LG INT W/O PERFORATION OR AB 01/03/2017 VIANNEY AGUSTIN MD Ot M54.5 LOW BACK PAIN 01/03/2017 VIANNEY AGUSTIN MD Ot N28.1 CYST OF KIDNEY, ACQUIRED 01/03/2017 VIANNEY AGUSTIN MD Ot N32.9 BLADDER DISORDER, UNSPECIFIED 01/03/2017 VIANNEY AGUSTIN MD Ot R10.9 UNSPECIFIED ABDOMINAL PAIN 01/03/2017 VIANNEY AGUSTIN MD Ot R91.8 OTHER NONSPECIFIC ABNORMAL FINDING OF [place] 01/03/2017 Ot V76.12 OTH SCREEN MAMMO-MALIGN NEOPLASM OF [place] 01/03/2017 Ot V72.84 EXAM PRE- OPERATIVE NOS 01/03/2017 Ot 793.89 OTH (ABN) FINDINGS ON RADIOLOGICAL EXAMI 01/03/2017 Ot V76.12 OTH SCREEN MAMMO-MALIGN NEOPLASM OF [place] 01/03/2017 Ot 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 01/03/2017 MAYDA OLVERA APRN Ot 793.89 OTH (ABN) FINDINGS ON RADIOLOGICAL EXAMI 01/03/2017 MAYDA OLVERA APRN Ot V67.9 FOLLOW-UP EXAM NOS 01/03/2017 CRISSY CARR MD Ot 793.89 OTH (ABN) FINDINGS ON RADIOLOGICAL EXAMI 01/03/2017 JUANIS WILSON MD Ot 174.9 MALIGN NEOPL BREAST NOS 01/03/2017 JUANIS WILSON MD Ot V72.83 EXAM PRE-OPERATIVE NEC 01/03/2017 JUANIS WILSON MD Ot V72.84 EXAM PRE-OPERATIVE NOS 01/03/2017 JUANIS WILSON MD Ot V74.8 SCREEN-BACTERIAL DIS NEC 01/03/2017 JUANIS WISLON MD Ot 793.89 OTH (ABN) FINDINGS ON RADIOLOGICAL EXAMI 01/03/2017 JUANIS WILSON MD Ot V10.3 HX OF BREAST MALIGNANCY 01/03/2017 Ot 174.9 MALIGN NEOPL BREAST NOS 01/03/2017 Ot 729.81 SWELLING OF LIMB 01/03/2017 Ot 723.0 CERVICAL SPINAL STENOSIS 01/03/2017 VIANNEY AGUSTIN MD Ot 174.9 MALIGN NEOPL BREAST NOS 01/03/2017 Ot 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 01/03/2017 Ot Z12.31 ENCNTR SCREEN MAMMOGRAM FOR MALIGNANT NE 01/03/2017 MAYDA OLVERA STUD DAIRY CATTLE FARMER Ot M43.16 SPONDYLOLISTHESIS, LUMBAR REGION 01/03/2017 MAYDA OLVERA STUD DAIRY CATTLE FARMER Ot M47.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, LUMBAR REGION 01/03/2017 MAYDA OLVERA STUD DAIRY CATTLE FARMER Ot R10.12 LEFT UPPER QUADRANT PAIN 01/03/2017 MAYDA OLVERA STUD DAIRY CATTLE FARMER Ot R10.32 LEFT LOWER QUADRANT PAIN 01/03/2017 MIKAEL RANDALL DO Ot M54.5 LOW BACK PAIN 01/03/2017 MIKAEL RANDALL DO Ot M54.6 PAIN IN THORACIC SPINE 01/03/2017 VIANNEY AGUSTIN MD Ot 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 01/03/2017 VIANNEY AGUSTIN MD Ot E03.9 HYPOTHYROIDISM, UNSPECIFIED 01/03/2017 VIANNEY AGUSTIN MD Ot E11.9 TYPE 2 DIABETES MELLITUS WITHOUT COMPLIC 01/03/2017 VIANNEY AGUSTIN MD Ot E78.5 HYPERLIPIDEMIA, UNSPECIFIED 01/03/2017 VIANNEY AGUSTIN MD Ot I10 ESSENTIAL (PRIMARY) HYPERTENSION 01/03/2017 VIANNEY AGUSTIN MD, Ot I25.10 ATHSCL HEART DISEASE OF [place] CORONARY 01/03/2017 VIANNEY AGUSTIN MD Ot 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+] 01/03/2017 VIANNEY AGUSTIN MD Ot 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 01/03/2017 BRUNO BUI, CRISSY Finley Ot R07.81 PLEURODYNIA 01/03/2017 VIANNEY AGUSTIN MD Ot M81.0 AGE-RELATED OSTEOPOROSIS W/O CURRENT PAT 01/03/2017 VIANNEY AGUSTIN MD Ot Z12.31 ENCNTR SCREEN MAMMOGRAM FOR MALIGNANT NE 01/03/2017 VIANNEY AGUSTIN MD Ot Z85.3 PERSONAL HISTORY OF MALIGNANT NEOPLASM O 01/03/2017 VIANNEY AGUSTIN MD Ot K57.30 DVRTCLOS OF LG INT W/O PERFORATION OR AB 01/03/2017 VIANNEY AGUSTIN MD Ot M54.5 LOW BACK PAIN 01/03/2017 VIANNEY AGUSTIN MD Ot N28.1 CYST OF KIDNEY, ACQUIRED 01/03/2017 VIANNEY AGUSTIN MD Ot N32.9 BLADDER DISORDER, UNSPECIFIED 01/03/2017 VIANNEY AGUSTIN MD Ot R10.9 UNSPECIFIED ABDOMINAL PAIN 01/03/2017 VIANNEY AGUSTIN MD Ot R91.8 OTHER NONSPECIFIC ABNORMAL FINDING OF [place] 01/03/2017 Ot V76.12 OTH SCREEN MAMMO-MALIGN NEOPLASM OF [place] 01/03/2017 Ot V72.84 EXAM PRE- OPERATIVE NOS 01/03/2017 Ot 793.89 OTH (ABN) FINDINGS ON RADIOLOGICAL EXAMI 01/03/2017 Ot V76.12 OTH SCREEN MAMMO-MALIGN NEOPLASM OF [place] 01/03/2017 Ot 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 01/03/2017 MAYDA OLVERA APRN Ot 793.89 OTH (ABN) FINDINGS ON RADIOLOGICAL EXAMI 01/03/2017 MAYDA OLVERA STUD DAIRY CATTLE F[employer]ER Ot V67.9 FOLLOW-UP EXAM NOS 01/03/2017 CRISSY CARR MD Ot 793.89 OTH (ABN) FINDINGS ON RADIOLOGICAL EXAMI 01/03/2017 JUANIS WILSON MD Ot 174.9 MALIGN NEOPL BREAST NOS 01/03/2017 JUANIS WILSON MD Ot V72.83 EXAM PRE-OPERATIVE NEC 01/03/2017 JUANIS WILSON MD Ot V72.84 EXAM PRE-OPERATIVE NOS 01/03/2017 JUANIS WILSON MD Ot V74.8 SCREEN-BACTERIAL DIS NEC 01/03/2017 JUANIS WILSON MD Ot 793.89 OTH (ABN) FINDINGS ON RADIOLOGICAL EXAMI 01/03/2017 JUANIS WILSON MD Ot V10.3 HX OF BREAST MALIGNANCY 01/03/2017 Ot 174.9 MALIGN NEOPL BREAST NOS 01/03/2017 Ot 729.81 SWELLING OF LIMB 01/03/2017 Ot 723.0 CERVICAL SPINAL STENOSIS 01/03/2017 VIANNEY AGUSTIN MD Ot 174.9 MALIGN NEOPL BREAST NOS 01/03/2017 Ot 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 01/03/2017 Ot Z12.31 ENCNTR SCREEN MAMMOGRAM FOR MALIGNANT NE 01/03/2017 MAYDA OLVERA STUD DAIRY CATTLE FARMER Ot M43.16 SPONDYLOLISTHESIS, LUMBAR REGION 01/03/2017 WADEMAYDA STUD DAIRY CATTLE FARMER Ot M47.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, LUMBAR REGION 01/03/2017 WADEMAYDA STUD DAIRY CATTLE FARMER Ot R10.12 LEFT UPPER QUADRANT PAIN 01/03/2017 WADEMAYDA STUD DAIRY CATTLE FARMER Ot R10.32 LEFT LOWER QUADRANT PAIN 01/03/2017 MIKAEL RANDALL DO Ot M54.5 LOW BACK PAIN 01/03/2017 MIKAEL RANDALL DO Ot M54.6 PAIN IN THORACIC SPINE 01/03/2017 VIANNEY AGUSTIN MD Ot 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 01/03/2017 VIANNEY AGUSTIN MD Ot E03.9 HYPOTHYROIDISM, UNSPECIFIED 01/03/2017 VIANNEY AGUSTIN MD Ot E11.9 TYPE 2 DIABETES MELLITUS WITHOUT COMPLIC 01/03/2017 VIANNEY AGUSTIN MD Ot E78.5 HYPERLIPIDEMIA, UNSPECIFIED 01/03/2017 VIANNEY AGUSTIN MD Ot I10 ESSENTIAL (PRIMARY) HYPERTENSION 01/03/2017 VIANNEY AGUSTIN MD, Ot I25.10 ATHSCL HEART DISEASE OF [place] CORONARY 01/03/2017 VIANNEY AGUSTIN MD, Ot 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+] 01/03/2017 VIANNEY AGUSTIN MD, Ot Z79.899 OTHER RETIREMENT (CURRENT) DRUG THERAPY 01/03/2017 BRUNO BUI, CRISSY Finley Ot R07.81 PLEURODYNIA 01/03/2017 VIANNEY AGUSTIN MD Ot M81.0 AGE-RELATED OSTEOPOROSIS W/O CURRENT PAT 01/03/2017 VIANNEY AGUSTIN MD Ot Z12.31 ENCNTR SCREEN MAMMOGRAM FOR MALIGNANT NE 01/03/2017 VIANNEY AGUSTIN MD Ot Z85.3 PERSONAL HISTORY OF MALIGNANT NEOPLASM O 01/03/2017 VIANNEY AGUSTIN MD Ot K57.30 DVRTCLOS OF LG INT W/O PERFORATION OR AB 01/03/2017 VIANNEY AGUSTIN MD Ot M54.5 LOW BACK PAIN 01/03/2017 VIANNEY AGUSTIN MD Ot N28.1 CYST OF KIDNEY, ACQUIRED 01/03/2017 VIANNEY AGUSTIN MD Ot N32.9 BLADDER DISORDER, UNSPECIFIED 01/03/2017 VIANNEY AGUSTIN MD Ot R10.9 UNSPECIFIED ABDOMINAL PAIN 01/03/2017 VIANNEY AGUSTIN MD Ot R91.8 OTHER NONSPECIFIC ABNORMAL FINDING OF [place] 01/03/2017 LUANNE BARROS MD, Ot M53.3 SACROCOCCYGEAL DISORDERS, NOT ELSEWHERE 01/03/2017 LUANNE BARROS MD, Ot 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 01/18/2017 VIANNEY AGUSTIN MD, Ot 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 01/18/2017 VIANNEY AGUSTIN MD Ot E03.9 HYPOTHYROIDISM, UNSPECIFIED 01/18/2017 VIANNEY AGUSTIN MD Ot E11.9 TYPE 2 DIABETES MELLITUS WITHOUT COMPLIC 01/18/2017 VIANNEY AGUSTIN MD Ot E78.5 HYPERLIPIDEMIA, UNSPECIFIED 01/18/2017 VIANNEY AGUSTIN MD Ot I10 ESSENTIAL (PRIMARY) HYPERTENSION 01/18/2017 VIANNEY AGUSTIN MD Ot I25.10 ATHSCL HEART DISEASE OF [place] CORONARY 01/18/2017 VIANNEY AGUSTIN MD Ot 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+] 01/18/2017 VIANNEY AGUSTIN MD, Ot 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 01/21/2017 VIANNEY AGUSTIN MD Ot K57.30 DVRTCLOS OF LG INT W/O PERFORATION OR AB 01/21/2017 VIANNEY AGUSTIN MD, Ot M54.5 LOW BACK PAIN 01/21/2017 VIANNEY AGUSTIN MD Ot N28.1 CYST OF KIDNEY, ACQUIRED 01/21/2017 VIANNEY AGUSTIN MD Ot N32.9 BLADDER DISORDER, UNSPECIFIED 01/21/2017 VIANNEY AGUSTIN MD Ot R10.9 UNSPECIFIED ABDOMINAL PAIN 01/21/2017 VIANNEY AGUSTIN MD Ot R91.8 OTHER NONSPECIFIC ABNORMAL FINDING OF [place] 01/26/2017 LUANNE BARROS MD, Ot M53.3 SACROCOCCYGEAL DISORDERS, NOT ELSEWHERE 01/26/2017 LUANNE BARROS MD, Ot 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 01/28/2017 VIANNEY AGUSTIN MD, Ot 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 01/28/2017 VIANNEY AGUSTIN MD Ot E03.9 HYPOTHYROIDISM, UNSPECIFIED 01/28/2017 VIANNEY AGUSTIN MD Ot E11.9 TYPE 2 DIABETES MELLITUS WITHOUT COMPLIC 01/28/2017 VIANNEY AGUSTIN MD Ot E78.5 HYPERLIPIDEMIA, UNSPECIFIED 01/28/2017 VIANNEY AGUSTIN MD Ot I10 ESSENTIAL (PRIMARY) HYPERTENSION 01/28/2017 VIANNEY AGUSTIN MD, Ot I25.10 ATHSCL HEART DISEASE OF [place] CORONARY 01/28/2017 VIANNEY AGUSTIN MD, Ot 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+] 01/28/2017 VIANNEY AGUSTIN MD, Ot Z79.899 OTHER RETIREMENT (CURRENT) DRUG THERAPY 02/02/2017 VIANNEY AGUSTIN MD, Ot 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 02/02/2017 VIANNEY AGUSTIN MD, Ot E03.9 HYPOTHYROIDISM, UNSPECIFIED 02/02/2017 VIANNEY AGUSTIN MD Ot E11.9 TYPE 2 DIABETES MELLITUS WITHOUT COMPLIC 02/02/2017 VIANNEY AGUSTIN MD, Ot E78.5 HYPERLIPIDEMIA, UNSPECIFIED 02/02/2017 VIANNEY AGUSTIN MD Ot I10 ESSENTIAL (PRIMARY) HYPERTENSION 02/02/2017 VIANNEY AGUSTIN MD, Ot I25.10 ATHSCL HEART DISEASE OF [place] CORONARY 02/02/2017 VIANNEY AGUSTIN MD, Ot 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+] 02/02/2017 VIANNEY AGUSTIN MD, Ot Z79.899 OTHER RETIREMENT (CURRENT) DRUG THERAPY 02/02/2017 VIANNEY AGUSTIN MD Ot K57.30 DVRTCLOS OF LG INT W/O PERFORATION OR AB 02/02/2017 VIANNEY AGUSTIN MD, Ot M54.5 LOW BACK PAIN 02/02/2017 VIANNEY AGUSTIN MD Ot N28.1 CYST OF KIDNEY, ACQUIRED 02/02/2017 VIANNEY AGUSTIN MD Ot N32.9 BLADDER DISORDER, UNSPECIFIED 02/02/2017 VIANNEY AGUSTIN MD Ot R10.9 UNSPECIFIED ABDOMINAL PAIN 02/02/2017 VIANNEY AGUSTIN MD Ot R91.8 OTHER NONSPECIFIC ABNORMAL FINDING OF [place] 02/08/2017 VIANNEY AGUSTIN MD, Ot 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 02/08/2017 VIANNEY AGUSTIN MD, Ot E03.9 HYPOTHYROIDISM, UNSPECIFIED 02/08/2017 VIANNEY AGUSTIN MD Ot E11.9 TYPE 2 DIABETES MELLITUS WITHOUT COMPLIC 02/08/2017 VIANNEY AGUSTIN MD Ot E78.5 HYPERLIPIDEMIA, UNSPECIFIED 02/08/2017 VIANNEY AGUSTIN MD Ot I10 ESSENTIAL (PRIMARY) HYPERTENSION 02/08/2017 VIANNEY AGUSTIN MD, Ot I25.10 ATHSCL HEART DISEASE OF [place] CORONARY 02/08/2017 VAMSI BUI, VIANNEY Hayward Ot 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+] 02/08/2017 VIANNEY AGUSTIN MD Ot Z79.899 OTHER RETIREMENT (CURRENT) DRUG THERAPY 02/21/2017 LUANNE BARROS MD Ot M53.3 SACROCOCCYGEAL DISORDERS, NOT ELSEWHERE 03/14/2017 VIANNEY AGUSTIN MD Ot 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 03/14/2017 VIANNEY AGUSTIN MD Ot E03.9 HYPOTHYROIDISM, UNSPECIFIED 03/14/2017 VIANNEY AGUSTIN MD Ot E11.9 TYPE 2 DIABETES MELLITUS WITHOUT COMPLIC 03/14/2017 VIANNEY AGUSTIN MD Ot E78.5 HYPERLIPIDEMIA, UNSPECIFIED 03/14/2017 VIANNEY AGUSTIN MD Ot I10 ESSENTIAL (PRIMARY) HYPERTENSION 03/14/2017 VIANNEY AGUSTIN MD Ot I25.10 ATHSCL HEART DISEASE OF [place] CORONARY 03/14/2017 VIANNEY AGUSTIN MD Ot 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+] 03/14/2017 VIANNEY AGUSTIN MD Ot Z79.899 OTHER RETIREMENT (CURRENT) DRUG THERAPY 03/31/2017 Ot V72.84 EXAM PRE- OPERATIVE NOS 03/31/2017 Ot 793.89 OTH (ABN) FINDINGS ON RADIOLOGICAL EXAMI 03/31/2017 Ot V76.12 OTH SCREEN MAMMO-MALIGN NEOPLASM OF [place] 03/31/2017 Ot 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 03/31/2017 MAYDA OLVERA STUD DAIRY [employer]ATTLE FARMER Ot 793.89 OTH (ABN) FINDINGS ON RADIOLOGICAL EXAMI 03/31/2017 MAYDA OLVERA STUD DAIRY [employer]ATTLE FARMER Ot V67.9 FOLLOW-UP EXAM NOS 03/31/2017 CRISSY CARR MD Ot 793.89 OTH (ABN) FINDINGS ON RADIOLOGICAL EXAMI 03/31/2017 JUANIS WILSON MD Ot 174.9 MALIGN NEOPL BREAST NOS 03/31/2017 JUANIS WILSON MD Ot V72.83 EXAM PRE-OPERATIVE NEC 03/31/2017 JUANIS WILSON MD Ot V72.84 EXAM PRE-OPERATIVE NOS 03/31/2017 JUANIS WILSON MD Ot V74.8 SCREEN-BACTERIAL DIS NEC 03/31/2017 JUANIS WILSON MD Ot 793.89 OTH (ABN) FINDINGS ON RADIOLOGICAL EXAMI 03/31/2017 JUANIS WILSON MD Ot V10.3 HX OF BREAST MALIGNANCY 03/31/2017 Ot 174.9 MALIGN NEOPL BREAST NOS 03/31/2017 Ot 729.81 SWELLING OF LIMB 03/31/2017 Ot 723.0 CERVICAL SPINAL STENOSIS 03/31/2017 VIANNEY AGUSTIN MD Ot 174.9 MALIGN NEOPL BREAST NOS 03/31/2017 Ot 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 03/31/2017 Ot Z12.31 ENCNTR SCREEN MAMMOGRAM FOR MALIGNANT NE 03/31/2017 WADEMAYDA STUD DAIRY CATTLE FARMER Ot M43.16 SPONDYLOLISTHESIS, LUMBAR REGION 03/31/2017 WADEMAYDA STUD DAIRY CATTLE FARMER Ot M47.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, LUMBAR REGION 03/31/2017 MAYDA OLVERA STUD DAIRY CATTLE FARMER Ot R10.12 LEFT UPPER QUADRANT PAIN 03/31/2017 MAYDA OLVERA STUD DAIRY [employer]ATTLE FARMER Ot R10.32 LEFT LOWER QUADRANT PAIN 03/31/2017 MIKAEL RANDALL DO Ot M54.5 LOW BACK PAIN 03/31/2017 MIKAEL RANDALL DO Ot M54.6 PAIN IN THORACIC SPINE 03/31/2017 BRUNO BUI, CRISSY Finley Ot R07.81 PLEURODYNIA 03/31/2017 VIANNEY AGUSTIN MD Ot M81.0 AGE-RELATED OSTEOPOROSIS W/O CURRENT PAT 03/31/2017 VIANNEY AGUSTIN MD Ot Z12.31 ENCNTR SCREEN MAMMOGRAM FOR MALIGNANT NE 03/31/2017 VIANNEY AGUSTIN MD Ot Z85.3 PERSONAL HISTORY OF MALIGNANT NEOPLASM O 03/31/2017 VIANNEY AGUSTIN MD Ot K57.30 DVRTCLOS OF LG INT W/O PERFORATION OR AB 03/31/2017 VIANNEY AGUSTIN MD Ot M54.5 LOW BACK PAIN 03/31/2017 VIANNEY AGUSTIN MD Ot N28.1 CYST OF KIDNEY, ACQUIRED 03/31/2017 VIANNEY AGUSTIN MD Ot N32.9 BLADDER DISORDER, UNSPECIFIED 03/31/2017 VIANNEY AGUSTIN MD Ot R10.9 UNSPECIFIED ABDOMINAL PAIN 03/31/2017 VIANNEY AGUSTIN MD Ot R91.8 OTHER NONSPECIFIC ABNORMAL FINDING OF [place] 03/31/2017 VIANNEY AGUSTIN MD Ot 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 03/31/2017 VIANNEY AGUSTIN MD Ot E03.9 HYPOTHYROIDISM, UNSPECIFIED 03/31/2017 VIANNEY AGUSTIN MD Ot E11.9 TYPE 2 DIABETES MELLITUS WITHOUT COMPLIC 03/31/2017 VIANNEY AGUSTIN MD Ot E78.5 HYPERLIPIDEMIA, UNSPECIFIED 03/31/2017 VIANNEY AGUSTIN MD Ot I10 ESSENTIAL (PRIMARY) HYPERTENSION 03/31/2017 VIANNEY AGUSTIN MD Ot I25.10 ATHSCL HEART DISEASE OF [place] CORONARY 03/31/2017 VIANNEY AGUSTIN MD Ot 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+] 03/31/2017 VIANNEY AGUSTIN MD Ot Z79.899 OTHER RETIREMENT (CURRENT) DRUG THERAPY 04/01/2017 VIANNEY AGUSTIN MD Ot 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 04/01/2017 VIANNEY AGUSTIN MD Ot E03.9 HYPOTHYROIDISM, UNSPECIFIED 04/01/2017 VIANNEY AGUSTIN MD Ot E11.9 TYPE 2 DIABETES MELLITUS WITHOUT COMPLIC 04/01/2017 VIANNEY AGUSTIN MD Ot E78.5 HYPERLIPIDEMIA, UNSPECIFIED 04/01/2017 VIANNEY GAUSTIN MD Ot I10 ESSENTIAL (PRIMARY) HYPERTENSION 04/01/2017 VIANNEY AGUSTIN MD Ot I25.10 ATHSCL HEART DISEASE OF [place] CORONARY 04/01/2017 VIANNEY AGUSTIN MD Ot 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+] 04/01/2017 VIANNEY AGUSTIN MD Ot Z79.899 OTHER RETIREMENT (CURRENT) DRUG THERAPY 04/12/2017 Ot V72.84 EXAM PRE- OPERATIVE NOS 04/12/2017 Ot 793.89 OTH (ABN) FINDINGS ON RADIOLOGICAL EXAMI 04/12/2017 Ot V76.12 OTH SCREEN MAMMO-MALIGN NEOPLASM OF [place] 04/12/2017 Ot 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 04/12/2017 MAYDA OLVERA STUD DAIRY [employer]ATT[employer] F[employer]ER Ot 793.89 OTH (ABN) FINDINGS ON RADIOLOGICAL EXAMI 04/12/2017 MAYDA OLVERA STUD DAIRY [employer]ATT[employer] FARMER Ot V67.9 FOLLOW-UP EXAM NOS 04/12/2017 CRISSY CARR MD Ot 793.89 OTH (ABN) FINDINGS ON RADIOLOGICAL EXAMI 04/12/2017 JUANIS WILSON MD Ot 174.9 MALIGN NEOPL BREAST NOS 04/12/2017 JUANIS WILSON MD Ot V72.83 EXAM PRE-OPERATIVE NEC 04/12/2017 KATIE BUI, JUANIS Dawson Ot V72.84 EXAM PRE-OPERATIVE NOS 04/12/2017 KATIE BUI, JUANIS Dawson Ot V74.8 SCREEN-BACTERIAL DIS NEC 04/12/2017 KATIE BUI, JUANIS Dawson Ot 793.89 OTH (ABN) FINDINGS ON RADIOLOGICAL EXAMI 04/12/2017 KATIE BUI, JUANIS Dawson Ot V10.3 HX OF BREAST MALIGNANCY 04/12/2017 Ot 174.9 MALIGN NEOPL BREAST NOS 04/12/2017 Ot 729.81 SWELLING OF LIMB 04/12/2017 Ot 723.0 CERVICAL SPINAL STENOSIS 04/12/2017 VIANNEY AGUSTIN MD Ot 174.9 MALIGN NEOPL BREAST NOS 04/12/2017 Ot 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 04/12/2017 Ot Z12.31 ENCNTR SCREEN MAMMOGRAM FOR MALIGNANT NE 04/12/2017 MAYDA OLVERA STUD DAIRY CATT[employer] FARMER Ot M43.16 SPONDYLOLISTHESIS, LUMBAR REGION 04/12/2017 MAYDA OLVERA STUD DAIRY CATT[employer] FARMER Ot M47.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, LUMBAR REGION 04/12/2017 MAYDA OLVERA STUD DAIRY CATTLE FARMER Ot R10.12 LEFT UPPER QUADRANT PAIN 04/12/2017 MAYDA OLVERA STUD DAIRY CATTLE FARMER Ot R10.32 LEFT LOWER QUADRANT PAIN 04/12/2017 MIKAEL RANDALL DO Ot M54.5 LOW BACK PAIN 04/12/2017 MIKAEL RANDALL DO Ot M54.6 PAIN IN THORACIC SPINE 04/12/2017 BRUNO BUI, CRISSY Finley Ot R07.81 PLEURODYNIA 04/12/2017 VIANNEY AGUSTIN MD Ot M81.0 AGE-RELATED OSTEOPOROSIS W/O CURRENT PAT 04/12/2017 VIANNEY AGUSTIN MD Ot Z12.31 ENCNTR SCREEN MAMMOGRAM FOR MALIGNANT NE 04/12/2017 VIANNEY AGUSTIN MD Ot Z85.3 PERSONAL HISTORY OF MALIGNANT NEOPLASM O 04/12/2017 VIANNEY AGUSTIN MD Ot K57.30 DVRTCLOS OF LG INT W/O PERFORATION OR AB 04/12/2017 VIANNEY AGUSTIN MD Ot M54.5 LOW BACK PAIN 04/12/2017 VIANNEY AGUSTIN MD Ot N28.1 CYST OF KIDNEY, ACQUIRED 04/12/2017 VIANNEY AGUSTIN MD Ot N32.9 BLADDER DISORDER, UNSPECIFIED 04/12/2017 VIANNEY AGUSTIN MD Ot R10.9 UNSPECIFIED ABDOMINAL PAIN 04/12/2017 VIANNEY AGUSTIN MD Ot R91.8 OTHER NONSPECIFIC ABNORMAL FINDING OF [place] 04/12/2017 VIANNEY AGUSTIN MD Ot C50.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 OF UPPER-OUTER QUADRANT OF 04/12/2017 VIANNEY AGUSTIN MD Ot E03.9 HYPOTHYROIDISM, UNSPECIFIED 04/12/2017 VIANNEY AGUSITN MD Ot E11.9 TYPE 2 DIABETES MELLITUS WITHOUT COMPLIC 04/12/2017 VIANNEY AGUSTIN MD Ot E78.5 HYPERLIPIDEMIA, UNSPECIFIED 04/12/2017 VIANNEY AGUSTIN MD Ot I10 ESSENTIAL (PRIMARY) HYPERTENSION 04/12/2017 VIANNEY AGUSTIN MD Ot I25.10 ATHSCL HEART DISEASE OF [place] CORONARY 04/12/2017 VIANNEY AGUSTIN MD Ot 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+] 04/12/2017 VIANNEY AGUSTIN MD Ot 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 04/19/2017 Ot V72.84 EXAM PRE- OPERATIVE NOS 04/19/2017 Ot 793.89 OTH (ABN) FINDINGS ON RADIOLOGICAL EXAMI 04/19/2017 Ot V76.12 OTH SCREEN MAMMO-MALIGN NEOPLASM OF [place] 04/19/2017 Ot 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 04/19/2017 MAYDA OLVERA STUD DAIRY CATTLE FARMER Ot 793.89 OTH (ABN) FINDINGS ON RADIOLOGICAL EXAMI 04/19/2017 MAYDA OLVERA STUD DAIRY CATTLE FARMER Ot V67.9 FOLLOW-UP EXAM NOS 04/19/2017 CRISSY CARR MD Ot 793.89 OTH (ABN) FINDINGS ON RADIOLOGICAL EXAMI 04/19/2017 JUANIS WILSON MD Ot 174.9 MALIGN NEOPL BREAST NOS 04/19/2017 JUANIS WILSON MD Ot V72.83 EXAM PRE-OPERATIVE NEC 04/19/2017 JUANIS WILSON MD Ot V72.84 EXAM PRE-OPERATIVE NOS 04/19/2017 JUANIS WILSON MD Ot V74.8 SCREEN-BACTERIAL DIS NEC 04/19/2017 JUANIS WILSON MD Ot 793.89 OTH (ABN) FINDINGS ON RADIOLOGICAL EXAMI 04/19/2017 JUANIS WILSON MD Ot V10.3 HX OF BREAST MALIGNANCY 04/19/2017 Ot 174.9 MALIGN NEOPL BREAST NOS 04/19/2017 Ot 729.81 SWELLING OF LIMB 04/19/2017 Ot 723.0 CERVICAL SPINAL STENOSIS 04/19/2017 VIANNEY AGUSTIN MD Ot 174.9 MALIGN NEOPL BREAST NOS 04/19/2017 Ot 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 04/19/2017 Ot Z12.31 ENCNTR SCREEN MAMMOGRAM FOR MALIGNANT NE 04/19/2017 WADEMAYDA STUD DAIRY CATTLE FARMER Ot M43.16 SPONDYLOLISTHESIS, LUMBAR REGION 04/19/2017 MAYDA OLVERA STUD DAIRY CATTLE FARMER Ot M47.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, LUMBAR REGION 04/19/2017 MAYDA OLVERA STUD DAIRY CATT[employer] FARMER Ot R10.12 LEFT UPPER QUADRANT PAIN 04/19/2017 MAYDA OLVERA STUD DAIRY CATTLE FARMER Ot R10.32 LEFT LOWER QUADRANT PAIN 04/19/2017 MIKAEL RANDALL DO Ot M54.5 LOW BACK PAIN 04/19/2017 MIKAEL RANDALL DO Ot M54.6 PAIN IN THORACIC SPINE 04/19/2017 BRUNO BUI, CRISSY Finley Ot R07.81 PLEURODYNIA 04/19/2017 VIANNEY AGUSTIN MD Ot M81.0 AGE-RELATED OSTEOPOROSIS W/O CURRENT PAT 04/19/2017 VIANNEY AGUSTIN MD Ot Z12.31 ENCNTR SCREEN MAMMOGRAM FOR MALIGNANT NE 04/19/2017 VIANNEY AGUSTIN MD Ot Z85.3 PERSONAL HISTORY OF MALIGNANT NEOPLASM O 04/19/2017 VIANNEY AGUSTIN MD Ot K57.30 DVRTCLOS OF LG INT W/O PERFORATION OR AB 04/19/2017 VIANNEY AGUSTIN MD Ot M54.5 LOW BACK PAIN 04/19/2017 VIANNEY AGUSTIN MD Ot N28.1 CYST OF KIDNEY, ACQUIRED 04/19/2017 VIANNEY AGUSTIN MD Ot N32.9 BLADDER DISORDER, UNSPECIFIED 04/19/2017 VIANNEY AGUSTIN MD Ot R10.9 UNSPECIFIED ABDOMINAL PAIN 04/19/2017 VIANNEY AGUSTIN MD Ot R91.8 OTHER NONSPECIFIC ABNORMAL FINDING OF [place] 04/19/2017 VIANNEY AGUSTIN MD Ot C50.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 OF UPPER-OUTER QUADRANT OF 04/19/2017 VIANNEY AGUSTIN MD Ot E03.9 HYPOTHYROIDISM, UNSPECIFIED 04/19/2017 VIANNEY AGUSTIN MD Ot E11.9 TYPE 2 DIABETES MELLITUS WITHOUT COMPLIC 04/19/2017 VIANNEY AGUSTIN MD Ot E78.5 HYPERLIPIDEMIA, UNSPECIFIED 04/19/2017 VIANNEY AGUSTIN MD Ot I10 ESSENTIAL (PRIMARY) HYPERTENSION 04/19/2017 VIANNEY AGUSTIN MD Ot I25.10 ATHSCL HEART DISEASE OF [place] CORONARY 04/19/2017 VIANNEY AGUSTIN MD Ot 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+] 04/19/2017 VIANNEY AGUSTIN MD Ot 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 04/20/2017 VIANNEY AGUSTIN MD, Ot C50.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 OF UPPER-OUTER QUADRANT OF 04/20/2017 VIANNEY AGUSTIN MD Ot R10.9 UNSPECIFIED ABDOMINAL PAIN 04/20/2017 VIANNEY AGUSTIN MD Ot R91.1 SOLITARY PULMONARY NODULE 04/20/2017 VIANNEY AGUSTIN MD Ot 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] 04/25/2017 VIANNEY AGUSTIN MD, Ot C50.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 OF UPPER-OUTER QUADRANT OF 04/25/2017 VIANNEY AGUSTIN MD Ot E03.9 HYPOTHYROIDISM, UNSPECIFIED 04/25/2017 VIANNEY AGUSTIN MD Ot E11.9 TYPE 2 DIABETES MELLITUS WITHOUT COMPLIC 04/25/2017 VIANNEY AGUSTIN MD Ot E78.5 HYPERLIPIDEMIA, UNSPECIFIED 04/25/2017 VIANNEY AGUSTIN MD Ot I10 ESSENTIAL (PRIMARY) HYPERTENSION 04/25/2017 VIANNEY AGUSTIN MD Ot I25.10 ATHSCL HEART DISEASE OF [place] CORONARY 04/25/2017 VIANNEY AGUSTIN MD Ot 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+] 04/25/2017 VIANNEY AGUSTIN MD, Ot Z79.899 OTHER RETIREMENT (CURRENT) DRUG THERAPY 04/27/2017 VIANNEY AGUSTIN MD Ot K63.89 OTHER SPECIFIED DISEASES OF INTESTINE 04/27/2017 VIANNEY AGUSTIN MD Ot R91.1 SOLITARY PULMONARY NODULE 04/27/2017 VIANNEY AGUSTIN MD Ot 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] 04/27/2017 VIANNEY AGUSTIN MD Ot Z85.3 PERSONAL HISTORY OF MALIGNANT NEOPLASM O 04/28/2017 VIANNEY AGUSTIN MD Ot C50.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 OF UPPER-OUTER QUADRANT OF 04/28/2017 VIANNEY AGUSTIN MD Ot E03.9 HYPOTHYROIDISM, UNSPECIFIED 04/28/2017 VIANNEY AGUSTIN MD Ot E11.9 TYPE 2 DIABETES MELLITUS WITHOUT COMPLIC 04/28/2017 VIANNEY AGUSTIN MD Ot E78.5 HYPERLIPIDEMIA, UNSPECIFIED 04/28/2017 VIANNEY AGUSTIN MD Ot I10 ESSENTIAL (PRIMARY) HYPERTENSION 04/28/2017 VIANNEY AGUSTIN MD Ot I25.10 ATHSCL HEART DISEASE OF [place] CORONARY 04/28/2017 VIANNEY AGUSTIN MD Ot 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] 04/28/2017 VIANNEY AGUSTIN MD Ot 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+] 04/28/2017 VIANNEY AGUSTIN MD Ot 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 04/28/2017 TAMMY SUGGS MD, Ot C50.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 OF UPPER-OUTER QUADRANT OF 04/28/2017 TAMMY SUGGS MD, Ot E03.9 HYPOTHYROIDISM, UNSPECIFIED 04/28/2017 TAMMY SUGGS MD, Ot E11.9 TYPE 2 DIABETES MELLITUS WITHOUT COMPLIC 04/28/2017 TAMMY SUGGS MD, Ot E78.5 HYPERLIPIDEMIA, UNSPECIFIED 04/28/2017 TAMMY SUGGS MD Ot I10 ESSENTIAL (PRIMARY) HYPERTENSION 04/28/2017 TAMMY SUGGS MD, Ot I25.10 ATHSCL HEART DISEASE OF [place] CORONARY 04/28/2017 TAMMY SUGGS MD, Ot 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+] 04/28/2017 TAMMY SUGGS MD, Ot 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 05/05/2017 TAMMY SUGGS MD, Ot C50.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 OF UPPER-OUTER QUADRANT OF 05/05/2017 TAMMY SUGGS MD, Ot E03.9 HYPOTHYROIDISM, UNSPECIFIED 05/05/2017 TAMMY SUGGS MD, Ot E11.9 TYPE 2 DIABETES MELLITUS WITHOUT COMPLIC 05/05/2017 TAMMY SUGGS MD, Ot E78.5 HYPERLIPIDEMIA, UNSPECIFIED 05/05/2017 TAMMY SUGGS MD Ot I10 ESSENTIAL (PRIMARY) HYPERTENSION 05/05/2017 TAMMY SUGGS MD Ot I25.10 ATHSCL HEART DISEASE OF [place] CORONARY 05/05/2017 TAMMY SUGGS MD Ot 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+] 05/05/2017 TAMMY SUGGS MD Ot Z79.899 OTHER RETIREMENT (CURRENT) DRUG THERAPY 05/12/2017 ROSE GOTTLIEB MD, Ot K57.30 DVRTCLOS OF LG INT W/O PERFORATION OR AB 05/12/2017 ROSE GOTTLIEB MD Ot Z01.818 ENCOUNTER FOR OTHER PREPROCEDURAL EXAMIN 05/12/2017 ROSE GOTTLIEB MD Ot K57.30 DVRTCLOS OF LG INT W/O PERFORATION OR AB 05/12/2017 ROSE GOTTLIEB MD Ot Z01.818 ENCOUNTER FOR OTHER PREPROCEDURAL EXAMIN 05/12/2017 ROSE GOTTLIEB MD, Ot K57.30 DVRTCLOS OF LG INT W/O PERFORATION OR AB 05/12/2017 ROSE GOTTLIEB MD Ot Z01.818 ENCOUNTER FOR OTHER PREPROCEDURAL EXAMIN 05/16/2017 ROSE GOTTLIEB MD Ot E03.9 HYPOTHYROIDISM, UNSPECIFIED 05/16/2017 ROSE GOTTLIEB MD Ot E11.9 TYPE 2 DIABETES MELLITUS WITHOUT COMPLIC 05/16/2017 ROSE GOTTLIEB MD Ot E78.00 PURE HYPERCHOLESTEROLEMIA, UNSPECIFIED 05/16/2017 ROSE GOTTLIEB MD Ot I10 ESSENTIAL (PRIMARY) HYPERTENSION 05/16/2017 ROSE GOTTLIEB MD Ot I25.10 ATHSCL HEART DISEASE OF [place] CORONARY 05/16/2017 ROSE GOTTLIEB MD, Ot K57.30 DVRTCLOS OF LG INT W/O PERFORATION OR AB 05/16/2017 ROSE GOTTLIEB MD Ot Z79.4 RETIREMENT (CURRENT) USE OF INSULIN 05/16/2017 ROSE GOTTLIEB MD Ot Z79.899 OTHER RETIREMENT (CURRENT) DRUG THERAPY 05/16/2017 ROSE GOTTLIEB MD Ot Z86.010 PERSONAL HISTORY OF COLONIC POLYPS 05/16/2017 ROSE GOTTLIEB MD Ot Z95.1 PRESENCE OF AORTOCORONARY BYPASS GRAFT 05/17/2017 VIANNEY AGUSTIN MD Ot C50.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 OF UPPER-OUTER QUADRANT OF 05/17/2017 VIANNEY AGUSTIN MD Ot K57.30 DVRTCLOS OF LG INT W/O PERFORATION OR AB 05/17/2017 VIANNEY AGUSTIN MD Ot N28.1 CYST OF KIDNEY, ACQUIRED 05/17/2017 VIANNEY AGUSTIN MD Ot R10.9 UNSPECIFIED ABDOMINAL PAIN 05/17/2017 VIANNEY AGUSTIN MD, Ot R91.1 SOLITARY PULMONARY NODULE 05/17/2017 VIANNEY AGUSTIN MD, Ot 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] 05/17/2017 VIANNEY AGUSTIN MD, Ot K63.89 OTHER SPECIFIED DISEASES OF INTESTINE 05/17/2017 VIANNEY AGUSTIN MD, Ot R91.1 SOLITARY PULMONARY NODULE 05/17/2017 VIANNEY AGUSTIN MD, Ot 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] 05/17/2017 VIANNEY AGUSTIN MD, Ot Z85.3 PERSONAL HISTORY OF MALIGNANT NEOPLASM O 05/25/2017 VIANNEY AGUSTIN MD, Ot C50.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 OF UPPER-OUTER QUADRANT OF 05/25/2017 VIANNEY AGUSTIN MD, Ot K57.30 DVRTCLOS OF LG INT W/O PERFORATION OR AB 05/25/2017 VIANNEY AGUSTIN MD, Ot N28.1 CYST OF KIDNEY, ACQUIRED 05/25/2017 VIANNEY AGUSTIN MD Ot R10.9 UNSPECIFIED ABDOMINAL PAIN 05/25/2017 VIANNEY AGUSTIN MD, Ot R91.1 SOLITARY PULMONARY NODULE 05/25/2017 VIANNEY AGUSTIN MD, Ot 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] 05/30/2017 TAMMY SUGGS MD, Ot C50.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 OF UPPER-OUTER QUADRANT OF 05/30/2017 TAMMY SUGGS MD, Ot E03.9 HYPOTHYROIDISM, UNSPECIFIED 05/30/2017 TAMMY SUGGS MD, Ot E11.9 TYPE 2 DIABETES MELLITUS WITHOUT COMPLIC 05/30/2017 TAMMY SUGGS MD, Ot E78.5 HYPERLIPIDEMIA, UNSPECIFIED 05/30/2017 TAMMY SUGGS MD, Ot I10 ESSENTIAL (PRIMARY) HYPERTENSION 05/30/2017 TAMMY SUGGS MD, Ot I25.10 ATHSCL HEART DISEASE OF [place] CORONARY 05/30/2017 TAMMY SUGGS MD, Ot 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+] 05/30/2017 TAMMY SUGGS MD, Ot 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 05/30/2017 Ot V72.84 EXAM PRE- OPERATIVE NOS 05/30/2017 Ot 793.89 OTH (ABN) FINDINGS ON RADIOLOGICAL EXAMI 05/30/2017 Ot V76.12 OTH SCREEN MAMMO-MALIGN NEOPLASM OF [place] 05/30/2017 Ot 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 05/30/2017 MAYDA OLVERA APRN Ot 793.89 OTH (ABN) FINDINGS ON RADIOLOGICAL EXAMI 05/30/2017 MAYDA OLVERA APRN Ot V67.9 FOLLOW-UP EXAM NOS 05/30/2017 BRUNO BUI, CRISSY Finley Ot 793.89 OTH (ABN) FINDINGS ON RADIOLOGICAL EXAMI 05/30/2017 KATIE BUI, JUANIS Dawson Ot 174.9 MALIGN NEOPL BREAST NOS 05/30/2017 KATIE BUI, JUANIS Dawson Ot V72.83 EXAM PRE-OPERATIVE NEC 05/30/2017 JUANIS WILSON MD Ot V72.84 EXAM PRE-OPERATIVE NOS 05/30/2017 JUANIS WILSON MD Ot V74.8 SCREEN-BACTERIAL DIS NEC 05/30/2017 JUANIS WILSON MD Ot 793.89 OTH (ABN) FINDINGS ON RADIOLOGICAL EXAMI 05/30/2017 JUANIS WILSON MD Ot V10.3 HX OF BREAST MALIGNANCY 05/30/2017 Ot 174.9 MALIGN NEOPL BREAST NOS 05/30/2017 Ot 729.81 SWELLING OF LIMB 05/30/2017 Ot 723.0 CERVICAL SPINAL STENOSIS 05/30/2017 VAMSI BUI, VIANNEY Hayward Ot 174.9 MALIGN NEOPL BREAST NOS 05/30/2017 Ot 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 05/30/2017 Ot Z12.31 ENCNTR SCREEN MAMMOGRAM FOR MALIGNANT NE 05/30/2017 MAYDA OLVERA APRN Ot M43.16 SPONDYLOLISTHESIS, LUMBAR REGION 05/30/2017 MAYDA OLVERA APRN Ot M47.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, LUMBAR REGION 05/30/2017 MAYDA OLVERA APRN Ot R10.12 LEFT UPPER QUADRANT PAIN 05/30/2017 MAYDA OLVERA APRN Ot R10.32 LEFT LOWER QUADRANT PAIN 05/30/2017 MIKAEL RANDALL DO Ot M54.5 LOW BACK PAIN 05/30/2017 MIKAEL RANDALL DO Ot M54.6 PAIN IN THORACIC SPINE 05/30/2017 BRUNO BUI, CRISSY Finley Ot R07.81 PLEURODYNIA 05/30/2017 VIANNEY AGUSTIN MD, Ot M81.0 AGE-RELATED OSTEOPOROSIS W/O CURRENT PAT 05/30/2017 VIANNEY AGUSTIN MD, Ot Z12.31 ENCNTR SCREEN MAMMOGRAM FOR MALIGNANT NE 05/30/2017 VIANNEY AGUSTIN MD, Ot Z85.3 PERSONAL HISTORY OF MALIGNANT NEOPLASM O 05/30/2017 VIANNEY AGUSTIN MD, Ot K57.30 DVRTCLOS OF LG INT W/O PERFORATION OR AB 05/30/2017 VIANNEY AGUSTIN MD, Ot M54.5 LOW BACK PAIN 05/30/2017 VIANNEY AGUSTIN MD, Ot N28.1 CYST OF KIDNEY, ACQUIRED 05/30/2017 VIANNEY AGUSTIN MD, Ot N32.9 BLADDER DISORDER, UNSPECIFIED 05/30/2017 VIANNEY AGUSTIN MD, Ot R10.9 UNSPECIFIED ABDOMINAL PAIN 05/30/2017 VIANNEY AGUSTIN MD Ot R91.8 OTHER NONSPECIFIC ABNORMAL FINDING OF [place] 05/30/2017 VIANNEY AGUSTIN MD Ot C50.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 OF UPPER-OUTER QUADRANT OF 05/30/2017 VIANNEY AGUSTIN MD, Ot K57.30 DVRTCLOS OF LG INT W/O PERFORATION OR AB 05/30/2017 VIANNEY AGUSTIN MD, Ot N28.1 CYST OF KIDNEY, ACQUIRED 05/30/2017 VIANNEY AGUSTIN MD Ot R10.9 UNSPECIFIED ABDOMINAL PAIN 05/30/2017 VIANNEY AGUSTIN MD, Ot R91.1 SOLITARY PULMONARY NODULE 05/30/2017 VIANNEY AGUSTIN MD, Ot 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] 05/30/2017 VIANNEY AGUSTIN MD, Ot C50.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 OF UPPER-OUTER QUADRANT OF 05/30/2017 VIANNEY AGUSTIN MD Ot R10.9 UNSPECIFIED ABDOMINAL PAIN 05/30/2017 VIANNEY AGUSTIN MD Ot R91.1 SOLITARY PULMONARY NODULE 05/30/2017 VIANNEY AGUSTIN MD Ot 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] 05/30/2017 VIANNEY AGUSTIN MD, Ot K63.89 OTHER SPECIFIED DISEASES OF INTESTINE 05/30/2017 VIANNEY AGUSTIN MD Ot R91.1 SOLITARY PULMONARY NODULE 05/30/2017 VIANNEY AGUSTIN MD Ot 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] 05/30/2017 VIANNEY AGUSTIN MD Ot Z85.3 PERSONAL HISTORY OF MALIGNANT NEOPLASM O 05/30/2017 TAMMY SUGGS MD, Ot C50.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 OF UPPER-OUTER QUADRANT OF 05/30/2017 TAMMY SUGGS MD, Ot E03.9 HYPOTHYROIDISM, UNSPECIFIED 05/30/2017 TAMMY SUGGS MD, Ot E11.9 TYPE 2 DIABETES MELLITUS WITHOUT COMPLIC 05/30/2017 TAMMY SUGGS MD, Ot E78.5 HYPERLIPIDEMIA, UNSPECIFIED 05/30/2017 TAMMY SUGGS MD, Ot I10 ESSENTIAL (PRIMARY) HYPERTENSION 05/30/2017 TAMMY SUGGS MD, Ot I25.10 ATHSCL HEART DISEASE OF [place] CORONARY 05/30/2017 TAMMY SUGGS MD, Ot 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+] 05/30/2017 TAMMY SUGGS MD, Ot 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 05/30/2017 VAMSI BUI, VIANNEY [place] Ot K63.89 OTHER SPECIFIED DISEASES OF INTESTINE 05/30/2017 VAMSI BUI, VIANNEY [place] Ot R91.1 SOLITARY PULMONARY NODULE 05/30/2017 VIANNEY AGUSTIN MD Ot 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] 05/30/2017 VIANNEY AGUSTIN MD Ot Z85.3 PERSONAL HISTORY OF MALIGNANT NEOPLASM O 07/02/2017 TAMMY SUGGS MD, Ot C50.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 OF UPPER-OUTER QUADRANT OF 07/02/2017 TAMMY SUGGS MD, Ot E03.9 HYPOTHYROIDISM, UNSPECIFIED 07/02/2017 TAMMY SUGGS MD, Ot E11.9 TYPE 2 DIABETES MELLITUS WITHOUT COMPLIC 07/02/2017 TAMMY SUGGS MD, Ot E78.5 HYPERLIPIDEMIA, UNSPECIFIED 07/02/2017 TAMMY SUGGS MD, Ot I10 ESSENTIAL (PRIMARY) HYPERTENSION 07/02/2017 TAMMY SUGGS MD, Ot I25.10 ATHSCL HEART DISEASE OF [place] CORONARY 07/02/2017 TAMMY SUGGS MD, Ot K21.9 GASTRO-ESOPHAGEAL REFLUX DISEASE WITHOUT 07/02/2017 TAMMY SUGGS MD, Ot 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, CERVICAL REGION 07/02/2017 TAMMY SUGGS MD, Ot M48.06 SPINAL STENOSIS, LUMBAR REGION 07/02/2017 ATMMY SUGGS MD, Ot M54.5 LOW BACK PAIN 07/02/2017 TAMMY SUGGS MD, Ot M81.0 AGE-RELATED OSTEOPOROSIS W/O CURRENT PAT 07/02/2017 TAMMY SUGGS MD, Ot R10.32 LEFT LOWER QUADRANT PAIN 07/02/2017 TAMMY SUGGS MD, Ot 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+] 07/02/2017 TAMMY SUGGS MD, Ot Z79.811 INSPECTION CLERK (CURRENT) USE OF AROMATASE INH 07/02/2017 TAMMY SUGGS MD, Ot 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 07/07/2017 TAMMY SUGGS MD, Ot C50.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 OF UPPER-OUTER QUADRANT OF 07/07/2017 TAMMY SUGGS MD, Ot E03.9 HYPOTHYROIDISM, UNSPECIFIED 07/07/2017 TAMMY SUGGS MD, Ot E11.9 TYPE 2 DIABETES MELLITUS WITHOUT COMPLIC 07/07/2017 TAMMY SUGGS MD, Ot E78.5 HYPERLIPIDEMIA, UNSPECIFIED 07/07/2017 TAMMY SUGGS MD, Ot I10 ESSENTIAL (PRIMARY) HYPERTENSION 07/07/2017 TAMMY SUGGS MD, Ot I25.10 ATHSCL HEART DISEASE OF [place] CORONARY 07/07/2017 TAMMY SUGGS MD, Ot K21.9 GASTRO-ESOPHAGEAL REFLUX DISEASE WITHOUT 07/07/2017 TAMMY SUGGS MD, Ot 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 Results Test Result Range Complete urinalysis with reflex to culture - 06/26/16 17:20 Urine color determination YELLOW NRG Urine clarity determination CLEAR NRG Urine pH measurement by test strip 6.5 5-9 Specific gravity of urine by test strip 1.010 1.016- 1.022 Urine protein assay by test strip, semi-quantitative [...] culture - 06/26/16 17:20 Bacterial urine culture [id number] NRG COLONY COUNT 10,000/ML - 100,000/ML NRG FTX;REPORTABLE SENSITIVITY REPORTED AT 1528, 9-25 NR Bacterial susceptibility panel - 06/26/16 17:20 Gentamicin susceptibility test by minimum inhibitory concentration < = NRG Trimethoprim/sulfamethoxazole susceptibility test by minimum inhibitoryconcentration <= NRG Ampicillin susceptibility test by minimum inhibitory concentration > = NRG Tobramycin susceptibility test by minimum inhibitory concentration < = NRG Cefazolin susceptibility test by minimum inhibitory concentration < = NRG Ceftriaxone susceptibility test by minimum inhibitory concentration <= NRG Ampicillin/sulbactam susceptibility test by minimum inhibitory concentration 4 NRG Piperacillin/tazobactam susceptibility test by minimum inhibitory concentration <= NRG Ciprofloxacin susceptibility test by minimum inhibitory concentration <= NRG Meropenem susceptibility test by minimum inhibitory concentration < = NRG Nitrofurantoin susceptibility test by minimum inhibitory concentration <= NRG Aztreonam susceptibility test by minimum inhibitory concentration < = NRG Extended spectrum beta lactamase (ESBL) producing bacteria susceptibility test by minimum inhibitory concentration - NR Complete blood count (CBC) with automated white blood cell (WBC) differential - 06/26/16 18:12 Blood leukocytes automated count (number/volume) 8.5 10*3/uL 4.3-11.0 Blood erythrocytes automated count (number/volume) 4.11 10*6/uL 4.35-5.85 Venous blood hemoglobin measurement (mass/volume) 12.7 [...] Automated blood platelet mean volume measurement 9.8 [foz_us] 7.4-10.4 Automated blood neutrophils/100 leukocytes 60 % [...] Serum or plasma sodium measurement (moles/volume) 140 mmol/L 135-145 Serum or plasma potassium measurement (moles/volume) 3.7 mmol/L 3.6-5.0 Serum or plasma chloride measurement (moles/volume) 108 mmol/L 98-107 Carbon dioxide 20 mmol/L 21-32 Serum or plasma anion gap determination (moles/volume) 12 mmol/L 5-14 Serum or plasma urea nitrogen measurement (mass/volume) 18 mg/dL 7-18 Serum or plasma creatinine measurement (mass/volume) 0.72 mg/dL 0.60-1.30 Serum or plasma urea nitrogen/creatinine mass ratio 25 NRG Serum or plasma creatinine measurement with calculation of estimated glomerular filtration rate > NRG Serum or plasma glucose measurement (mass/volume) 134 mg/dL 70-105 Serum or plasma calcium measurement (mass/volume) 10.1 mg/dL 8.5-10.1 Serum or plasma total bilirubin measurement [...] or plasma amylase measurement (enzymatic activity/volume) 40 U /L 25-125 Lipase - 06/26/16 18:12 Lipase 19 U/L 8-78 Bacterial blood culture - 06/26/16 18:12 Bacterial blood culture NG NRG Bacterial blood culture - 06/26/16 18:55 Bacterial blood culture NG NRG Complete blood count (CBC) with automated white blood cell (WBC) differential - 09/15/17 13:00 Blood leukocytes automated count (number/volume) 8.3 10*3/uL 4.3-11.0 Blood erythrocytes automated count (number/volume) 4.10 10*6/uL 4.35-5.85 Venous blood hemoglobin measurement (mass/volume) 12.6 g/dL 11.5-16.0 Blood hematocrit (volume fraction) 38 % 35-52 Automated erythrocyte mean corpuscular volume 92 [foz_us] 80-99 Automated erythrocyte mean corpuscular hemoglobin (mass per erythrocyte) 31 pg 25-34 Automated erythrocyte mean corpuscular hemoglobin concentration measurement ( mass/volume) 33 g/dL 32-36 Automated erythrocyte distribution width ratio 13.9 % 10.0-14.5 Automated blood platelet count (count/volume) 175 10*3/uL 130-400 Automated blood platelet mean volume measurement 10.7 [foz_us] 7.4-10.4 Automated blood neutrophils/100 leukocytes 64 % 42-75 Automated blood lymphocytes/100 leukocytes 22 % 12-44 Blood monocytes/100 leukocytes 10 % 0-12 Automated blood eosinophils/100 leukocytes 3 % 0-10 Automated blood basophils/100 leukocytes 1 % 0-10 Blood neutrophils automated count (number/volume) 5.3 10*3 1.8-7.8 Blood lymphocytes automated count (number/volume) 1.8 10*3 1.0-4.0 Blood monocytes automated count (number/volume) 0.8 10*3 0.0-1.0 Automated eosinophil count 0.3 10*3/uL 0.0-0.3 Automated blood basophil count (count/volume) 0.1 10*3/uL 0.0-0.1 Complete urinalysis with reflex to culture - 09/15/17 13:00 Urine color determination YELLOW NRG Urine clarity determination CLEAR NRG Urine pH measurement by test strip 7 5-9 Specific gravity of urine by test strip 1.015 1.016- 1.022 Urine protein assay by test strip, semi-quantitative 1+ NEGATIVE Urine glucose detection by automated test strip NEGATIVE NEGATIVE Erythrocytes detection in urine sediment by light microscopy NEGATIVE NEGATIVE Urine ketones detection by automated test strip 1+ NEGATIVE Urine nitrite detection by test strip NEGATIVE NEGATIVE Urine total bilirubin detection by test strip NEGATIVE NEGATIVE Urine urobilinogen measurement by automated test strip (mass/volume) NORMAL NORMAL Urine leukocyte esterase detection by dipstick NEGATIVE NEGATIVE Automated urine sediment erythrocyte count by microscopy (number/high power field) NONE NRG Automated urine sediment leukocyte count by microscopy (number/high power field ) [HPF] NRG Bacteria detection in urine sediment by light microscopy NEGATIVE NRG Crystals detection in urine sediment by light microscopy NONE NRG Casts detection in urine sediment by light microscopy PRESENT NRG Mucus detection in urine sediment by light microscopy SMALL NRG Complete urinalysis with reflex to culture NO NRG Hyaline casts detection in urine sediment by light microscopy RARE NRG Comprehensive metabolic panel - 09/15/17 13:00 Serum or plasma sodium measurement (moles/volume) 138 mmol/L 135-145 Serum or plasma potassium measurement (moles/volume) 4.1 mmol/L 3.6-5.0 Serum or plasma chloride measurement (moles/volume) 105 mmol/L 98-107 Carbon dioxide 22 mmol/L 21-32 Serum or plasma anion gap determination (moles/volume) 11 mmol/L 5-14 Serum or plasma urea nitrogen measurement (mass/volume) 22 mg/dL 7-18 Serum or plasma creatinine measurement (mass/volume) 0.72 mg/dL 0.60-1.30 Serum or plasma urea nitrogen/creatinine mass ratio 31 NRG Serum or plasma creatinine measurement with calculation of estimated glomerular filtration rate > NRG Serum or plasma glucose measurement (mass/volume) 153 mg/dL 70-105 Serum or plasma calcium measurement (mass/volume) 9.8 mg/dL 8.5-10.1 Serum or plasma total bilirubin measurement (mass/volume) 0.5 mg/dL 0.1-1.0 Serum or plasma alkaline phosphatase measurement (enzymatic activity/volume) 45 U/L 40-136 Serum or plasma aspartate aminotransferase measurement (enzymatic activity/ volume) 18 U/L 5-34 Serum or plasma alanine aminotransferase measurement (enzymatic activity/volume ) 13 U/L 0-55 Serum or plasma protein measurement (mass/volume) 6.6 g/dL 6.4-8.2 Serum or plasma albumin measurement (mass/volume) 3.9 g/dL 3.2-4.5 PT panel in platelet poor plasma by coagulation assay - 09/15/17 13:25 Prothrombin time (PT) in platelet poor plasma by coagulation assay 14.0 s 12.2-14.7 INR in platelet poor plasma or blood by coagulation assay 1.1 0.8-1.4 Activated partial thromboplastin time (aPTT) in platelet poor plasma bycoagulation assay - 09/15/17 13:25 Activated partial thromboplastin time (aPTT) in platelet poor plasma bycoagulation assay 26 s 24-35 Encounters ACCT No. Visit Date/Time Discharge Status Pt. Type Provider Facility Loc./Unit Complaint [id number] 07/03/2017 00:55:00 07/03/2017 23:59:59 CLS Preadmit IFEANYI BUI, TAMMY [facility] [id number] 05/30/2017 13:44:00 07/02/2017 00:01:00 DIS Outpatient IFEANYI BUI, TAMMY [facility] ONC [id number] 05/16/2017 11:12:00 05/16/2017 14:52:00 DIS Outpatient ROSE GOTTLIEB MD [facility] ENDO HISTORY COLONIC DIVETICULOSIS ON CT [id number] 05/12/2017 05:46:00 05/12/2017 14:26:00 DIS Outpatient ROSE GOTTLIEB MD [facility] PREOP HISTORY OF COLONIC DIVERTICULOSIS ON CT [id number] 03/31/2017 11:03:00 04/28/2017 10:46:00 DIS Outpatient VIANNEY AGUSTIN MD [facility] ONC [id number] 04/26/2017 09:13:00 04/26/2017 23:59:59 CLS Outpatient VIANNEY AGUSTIN MD [facility] RAD LUNG NODULE R91.1 [id number] 04/22/2017 09:17:00 04/22/2017 23:59:59 CLS Outpatient VIANNEY AGUSTIN MD [facility] RAD LUNG NODULE R91.1 [id number] 04/19/2017 07:35:00 04/19/2017 23:59:59 CLS Outpatient VIANNEY AGUSTIN MD [facility] RAD LUNG NODULE R91.1 [id number] 02/21/2017 12:46:00 02/21/2017 13:43:00 DIS Outpatient LUANNE BARROS MD [facility] CARD M53.3 [id number] 12/31/2016 10:27:00 02/02/2017 00:01:00 DIS Outpatient VIANNEY AGUSTIN MD [facility] ONC [id number] 01/03/2017 13:18:00 01/03/2017 14:14:00 DIS Outpatient LUANNE BARROS MD [facility] CARD SACROCOCCYGEAL DISORDER [id number] 12/30/2016 11:30:00 12/30/2016 23:59:59 CLS Outpatient VIANNEY AGUSTIN MD [facility] RAD LOW BACK PAIN, ABD PAIN [id number] 11/18/2016 09:57:00 11/18/2016 23:59:59 CLS Outpatient VIANNEY AGUSTIN MD [facility] RAD SCREENING,ACUTE BACK PAIN [id number] 10/01/2016 13:05:00 10/01/2016 23:59:59 CLS Outpatient CRISSY CARR MD [facility] RAD LT RIB PAIN [id number] 05/06/2016 11:04:00 08/04/2016 00:01:00 DIS Outpatient VIANNEY AGUSTIN MD [facility] ONC [id number] 07/09/2016 16:47:00 07/09/2016 23:59:59 CLS Outpatient PRAKASH DO MIKAEL Augustin [facility] RAD THORACIC AND LUMBAR PAIN [id number] 07/02/2016 12:05:00 07/02/2016 23:59:59 CLS Outpatient MAYDA OLVERA APRN [facility] RAD SEVERE LEFT SIDED PAIN [id number] 06/26/2016 17:12:00 06/26/2016 19:42:00 DIS Emergency LARRY WELLS DO [facility] ER BACK PAIN [id number] 02/05/2016 10:53:00 05/05/2016 10:47:00 DIS Outpatient VIANNEY AGUSTIN MD [facility] ONC [id number] 11/06/2015 10:15:00 11/12/2015 00:01:00 DIS Outpatient VIANNEY AGUSTIN MD [facility] ONC [id number] 05/15/2015 13:30:00 07/02/2015 00:01:00 DIS Outpatient VIANNEY AGUSTIN MD [facility] ONC [id number] 02/12/2015 13:21:00 04/16/2015 00:01:00 DIS Outpatient VIANNEY AGUSTIN MD [facility] ONC [id number] 01/21/2015 11:32:00 01/21/2015 23:59:59 CLS Outpatient VIANNEY AGUSTIN MD [facility] CARD BREAST CANCER [id number] 10/16/2014 11:05:00 01/14/2015 00:01:00 DIS Outpatient VIANNEY AGUSTIN MD [facility] ONC [id number] 06/19/2014 09:45:00 09/17/2014 00:01:00 DIS Outpatient VIANNEY AGUSTIN MD [facility] ONC [id number] 07/12/2014 09:05:00 07/12/2014 23:59:59 CLS Outpatient JUANIS WILSON MD [facility] RAD F/U 4 MONTH [id number] 02/20/2014 09:49:00 03/18/2014 00:01:00 DIS Outpatient VIANNEY AGUSTIN MD [facility] ONC [id number] 12/26/2013 07:23:00 12/27/2013 10:30:00 DIS Outpatient JUANIS WILSON MD [facility] RAD BREAST CA [id number] 12/25/2013 15:18:00 12/25/2013 23:59:59 CLS Outpatient JUANIS WILSON MD [facility] PREOP RIGHT BREAST CANCER [id number] 12/13/2013 13:20:00 12/13/2013 23:59:59 CLS Outpatient CRISSY CARR MD [facility] RAD 6 MO FOLLOW UP [id number] 06/14/2013 13:50:00 06/14/2013 23:59:59 CLS Outpatient MAYDA OLVERA APRN [facility] RAD SIX MONTH FOLLOW-UP [id number] 09/15/2017 13:35:00 ACT Inpatient PAVAN YEUNG DO [facility] 4TH R HIP FRACTURE [id number] 07/15/2015 11:19:00 Document Registration [id number] 12/10/2014 11:02:00 Document Registration [id number] 12/05/2014 13:56:00 Document Registration [id number] 01/04/2013 14:26:00 Document Registration [id number] 12/19/2012 09:47:00 Document Registration [id number] 05/04/2012 06:38:00 Document Registration [id number] 05/03/2012 08:17:00 Document Registration [id number] 10/07/2011 09:00:00 Document Registration
[2017-09-15 15:10] VITALS: BP 205/89
[2017-09-15] MEDS ORDERED: NS IV 1000 ML 1,000 ML ONE (15:20)
[2017-09-15] MEDS ORDERED: MELO15TA39 PO (15:30)
[2017-09-15] MEDS ORDERED: LETR2.5T5 PO (15:30)
[2017-09-15] MEDS ORDERED: AMLO10TA2 PO (15:30)
[2017-09-15] MEDS ORDERED: LEFL20TA18 PO (15:30)
[2017-09-15] MEDS ORDERED: SENN-140 PO (15:30)
[2017-09-15] MEDS ORDERED: ASPI325T32 PO (15:30)
[2017-09-15] MEDS ORDERED: SIMV40TA4 PO (15:30)
[2017-09-15] MEDS ORDERED: FURO20TA4 PO (15:30)
[2017-09-15] MEDS ORDERED: LEVO100T7 PO (15:30)
[2017-09-15] MEDS ORDERED: GLIP-30 PO (15:30)
[2017-09-15] MEDS ORDERED: SITA100T12 PO (15:30)
[2017-09-15] MEDS ORDERED: METO-370 PO (15:30)
[2017-09-15] MEDS ORDERED: FESO4TAB PO (15:30)
[2017-09-15] MEDS ORDERED: POTA10TA10 PO (15:30)
[2017-09-15] MEDS ORDERED: LOSA100T28 PO (15:30)
[2017-09-15] MEDS ORDERED: CHOL500044 PO (15:37)
[2017-09-15] MEDS ORDERED: OMEG1CAP58 PO (15:37)
[2017-09-15] MEDS ORDERED: ASPI-983 PO (15:37)
[2017-09-15] MEDS ORDERED: CALC-676 PO (15:37)
[2017-09-15] MEDS ORDERED: LACT-34 PO (15:37)
[2017-09-15] MEDS ORDERED: OMEG-105 PO (15:40)
[2017-09-15] MEDS ORDERED: VITA400C60 PO (15:40)
[2017-09-15] MEDS ORDERED: morphine INJ 10 MG/ML 1ML (SYR OR VIAL) ONE (15:40)
[2017-09-15] MEDS ORDERED: MEPERIDINE (DEMEROL) INJ 50 MG/ML ONE (15:41)
--- NOTE | 2017-09-15 16:10 | Consultation-Cardiology ---
HPI-Cardiology Cardiology Consultation: Date of Consultation 09/15/17 Date of Admission Attending Physician Evie Browning DO Admitting Physician Fede Verduzco MD Consulting Physician Augustin HOOD MD HPI: Time Seen by Provider: 15:45 Chief Complaint: Perioperative cardiovascular risk assessment This is a 89-year-old lady who had a mechanical fall. She has previous history of CABG. No recent stress test or coronary angiography. She has good functional capacity. She denies any significant chest pain or shortness of breath. Review of Systems-Cardiology Review of Systems Constitutional: No As described under HPI, No no symptoms reported, No chills, No fever, No lightheadedness, No malaise, No tiredness, No weight loss, No weight gain, No other Eyes: No As described under HPI, No no symptoms reported, No blindness, No blurred vision, No contact lenses, No drainage, No decreased acuity, No foreign body sensation, No glasses, No inflammation, No pain, No photophobia, No previous injury, No shadows, No tunnel vision, No other, No vision change Ears/Nose/Throat: No As described under HPI, No no symptoms reported, No chronic hearing loss, No epistaxis, No ear discharge, No ear pain, No loose teeth, No mouth pain, No mouth swelling, No nasal drainage, No nose pain, No recent hearing loss, No throat pain, No throat swelling, No ulcerations, No other Respiratory: No no symptoms reported, No As described under HPI, No cough, No orthopnea, No shortness of breath, No SOB with excertion, No SOB at rest, No stridor, No wheezing, No other Cardiovascular: No no symptoms reported, No As described under HPI, No chest pain, No edema, No irregular heart rate, No lightheadedness, No palpitations, No syncope, No other Gastrointestinal: No no symptoms reported, No As described under HPI, No abdomen distended, No abdominal pain, No blood streaked bowels, No constipation , No diarrhea, No difficulty swallowing, No nausea, No poor appetite, No poor fluid intake, No rectal bleeding, No vomiting, No other, No nausea/vomiting/ diarrhea, No stool coloration changes Genitourinary: No no symptoms reported, No As described under HPI, No burning, No dysuria, No discharge, No frequency, No flank pain, No hematuria, No incontinence, No pain, No urgency, No other, No urine frequency changes, No urine coloration changes Musculoskeletal: joint pain Skin: No no symptoms reported, No As described under HPI, No change in color, No change in hair/nails, No dryness, No lesions, No lumps, No rash, No other, No skin related problems, No ulcerations, No rash on exposed areas, No ulcerations on exposed areas Psychiatric/Neurological: No no symptoms reported, No As described under HPI, No anxiety, No depression, No emotional problems, No headache, No numbness, No pre-existing deficit, No seizure, No tingling, No tremors, No weakness, No other , No focal weakness, No syncope Hematologic: No no symptoms reported, No As described under HPI, No anemia, No blood clots, No easy bleeding, No easy bruising, No swollen glands, No other, No bleeding abnormalities NOP-Anxhjb-Oxaujr Hx Patient Social History Alcohol Use: Denies Use Recreational Drug Use: No Smoking Status: Never a Smoker 2nd Hand Smoke Exposure: No Recent Foreign Travel: No Recent Infectious Disease Expo: No Hospitalization with Isolation: Denies Immunizations Up To Date Tetanus Booster (TDap): Unknown Date of Pneumonia Vaccine: Jun 25, 2015 Date of Influenza Vaccine: Jul 04, 2013 Past Medical History PMH As described under Assessment. Family Medical History Family History: Alzheimer's disease Arthritis Cardiovascular disease Cataracts Colon cancer Completed stroke Allergies and Home Medications Allergies Coded Allergies: atorvastatin (Unverified Allergy, Unknown, 05/16/17) azithromycin (Unverified Allergy, Unknown, RASH, 12/25/13) Home Medications Amlodipine Besylate 10 Mg Tablet, 10 MG PO HS, (Reported) Aspirin 81 Mg Tablet.dr, 81 MG PO HS, (Reported) Calcium Carbonate/Vitamin D3 1 Each Tablet, 1 TAB PO DAILY, (Reported) Cholecalciferol (Vitamin D3) 5,000 Unit Tablet, 5,000 UNIT PO DAILY, (Reported) Furosemide 20 Mg Tablet, 20 MG PO DAILY PRN for SWELLING, (Reported) Glipizide 5 Mg Tab.er.24, 5 MG PO HS, (Reported) Lactose-Reduced Food 237 Ml Liquid, 237 ML PO DAILY, (Reported) Leflunomide 20 Mg Tablet, 20 MG PO DAILY, (Reported) Letrozole 2.5 Mg Tablet, 2.5 MG PO DAILY, (Reported) Levothyroxine Sodium 100 Mcg Tablet, 100 MCG PO DAILY, (Reported) Losartan Potassium 100 Mg Tablet, 100 MG PO DAILY, (Reported) Meloxicam 15 Mg Tablet, 15 MG PO DAILY, (Reported) Metoprolol Succinate 50 Mg Tab.er.24h, 50 MG PO DAILY, (Reported) [place]-3 Acid Ethyl Esters 1 Gm Capsule, 1 GM PO DAILY, (Reported) Potassium Chloride 10 Meq Tablet.er, 10 MEQ PO DAILY PRN for WHEN TAKING FUROSEMIDE, (Reported) Sennosides 8.6 Mg Tablet, 8.6 MG PO DAILY, (Reported) Simvastatin 40 Mg Tablet, 40 MG PO HS, (Reported) Sitagliptin Phosphate 100 Mg Tablet, 100 MG PO DAILY, (Reported) Vitamin E Acetate 400 Unit Capsule, 400 UNIT PO DAILY, (Reported) Physical Exam-Cardiology Physical Exam Vital Signs/I&O Vital Sign - Last 12Hours 09/16/17 09/16/17 00:00 04:00 Temp 97.9 96.8 Pulse 57 58 Resp 17 20 B/P (MAP) 176/76 (109) 132/75 (94) Pulse Ox 97 97 O2 Delivery Nasal Cannula Nasal Cannula O2 Flow Rate 2.00 2.00 Intake and Output 09/16/17 00:00 Intake Total 1050 ml Output Total 270 ml Balance 780 ml Capillary Refill : Less Than 3 Seconds Constitutional: No appears stated age, No AAO x 3, No apparent distress, No PERRL, No well-developed, No well-nourished, No other HEENT: No PERRL, No normal ENT inspection, No TMs normal, No pharynx normal, No scleral icterus (R), No scleral icterus (L), No pale conjunctivae (R), No pale conjunctivae (L), No photophobia, No TM abnormal (R), No TM abnormal (L), No pharyngeal erythema, No tonsillar exudate, No other, No discharge, No EOMI, No hearing is well preserved, No hard of hearing, No oral hygience is good, No ulceration, No xanthelasmas are seen Neck: No non-tender, No full range of motion, No supple, No normal inspection, No carotid bruit, No limited range of motion, No lymphadenopathy (R), No lymphadenopathy (L), No tender lateral, No tender midline, No thyromegaly, No other, No carotid pulses are 2 + bilaterally, No with good upstrokes Respiratory: No accessory muscle use, No respiratory distress, No chest tender , No chest expansion is symmetric, No chest is bilaterally symmetric, No lungs clear to percussion, No lungs clear to auscultation, No crackles, No rhonchi, No rales, No stridor, No wheezing, No pleural rub, No other Cardiovascular: No regular rate-rhythm, No irregularly irregular, No extra beats, No parasternal heave is noted, No JVD, No edema, No bradycardia, No tachycardia, No point of maximal impulse, No cardiac thrills are palpable, No S1 and S2, No gallop/S3, No gallop/S4, No diastolic murmur, No systolic murmur, No friction rub, No click, No other Gastrointestinal: No tender, No soft, No round, No distended, No pulsatile mass , No organomegaly, No guarding, No rebound, No tenderness, No hernia, No mass, No audible bowel sounds, No abnormal bowel sounds, No abdominal bruits, No spleenomegaly, No other Rectal: deferred Extremities: other (right hip fracture) Neurologic/Psychiatric: No drink waiter II-XII nml as tested, No no motor/sensory deficits, No alert, No normal mood/affect, No oriented x 3, No abnormal cerebellar tests, No abnormal drink waiter II-XII, No abnormal gait, No aphasia, No EOM palsy, No facial droop, No motor weakness, No sensory deficit, No depressed affect, No disoriented x 3, No other, No grossly intact, No power is 5/5 both on sides Skin: No normal color, No warm/dry, No cyanosis, No cool, No diaphoresis, No damp, No ecchymosis, No jaundice, No mottled, No pallor, No rash, No tattoos/ piercings, No ulcerations, No rash on exposed areas, No ulcerations on exposed areas, No other Data Review Labs Laboratory Tests 09/15/17 13:00: White Blood Count 8.3, Red Blood Count 4.10L, Hemoglobin 12.6, Hematocrit 38, Mean Corpuscular Volume 92, Mean Corpuscular Hemoglobin 31, Mean Corpuscular Hemoglobin Concent 33, Red Cell Distribution Width 13.9, Platelet Count 175, Mean Platelet Volume 10.7H, Neutrophils (%) (Auto) 64, Lymphocytes (%) (Auto) 22 , Monocytes (%) (Auto) 10, Eosinophils (%) (Auto) 3, Basophils (%) (Auto) 1, Neutrophils # (Auto) 5.3, Lymphocytes # (Auto) 1.8, Monocytes # (Auto) 0.8, Eosinophils # (Auto) 0.3, Basophils # (Auto) 0.1, Urine Color YELLOW, Urine Clarity CLEAR, Urine pH 7, Urine Specific [place] 1.015L, Urine Protein 1+H, Urine Glucose (UA) NEGATIVE, Urine Ketones 1+H, Urine Nitrite NEGATIVE, Urine Bilirubin NEGATIVE, Urine Urobilinogen NORMAL, Urine Leukocyte Esterase NEGATIVE , Urine RBC (Auto) NEGATIVE, Urine RBC NONE, Urine WBC 0-2, Urine Crystals NONE , Urine Bacteria NEGATIVE, Urine Casts PRESENT, Urine Hyaline Casts RARE, Urine Mucus SMALLH, Urine Culture Indicated NO, Sodium Level 138, Potassium Level 4.1 , Chloride Level 105, Carbon Dioxide Level 22, Anion Gap 11, Blood Urea Nitrogen 22H, Creatinine 0.72, Estimat Glomerular Filtration Rate > 60, BUN/ Creatinine Ratio 31, Glucose Level 153H, Calcium Level 9.8, Total Bilirubin 0.5 , Aspartate Amino Transf (AST/SGOT) 18, Alanine Aminotransferase (ALT/SGPT) 13, Alkaline Phosphatase 45, Total Protein 6.6, Albumin 3.9 09/15/17 13:25: Prothrombin Time 14.0, INR Comment 1.1, Activated Partial Thromboplast Time 26 09/16/17 05:30: White Blood Count 7.5, Red Blood Count 2.97L, Hemoglobin 9.1#L, Hematocrit 28L, Mean Corpuscular Volume 94, Mean Corpuscular Hemoglobin 31, Mean Corpuscular Hemoglobin Concent 33, Red Cell Distribution Width 13.7, Platelet Count 145, Mean Platelet Volume 10.2, Sodium Level 141, Potassium Level 4.3, Chloride Level 109H, Carbon Dioxide Level 27, Anion Gap 5, Blood Urea Nitrogen 16, Creatinine 0.68, Estimat Glomerular Filtration Rate > 60, BUN/Creatinine Ratio 24, Glucose Level 128H, Calcium Level 8.2L, Total Bilirubin 0.3, Aspartate Amino Transf (AST/SGOT) 16, Alanine Aminotransferase (ALT/SGPT) 12, Alkaline Phosphatase 35L, Total Protein 4.6L, Albumin 2.9L ECG Impression ECG Initial ECG Rhythm: Normal Sinus Comment LVH with strain pattern. Nonspecific IVCD. A/P-Cardiology Assessment/Admission Diagnosis Right hip fracture, Preop cardiac risk assessment, CABG DM HTN Plan - Patient follows with Dr Lambert. CABG thirty years ago. Does not remember when stress test was last done. No symptoms. Good functional capacity. Based on the above, She will be considered at Intermediate risk for geetha- operative major adverse cardiac events undergoing a moderate risk non-cardiac surgery. No cardiac contraindication for the above mentioned surgery. CABG- continue same treatment as outpatient post surgery. DM - defer to primary team. HTN - stable. Thank you for your consultation. Please call me if you have any questions. Deshawn Hood MD, FACP, FACC, FSCAI, FHRS, CCDS Interventional Cardiology Cardiac Electrophysiology Vascular Medicine and Endovascular Interventions Augustin HOOD MD Sep 15, 2017 16:10
[2017-09-15] MEDS ORDERED: ONDANSETRON 4 MG/2 ML (SDV) Z0FRAN IV PRN (16:15)
[2017-09-15] MEDS ORDERED: fentaNYL INJECTION 100 MCG/2 ML AMP IV PRN (16:15)
[2017-09-15] MEDS ORDERED: CATHETER FLUSH 10 ML SYR IV PRN (16:15)
[2017-09-15] MEDS ORDERED: NS IV 1000 ML 1,000 ML IV SCH (16:15)
[2017-09-15] MEDS ORDERED: ROCURONIUM 50 MG/5 ML (ZEMURON) VIAL IV ONE (17:04)
[2017-09-15] MEDS ORDERED: SEVOFLURANE (ULTANE) 15 ML INHAL SOLN ONE ×6 (17:04→19:02)
[2017-09-15] MEDS ORDERED: proPOfol 200 MG/20 ML (DIPRIVAN) VIAL IV ONE (17:04)
[2017-09-15] MEDS ORDERED: LIDOCAINE PF 2% 5 ML (XYLOCAINE) VIAL ONE (17:04)
[2017-09-15] MEDS ORDERED: fentaNYL INJECTION 100 MCG/2 ML AMP ONE (17:05)
[2017-09-15] MEDS ORDERED: MIDAZOLAM 2 MG/2 ML (VERSED) VIAL ONE (17:05)
--- NOTE | 2017-09-15 17:32 | Consultation ---
History of Present Illness History of Present Illness Patient Consulted On(danni/time) 09/15/17 17:25 Date Seen by Provider: Sep 15, 2017 Time Seen by Provider: 17:25 Reason for Visit: Right hip fracture History of Present Illness Ms. York is a very pleasant 89 y/o female that presents with CC of acute onset of severe Right hip pain secondary to sustaining a mechanical GLF onto her Right hip. She was subsequently unable to bear weight/ambulate on her RLE. She was transferred to [facility] ED for evaluation/treatment. Upon presentation imaging studies of the pelvis/right femur demonstrated a displaced intertrochanteric fracture of the Right proximal femur. She was subsequently admitted to the medicine service and orthopedics was consulted for definitive management of her injury. She denies head trauma/LOC, denies neck pain. She denies syncope/seizure activity; denies cp/sob; also denies other injuries to her extremities; she denies antecedent hip pain; also denies f/c/ns or other constitutional symptoms. She has no other musculoskeletal complaints. Allergies and Home Medications Allergies Coded Allergies: atorvastatin (Unverified Allergy, Unknown, 05/16/17) azithromycin (Unverified Allergy, Unknown, RASH, 12/25/13) Home Medications Amlodipine Besylate 10 Mg Tablet, 10 MG PO HS, (Reported) Aspirin 81 Mg Tablet.dr, 81 MG PO HS, (Reported) Calcium Carbonate/Vitamin D3 1 Each Tablet, 1 TAB PO DAILY, (Reported) Cholecalciferol (Vitamin D3) 5,000 Unit Tablet, 5,000 UNIT PO DAILY, (Reported) Furosemide 20 Mg Tablet, 20 MG PO DAILY PRN for SWELLING, (Reported) Glipizide 5 Mg Tab.er.24, 5 MG PO HS, (Reported) Lactose-Reduced Food 237 Ml Liquid, 237 ML PO DAILY, (Reported) Leflunomide 20 Mg Tablet, 20 MG PO DAILY, (Reported) Letrozole 2.5 Mg Tablet, 2.5 MG PO DAILY, (Reported) Levothyroxine Sodium 100 Mcg Tablet, 100 MCG PO DAILY, (Reported) Losartan Potassium 100 Mg Tablet, 100 MG PO DAILY, (Reported) Meloxicam 15 Mg Tablet, 15 MG PO DAILY, (Reported) Metoprolol Succinate 50 Mg Tab.er.24h, 50 MG PO DAILY, (Reported) [place]-3 Acid Ethyl Esters 1 Gm Capsule, 1 GM PO DAILY, (Reported) Potassium Chloride 10 Meq Tablet.er, 10 MEQ PO DAILY PRN for WHEN TAKING FUROSEMIDE, (Reported) Sennosides 8.6 Mg Tablet, 8.6 MG PO DAILY, (Reported) Simvastatin 40 Mg Tablet, 40 MG PO HS, (Reported) Sitagliptin Phosphate 100 Mg Tablet, 100 MG PO DAILY, (Reported) Vitamin E Acetate 400 Unit Capsule, 400 UNIT PO DAILY, (Reported) Past Oiezaqg-Iexffb-Hlbqgh Hx Patient Social History Alcohol Use: Denies Use Recreational Drug Use: No Smoking Status: Never a Smoker 2nd Hand Smoke Exposure: No Recent Foreign Travel: No Contact w/Someone Who Travel: No Recent Infectious Disease Expo: No Recent Hopitalizations: No Physical Abuse: No Sexual Abuse: No Immunizations Up To Date Tetanus Booster (TDap): Unknown Date of Pneumonia Vaccine: Jun 25, 2015 Date of Influenza Vaccine: Jul 04, 2013 Seasonal Allergies Seasonal Allergies: No Surgeries History of Surgeries: Yes (left breast lesion removal, OVARIAN CYST.CABG 5 VESSEL ; CATARACT SURGERY) Surgeries: Breast, Cardiac, CABG, Eye Surgery, Oophorectomy, Open Heart Surgery Respiratory History of Respiratory Disorde: Yes Respiratory Disorders: Pneumonia Cardiovascular History of Cardiac Disorders: Yes (CABG 5 VESSEL) Cardiac Disorders: Coronary Artery Disease, High Cholesterol, Hypertension Neurological History of Neurological Disord: No Reproductive System Hx Reproductive Disorders: Yes (ovarian cyst) Female Reproductive Disorders: Ovarian Cyst DIRECTOR OF FOOD AND NUTRITION History: Menopausal Genitourinary Genitourinary Disorders: Kidney Infection, Kidney Stones, UTI-Chronic Gastrointestinal History of Gastrointestinal Di: Yes Gastrointestinal Disorders: Gastroesophageal Reflux, Chronic Constipation, Diverticulosis, Hemorrhoids, Polyps Musculoskeletal History of Musculoskeletal Dis: Yes (khaphoplasty) Musculoskeletal Disorders: Degenerate Disk Disease, Osteoporosis, Arthritis, Rheumatoid Arthritis, Chronic Back Pain, Fractures Endocrine History of Endocrine Disorders: Yes Endocrine Disorders: Hypothyroidsim, Diabetes, Non-Insulin dep HEENT History of HEENT Disorders: Yes HEENT Disorders: Cataract, Tinnitis Hearing Impairment: Hard of Hearing Cancer History of Cancer: Yes Cancer: Breast Type of Tx Receive: Surgical Intervention Psychosocial History of Psychiatric Problem: Yes Behavioral Health Disorders: Sleep Difficulties Suicide Risk Score: 0 Integumentary History of Skin or Integumenta: No Blood Transfusions History of Blood Disorders: No Adverse Reaction to a Blood Tr: No Family Medical History Family Medial History: Alcoholism Alzheimer's disease Arthritis Cardiovascular disease Cataracts Colon cancer Completed stroke Deafness or hearing loss Dementia Diabetes mellitus Fibrocystic disease of breast Hypercholesterolemia Hypertension Kidney disease Myocardial infarction Osteoporosis Psychosocial problem Thyroid disease Visual disorder Review of Systems-General Constitutional: no symptoms reported Respiratory: no symptoms reported Cardiovascular: no symptoms reported Gastrointestinal: no symptoms reported Genitourinary: no symptoms reported Musculoskeletal: other (Severe Right hip pain) Skin: no symptoms reported Psychiatric/Neurological: No Symptoms Reported Physical Exam-General Problems Physical Exam Vital Signs Vital Sign - Last 12Hours 09/15/17 13:20 Temp 97.1 Pulse 61 Resp 12 B/P (MAP) 219/89 (132) Pulse Ox 94 O2 Delivery Room Air O2 Flow Rate 2.00 Capillary Refill : Less Than 3 Seconds Eyes: Bilateral Eye Normal Inspection, Bilateral Eye PERRL, Bilateral Eye EOMI HEENT: normal ENT inspection Neck: non-tender, full range of motion, supple Respiratory: no respiratory distress, no accessory muscle use Cardiovascular: normal peripheral pulses, regular rate, rhythm Peripheral Pulses: 2+ Dorsalis Pedis (R), 2+ Left Dors-Pedis (L) Gastrointestinal: non tender, soft Extremities: other (RLE: flexed/externally rotated at the hip; pain in the hip with any attempt at motion; no ecchymosis, skin intact, no open wounds, all compartments soft/NT, foot well perfused, motor/sensation grossly intact) Neurologic/Psychiatric: roller maker II-XII nml as tested, no motor/sensory deficits Skin: normal color, warm/dry Assessment/Plan Assessment/Plan Admission Diagnosis/Plan 89 y/o female s/p mechanical GLF onto Right hip Pt sustained an unstable intertrochanteric fracture of the Right proximal femur. This injury will require operative fixation/stabilization. Pt to remain NPO Will plan to proceed to OR this evening for surgery. I have discussed the nature of the injury and the treatment options with the patient in detail, including the prognosis, natural history, risks, benefits, potential complications and expected outcomes. All of her questions have been answered to her satisfaction. She has given informed written consent to proceed as planned. Post-op plan will include: Pain control VTE prophylaxis Mobilization OOB with PT/OT, WBAT RLE Placement planning: pt will need rehab/SNF facility after hospital d/c GABE HERNANDEZ DO Sep 15, 2017 17:32
[2017-09-15] MEDS ORDERED: LACTATED RINGERS 1,000 ML IV PRN (18:47)
[2017-09-15] MEDS ORDERED: morphine INJ 10 MG/ML 1ML (SYR OR VIAL) IVP PRN (19:00)
[2017-09-15] MEDS ORDERED: ONDANSETRON 4 MG/2 ML (SDV) Z0FRAN IVP PRN (19:00)
[2017-09-15] MEDS ORDERED: HYDROmorphone (DILAUDID) 2 MG/ML VIAL IVP PRN (19:00)
[2017-09-15] MEDS ORDERED: ceFAZolin INJECTION 1,000 MG in NS (IVPB) 50 ML IV NR (19:15)
[2017-09-15] MEDS ORDERED: BUPIVACAINE 0.5% 30 ML (SENSORCAINE) VIAL ONE (19:39)
--- NOTE | 2017-09-15 19:51 | Progress Note-Post Operative ---
Post-Operative Progess Note Surgeon (s)/Conference Center Manager (s) Surgeon GABE HERNANDEZ DO Conference Center Manager: Sathya Wilson PA-C Pre-Operative Diagnosis Intertrochanteric fracture Right proximal femur Post-Operative Diagnosis Same Procedure & Operative Findings Date of Procedure 09/15/17 Procedure Performed/Findings Closed manipulation/placement of cephalomedullary nail Right femur Anesthesia Type General Estimated Blood Loss Estimated blood loss (mL): 50 Specimens/Packing Specimens Removed None GABE HERNANDEZ DO Sep 15, 2017 19:51
--- NOTE | 2017-09-15 20:05 | Diagnostic Imaging Report ---
INDICATION: Fracture. Fluoroscopy was visualized. Total fluoroscopy time one minute 55 seconds during treatment of proximal femoral fracture. Following hardware placement the alignment appeared anatomic. IMPRESSION: Limited intraoperative spot radiographs suggest anatomic alignment was achieved during treatment of hip fracture. Dictated by: Dictated on workstation # [id number]
[2017-09-15 21:25] VITALS: BP 177/77
[2017-09-15] MEDS: NS IV 1000 ML 1,000 ML IV SCH (23:15)
[2017-09-16] VITALS: BP 176/76
[2017-09-16] MEDS: ceFAZolin INJECTION 1,000 MG in NS (IVPB) 50 ML IV SCH ×3 (02:12→20:34)
[2017-09-16 04:00] VITALS: BP 132/75
[2017-09-16] MEDS: NS IV 1000 ML 1,000 ML IV SCH ×3 (04:32→20:13)
[2017-09-16 05:39] LABS: MEAN PLATELET VOLUME 10.2 FL (7.4-10.4); RED BLOOD COUNT 2.97 10^6/uL (4.35-5.85); RED CELL DISTRIBUTION WIDTH 13.7 % (10.0-14.5); WHITE BLOOD COUNT 7.5 10^3/uL (4.3-11.0)
[2017-09-16 08:00] VITALS: BP 136/64
[2017-09-16] MEDS ORDERED: ACETAMINOPHEN 500 MG TAB (TYLENOL) PO PRN (09:15)
--- NOTE | 2017-09-16 09:37 | Physical Therapy Evaluation ---
PT Evaluation-General Medical Diagnosis Admission Date Sep 15, 2017 at 13:35 Medical Diagnosis: right hip fracture Onset Date: Sep 15, 2017 Therapy Diagnosis Therapy Diagnosis: generalized weakness/debility Height/Weight Height (Feet): 5 Height (Inches): 2.00 Weight (Pounds): 136 Weight (Ounces): 0.0 Precautions Precautions/Isolations: Fall Prevention Weight Bear Status Right Lower Extremity: Right Weight Bearing/Tolerated Left Lower Extremity: Left Full Weight Bearing Referral Physician: Smooth Reason for Referral: Evaluation/Treatment Medical History Pertinent Medical History: CABG, CAD, HTN Current History s/p fall while leaning over from lift chair to retrieve 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 Reviewed History: Yes Social History Home: Single Level Current Living Status: Alone Entry Into Home: Stairs With Railing PT Steps Into Home: 2 Prior/Core FIM Prior Level of Function Functional [place] Measure 0=Not Assessed/NA 4=Minimal Assistance 1=Total Assistance 5=Supervision or Setup 2=Maximal Assistance 6=Modified [place] 3=Moderate Assistance 7=Complete [place] Bed Mobility: 7 Transfers (B,C,W/C) (FIM): 7 Gait: 7 PT Evaluation-Current Subjective Patient agrees to PT. She declined pain medication due to does not like how it makes her feel. Pain Numeric Pain Scale: 5-Moderate Pain Location: Right Location Body Site: Hip Pain Description: Acute Pt/Family Goals return to home Objective Patient Orientation: Normal For Age Problem Solving: Good Attachments: Oxygen (3L), [place] Catheter, IV ROM/Strength ROM Lower Extremities right LE limited due to pain, however, WFL left LE WFL Strength Lower Extremities left knee flexion/extension 3+/5; hip flexion 3+/5; DF/PF 4/5 right knee flexion/extension 3/5; hip flexion NT; DF/PF 4/5 Integumentary/Posture Integumentary refer to nursing notes Bowel Incontinence: No Bladder Incontinence: Medrano Cath Posture slight trunk flexed posture in stand due to pain Neuromuscular (Tone, Coordination, Reflexes) grossly intact Sensory Vision: Wears Glasses Hearing: Impaired Sensation Right Lower Extremit: Intact Sensation Left Lower Extremity: Intact Transfers Functional [place] Measure 0=Not Assessed/NA 4=Minimal Assistance 1=Total Assistance 5=Supervision or Setup 2=Maximal Assistance 6=Modified [place] 3=Moderate Assistance 7=Complete [place] Transfers (B, C, W/C) (FIM): 2 Scootin Rollin Supine to/from Sit: 2 Sit to/from Stand: 3 bed t/f WC(FIM only if WC use): 3 Gait Mode of Locomotion: Walk Anticipated Mode of Locomotion: Walk Gait (FIM): 1 Distance (FIM): 1=up to 49 ft Distance: 5' Gait Level of Assist: 3 Gait Persons Needed: 1 Gait Assistive Device: FWW Comments/Gait Description flexed trunk and knee posture with antalgic gait sequence Balance Sitting Static: Normal Sitting Dynamic: Normal Standing Static: Fair Standing Dynamic: Fair Assessment/Needs 89 y.o. female, will benefit from skilled PT to address functional strength and mobility to improve current LOF. From a PT standpoint, patient would benefit from ARU to ensure safe return to home as maximum LOF. Rehab Potential: Good PT Detention Goals Detention Goals PT Detention Goals Time Frame: Sep 30, 2017 Transfers (B,C,W/C) (FIM): 6 Gait (FIM): 6 Gait distance (FIM): 3=150 ft Distance: 150' Gait Level of Assist: 6 Gait Assistive Device: FWW Stairs (FIM): 5 # of Steps: 4 Stairs Level Of Assist: 5 household PT Plan Problem List Problem List: Activity Tolerance, Functional Strength, Gait Treatment/Plan Treatment Plan: Continue Plan of Care Treatment Plan: Bed Mobility, Education, Functional Activity [place], Functional Strength, Gait, Safety, Therapeutic Exercise, Transfers Treatment Duration: Sep 30, 2017 Frequency: 11 times per week Estimated Hrs Per Day: 1 hour per day Patient and/or Family Agrees t: Yes Safety Risks/Education Patient Education: Gait Training Teaching Recipient: Patient, Family Teaching Methods: Demonstration, Discussion Response to Teaching: Verbalize Understanding, Return Demonstration Discharge Recommendations Therapy D/C Recommendations: Acute Rehab, Physical Therapy Home Care Equpiment Recommendations-D/C: Front Wheeled Walker Time/GCodes Time In: 820 Time Out: 843 Total Billed Treatment Time: 23 Total Billed Treatment 1 visit EVHighC 23 min BASIM RICHARDS PT Sep 16, 2017 09:37
[2017-09-16 09:57] LABS: ALANINE AMINOTRANSFERASE 12 U/L (0-55); ALBUMIN 2.9 GM/DL (3.2-4.5); ANION GAP 5 MMOL/L (5-14); ASPARTATE AMINO TRANSFERASE 16 U/L (5-34); BILIRUBIN,TOTAL 0.3 MG/DL (0.1-1.0); BLOOD UREA NITROGEN 16 MG/DL (7-18); BUN/CREATININE RATIO 24; CALCIUM 8.2 MG/DL (8.5-10.1); CARBON DIOXIDE 27 MMOL/L (21-32); CHLORIDE 109 MMOL/L (98-107); CREATININE SERUM 0.68 MG/DL (0.60-1.30); GFR ESTIMATED > 60; GLUCOSE 128 MG/DL (70-105); POTASSIUM 4.3 MMOL/L (3.6-5.0); SODIUM 141 MMOL/L (135-145); TOTAL PROTEIN 4.6 GM/DL (6.4-8.2)
[2017-09-16] MEDS ORDERED: KCL 10 MEQ TAB (MICRO K) PO PRN (10:00)
[2017-09-16] MEDS ORDERED: FUROSEMIDE 20 MG (LASIX) TAB PO PRN (10:00)
--- NOTE | 2017-09-16 10:07 | Cardiology Progress Note ---
Cardiology SOAP Progress Note Subjective: Status post-hip surgery. No cardiac complaints. Objective: I&O/Vital Signs Vital Sign - Last 12Hours 09/16/17 09/16/17 00:00 04:00 Temp 97.9 96.8 Pulse 57 58 Resp 17 20 B/P (MAP) 176/76 (109) 132/75 (94) Pulse Ox 97 97 O2 Delivery Nasal Cannula Nasal Cannula O2 Flow Rate 2.00 2.00 Intake and Output 09/16/17 00:00 Intake Total 1050 ml Output Total 270 ml Balance 780 ml Weight (Pounds): 136 Weight (Ounces): 0.0 Weight (Calculated Kilograms): [id number] Constitutional: No appears stated age, No AAO x 3, No apparent distress, No PERRL, No well-developed, No well-nourished, No other Respiratory: No accessory muscle use, No respiratory distress, No chest tender , No chest expansion is symmetric, No chest is bilaterally symmetric, No lungs clear to percussion, No lungs clear to auscultation, No crackles, No rhonchi, No rales, No stridor, No wheezing, No pleural rub, No other Cardiovascular: No regular rate-rhythm, No irregularly irregular, No extra beats, No parasternal heave is noted, No JVD, No edema, No bradycardia, No tachycardia, No point of maximal impulse, No cardiac thrills are palpable, No S1 and S2, No gallop/S3, No gallop/S4, No diastolic murmur, No systolic murmur, No friction rub, No click, No other Gastrointestional: No tender, No soft, No round, No distended, No pulsatile mass, No organomegaly, No guarding, No rebound, No tenderness, No hernia, No mass, No audible bowel sounds, No abnormal bowel sounds, No abdominal bruits, No spleenomegaly, No other Extremities: No normal range of motion, No non-tender, No normal inspection, No pedal edema, No calf tenderness, No normal capillary refill, No pelvis stable , No calf tenderness, No inflammation, No pedal edema, No slow capillary refill , No swelling, No other, No abrasion, No clubbing, No cyanosis, No ecchymosis, No laceration, No no lower extremity edema bilateral, No significant edema, No tenderness, No wound Neurologic/Psychiatric: No secretary book keeper II-XII nml as tested, No no motor/sensory deficits, No alert, No normal mood/affect, No oriented x 3, No abnormal cerebellar tests, No abnormal secretary book keeper II-XII, No abnormal gait, No aphasia, No EOM palsy, No facial droop, No motor weakness, No sensory deficit, No depressed affect, No disoriented x 3, No other, No grossly intact, No power is 5/5 both on sides Skin: No normal color, No warm/dry, No cyanosis, No cool, No diaphoresis, No damp, No ecchymosis, No jaundice, No mottled, No pallor, No rash, No tattoos/ piercings, No ulcerations, No rash on exposed areas, No ulcerations on exposed areas, No other Results/Procedures: Labs Laboratory Tests 09/15/17 13:00: White Blood Count 8.3, Red Blood Count 4.10L, Hemoglobin 12.6, Hematocrit 38, Mean Corpuscular Volume 92, Mean Corpuscular Hemoglobin 31, Mean Corpuscular Hemoglobin Concent 33, Red Cell Distribution Width 13.9, Platelet Count 175, Mean Platelet Volume 10.7H, Neutrophils (%) (Auto) 64, Lymphocytes (%) (Auto) 22 , Monocytes (%) (Auto) 10, Eosinophils (%) (Auto) 3, Basophils (%) (Auto) 1, Neutrophils # (Auto) 5.3, Lymphocytes # (Auto) 1.8, Monocytes # (Auto) 0.8, Eosinophils # (Auto) 0.3, Basophils # (Auto) 0.1, Urine Color YELLOW, Urine Clarity CLEAR, Urine pH 7, Urine Specific [place] 1.015L, Urine Protein 1+H, Urine Glucose (UA) NEGATIVE, Urine Ketones 1+H, Urine Nitrite NEGATIVE, Urine Bilirubin NEGATIVE, Urine Urobilinogen NORMAL, Urine Leukocyte Esterase NEGATIVE , Urine RBC (Auto) NEGATIVE, Urine RBC NONE, Urine WBC 0-2, Urine Crystals NONE , Urine Bacteria NEGATIVE, Urine Casts PRESENT, Urine Hyaline Casts RARE, Urine Mucus SMALLH, Urine Culture Indicated NO, Sodium Level 138, Potassium Level 4.1 , Chloride Level 105, Carbon Dioxide Level 22, Anion Gap 11, Blood Urea Nitrogen 22H, Creatinine 0.72, Estimat Glomerular Filtration Rate > 60, BUN/ Creatinine Ratio 31, Glucose Level 153H, Calcium Level 9.8, Total Bilirubin 0.5 , Aspartate Amino Transf (AST/SGOT) 18, Alanine Aminotransferase (ALT/SGPT) 13, Alkaline Phosphatase 45, Total Protein 6.6, Albumin 3.9 09/15/17 13:25: Prothrombin Time 14.0, INR Comment 1.1, Activated Partial Thromboplast Time 26 09/16/17 05:30: White Blood Count 7.5, Red Blood Count 2.97L, Hemoglobin 9.1#L, Hematocrit 28L, Mean Corpuscular Volume 94, Mean Corpuscular Hemoglobin 31, Mean Corpuscular Hemoglobin Concent 33, Red Cell Distribution Width 13.7, Platelet Count 145, Mean Platelet Volume 10.2, Sodium Level 141, Potassium Level 4.3, Chloride Level 109H, Carbon Dioxide Level 27, Anion Gap 5, Blood Urea Nitrogen 16, Creatinine 0.68, Estimat Glomerular Filtration Rate > 60, BUN/Creatinine Ratio 24, Glucose Level 128H, Calcium Level 8.2L, Total Bilirubin 0.3, Aspartate Amino Transf (AST/SGOT) 16, Alanine Aminotransferase (ALT/SGPT) 12, Alkaline Phosphatase 35L, Total Protein 4.6L, Albumin 2.9L A/P: Assessment/Dx: Right hip fracture, CABG DM HTN Plan: Status post-hip surgery yesterday. Doing well. No cardiac complaints. CABG-patient was restarted on aspirin, beta jess, angiotensin receptor jess. Stable. DM - defer to primary team. HTN - stable. Thank you for your consultation. Please call me if you have any questions. Deshawn Hood MD, FACP, FACC, FSCAI, FHRS, CCDS Interventional Cardiology Cardiac Electrophysiology Vascular Medicine and Endovascular Interventions Augustin HOOD MD Sep 16, 2017 10:07
--- NOTE | 2017-09-16 10:42 | Progress Note (SOAP) ---
Subjective Date Seen by Provider: Sep 16, 2017 Time Seen by Provider: 10:37 Subjective/Events-last exam Pt SHELLY, OOB in chair eating breakfast, alert/oriented, pain controlled, no adverse overnight event, doing well, no complaints Objective Exam Vital Signs Date Time Temp Pulse Resp B/P (MAP) Pulse Ox O2 Delivery O2 Flow Rate FiO2 09/16/17 04:00 96.8 58 20 132/75 (94) 97 Nasal Cannula 2.00 09/16/17 00:00 97.9 57 17 176/76 (109) 97 Nasal Cannula 2.00 09/15/17 22:31 Nasal Cannula 3.00 09/15/17 21:25 97.4 59 16 177/77 (110) 95 Nasal Cannula 2.00 09/15/17 21:15 Nasal Cannula 3.00 09/15/17 18:49 Room Air 09/15/17 15:10 98.8 60 18 205/89 (127) 96 Nasal Cannula 2.00 09/15/17 13:20 98 Nasal Cannula 2.00 09/15/17 13:20 97.1 61 12 219/89 (132) 94 Room Air I & O 09/16/17 07:00 Intake Total 1250 ml Output Total 570 ml Balance 680 ml Capillary Refill : Less Than 3 SecondsLess Than 3 Seconds General Appearance: No Apparent Distress Respiratory: No Accessory Muscle Use, No Respiratory Distress Cardiovascular: Regular Rate, Rhythm Peripheral Pulses: 2+ Dorsalis Pedis (R), 2+ Left Dors-Pedis (L) Gastrointestinal: non tender, soft Extremity: Other (RLE: dressings c/d/i, all compartments soft, motor/sensation grossly intact, foot well perfused.) Results Lab Laboratory Tests 09/15/17 13:00: White Blood Count 8.3, Red Blood Count 4.10L, Hemoglobin 12.6, Hematocrit 38, Mean Corpuscular Volume 92, Mean Corpuscular Hemoglobin 31, Mean Corpuscular Hemoglobin Concent 33, Red Cell Distribution Width 13.9, Platelet Count 175, Mean Platelet Volume 10.7H, Neutrophils (%) (Auto) 64, Lymphocytes (%) (Auto) 22 , Monocytes (%) (Auto) 10, Eosinophils (%) (Auto) 3, Basophils (%) (Auto) 1, Neutrophils # (Auto) 5.3, Lymphocytes # (Auto) 1.8, Monocytes # (Auto) 0.8, Eosinophils # (Auto) 0.3, Basophils # (Auto) 0.1, Urine Color YELLOW, Urine Clarity CLEAR, Urine pH 7, Urine Specific [place] 1.015L, Urine Protein 1+H, Urine Glucose (UA) NEGATIVE, Urine Ketones 1+H, Urine Nitrite NEGATIVE, Urine Bilirubin NEGATIVE, Urine Urobilinogen NORMAL, Urine Leukocyte Esterase NEGATIVE , Urine RBC (Auto) NEGATIVE, Urine RBC NONE, Urine WBC 0-2, Urine Crystals NONE , Urine Bacteria NEGATIVE, Urine Casts PRESENT, Urine Hyaline Casts RARE, Urine Mucus SMALLH, Urine Culture Indicated NO, Sodium Level 138, Potassium Level 4.1 , Chloride Level 105, Carbon Dioxide Level 22, Anion Gap 11, Blood Urea Nitrogen 22H, Creatinine 0.72, Estimat Glomerular Filtration Rate > 60, BUN/ Creatinine Ratio 31, Glucose Level 153H, Calcium Level 9.8, Total Bilirubin 0.5 , Aspartate Amino Transf (AST/SGOT) 18, Alanine Aminotransferase (ALT/SGPT) 13, Alkaline Phosphatase 45, Total Protein 6.6, Albumin 3.9 09/15/17 13:25: Prothrombin Time 14.0, INR Comment 1.1, Activated Partial Thromboplast Time 26 09/16/17 05:30: White Blood Count 7.5, Red Blood Count 2.97L, Hemoglobin 9.1#L, Hematocrit 28L, Mean Corpuscular Volume 94, Mean Corpuscular Hemoglobin 31, Mean Corpuscular Hemoglobin Concent 33, Red Cell Distribution Width 13.7, Platelet Count 145, Mean Platelet Volume 10.2, Sodium Level 141, Potassium Level 4.3, Chloride Level 109H, Carbon Dioxide Level 27, Anion Gap 5, Blood Urea Nitrogen 16, Creatinine 0.68, Estimat Glomerular Filtration Rate > 60, BUN/Creatinine Ratio 24, Glucose Level 128H, Calcium Level 8.2L, Total Bilirubin 0.3, Aspartate Amino Transf (AST/SGOT) 16, Alanine Aminotransferase (ALT/SGPT) 12, Alkaline Phosphatase 35L, Total Protein 4.6L, Albumin 2.9L Assessment/Plan Assessment/Plan Assess & Plan/Chief Complaint 89 y/o female s/p IMN Right femur for unstable intertrochanteric fracture, POD # 1 Orthopedically stable VSSAF, labs stable Mobilize in PT/OT daily, WBAT RLE Pain control OK to restart plavix, will not add additional anticoagulant secondary to bleeding risk SCDs D/C planning: case management for placement Clinical Quality Measures DVT/VTE Risk/Contraindication: Risk Factor Score Per Nursin RFS Level Per Nursing on Admit: 4+=Very High GABE HERNANDEZ DO Sep 16, 2017 10:42
[2017-09-16] MEDS: LINAGLIPTIN (TRADJENTA) 5 MG TABLET PO SCH (10:48)
[2017-09-16] MEDS: IRON SUCROSE INJECTION 200 MG in NS (IVPB) 100 ML IV SCH (10:48)
--- NOTE | 2017-09-16 11:17 | History & Physical-Hospitalist ---
HPI History of Present Illness: HPI/Chief Complaint CC: Right hip fracture HPI: This is a 89yoWF pt of Dr. Verduzco's with hx of colon ca, DM, HTN, and CAD that presented to hospital ER after fall at home resulting in a hip fracture. She had an uncomplicated repair by Dr. Noel Rebollar. integration specialist: Pt's regular diet was only for dinner, this will be changed PO pain meds requested did not want narcotics Patient Interview: Pt was informed that she will have a non-narcotic pain meds. This was discussed with the family as they wished to not have her on a regular regimen of narcotics. Pt had peanut brittle and jalapeno jelly on her tray. Pt states the peanut brittle was for me Pt does not remember Dr. Noel Rebollar but confirms PCP as Dr. Verduzco Physical exam stable. Lungs sound perfect Pt states that in 1999, she had a quintuple bypass surgery Pt was encouraged to use IS Pt states she constipates easily but has been using BM meds regularly. Breakfast was requested and I informed that pt that her diet is being changed so she can have breakfast Family asked how mobile she can be and urged the pt to ease into everything Scribed by Nessa Rudd under direct supervision of Dr. Evie Yeung. Source: patient Exam Limitations: no limitations Date Seen 09/16/17 Time Seen by Provider: 10:45 Attending Physician Evie Yeung DO PCP Fede Verduzco MD Referring Physician Date of Admission Sep 15, 2017 at 13:35 Home Medications & Allergies Home Medications Reviewed patient Home Medication Reconciliation Form Allergies Allergies Coded Allergies atorvastatin (Unverified Allergy, Unknown, 05/16/17) azithromycin (Unverified Allergy, Unknown, RASH, 12/25/13) Past Czoofmg-[id number]-Cxemoj Hx Patient Social History Marrital Status: Employed/Student: retired Alcohol Use: Denies Use Recreational Drug Use: No Smoking Status: Never a Smoker 2nd Hand Smoke Exposure: No Physical Abuse Screen: No Sexual Abuse: No Recent Foreign Travel: No Contact w/other who traveled: No Recent Hopitalizations: No Recent Infectious Disease Expo: No Immunizations Up To Date Tetanus Booster (TDap): Unknown Date of Pneumonia Vaccine: Jun 25, 2015 Date of Influenza Vaccine: Jul 04, 2017 Seasonal Allergies Seasonal Allergies: No Surgeries Yes (left breast lesion removal, OVARIAN CYST.CABG 5 VESSEL ; CATARACT SURGERY) Breast, Cardiac, CABG, Eye Surgery, Oophorectomy, Open Heart Surgery Respiratory Yes COPD Cardiovascular Yes (CABG 5 VESSEL) Coronary Artery Disease, High Cholesterol, Hypertension Neurological No Reproductive System Hx Reproductive Disorders: Yes (ovarian cyst) Female Reproductive Disorders: Ovarian Cyst C S S REPRESENTATIVE History: Menopausal Genitourinary Kidney Infection, Kidney Stones, UTI-Chronic Gastrointestinal Yes Gastroesophageal Reflux, Chronic Constipation, Diverticulosis, Hemorrhoids, Polyps Musculoskeletal Yes (khaphoplasty) Degenerate Disk Disease, Osteoporosis, Arthritis, Rheumatoid Arthritis, Chronic Back Pain, Fractures Endocrine History of Endocrine Disorders: Yes Endocrine Disorders: Hypothyroidsim, Diabetes, Non-Insulin dep HEENT History of HEENT Disorders: Yes HEENT Disorders: Cataract, Tinnitis Hearing Impairment: Hard of Hearing Cancer Yes Breast Type of Treatment: Surgical Intervention Psychosocial History of Psychiatric Problem: Yes Behavioral Health Disorders: Sleep Difficulties Integumentary History of Skin or Integumenta: No Blood Transfusions History of Blood Disorders: No Adverse Reaction to a Blood Tr: No Family Medical History Family Hx: Alcoholism Alzheimer's disease Arthritis Cardiovascular disease Cataracts Colon cancer Completed stroke Deafness or hearing loss Dementia Diabetes mellitus Fibrocystic disease of breast Hypercholesterolemia Hypertension Kidney disease Myocardial infarction Osteoporosis Psychosocial problem Thyroid disease Visual disorder Review of Systems Constitutional: see HPI EENTM: no symptoms reported Respiratory: no symptoms reported Cardiovascular: no symptoms reported Gastrointestinal: no symptoms reported Genitourinary: no symptoms reported Musculoskeletal: joint pain Skin: no symptoms reported Psychiatric/Neurological: No Symptoms Reported All Other Systems Reviewed Negative Unless Noted: Yes Physical Exam Physical Exam Vital Signs Vital Sign - Last 12Hours 09/15/17 13:20 Temp 97.1 Pulse 61 Resp 12 B/P (MAP) 219/89 (132) Pulse Ox 94 O2 Delivery Room Air O2 Flow Rate 2.00 Capillary Refill : Less Than 3 SecondsLess Than 3 Seconds General Appearance: No Apparent Distress, WD/WN, Chronically ill, Obese, Other (TYONEK) Eyes: Bilateral Eye Normal Inspection, Bilateral Eye PERRL HEENT: PERRL/EOMI, Normal ENT Inspection, Pharynx Normal Neck: Full Range of Motion, Normal Inspection, Non Tender, Supple, Carotid Bruit Respiratory: Chest Non Tender, Lungs Clear, Normal Breath Sounds, No Accessory Muscle Use, No Respiratory Distress Cardiovascular: Regular Rate, Rhythm, No Edema, No Gallop, No JVD, No Murmur, Normal Peripheral Pulses Gastrointestinal: Normal Bowel Sounds, No Organomegaly, No Pulsatile Mass, Non Tender, Soft Back: Normal Inspection, No CVA Tenderness, No Vertebral Tenderness Extremity: Normal Capillary Refill, Normal Inspection, Normal Range of Motion ( except legs due to recent surgery and pain), Non Tender, No Calf Tenderness, No Pedal Edema Neurologic/Psychiatric: Alert, Oriented x3, No Motor/Sensory Deficits, Depressed Affect Skin: Normal Color, Warm/Dry Lymphatic: No Adenopathy Results Results/Procedures Lab Laboratory Tests 09/15/17 13:00 09/16/17 05:30 Assessment/Plan Admission Diagnosis Assessment: Right hip fracture s/p repair POD # 1 DM HTN HLP CAD previous CABG 5-V Colon cancer hx Assessment and Plan Plan: IS Breakfast BM meds Non-narcotic pain meds is preferred Clinical Quality Measures DVT/VTE Risk/Contraindication: Risk Factor Score Per Nursin RFS Level Per Nursing on Admit: 4+=Very High EVIE YEUNG DO Sep 16, 2017 11:17
[2017-09-16] MEDS ORDERED: LACTULOSE SYRUP 10GM/15ML (ENULOSE) 30ML UDC PO PRN (11:30)
[2017-09-16] MEDS: VITAMIN D3 5,000 UNITS (CHOLECALCIFEROL ) CAPSULE PO SCH (11:51)
[2017-09-16] MEDS: LEVOTHYROXINE 100 MCG (LEVOTHROID) TAB PO SCH ×2 (11:52→13:54)
[2017-09-16] MEDS: VITAMIN E 400 INTLU CAP PO SCH (11:52)
[2017-09-16] MEDS: LOSARTAN 100 MG (COZAAR) TABLET PO SCH (11:52)
[2017-09-16] MEDS: CALCIUM CARB + VIT D 600 MG (CALCARB + D) TAB PO SCH (11:52)
[2017-09-16] MEDS: SENNOSIDES 8.6 MG (SENOKOT) TAB PO SCH (11:52)
[2017-09-16] MEDS: meTOproloL SUCCINATE 50 MG (TOPROL XL) TAB PO SCH (11:53)
[2017-09-16 12:00] VITALS: BP 138/65
--- NOTE | 2017-09-16 13:17 | Occupational Therapy Eval ---
OT Evaluation-General/PLF Medical Diagnosis Admission Date Sep 15, 2017 at 13:35 Medical Diagnosis: right hip fracture Onset Date: Sep 15, 2017 Therapy Diagnosis Therapy Diagnosis: impaired self care skills Height/Weight Height (Feet): 5 Height (Inches): 2.00 Weight (Pounds): 136 Weight (Ounces): 0.0 Precautions Precautions/Isolations: Fall Prevention Referral Physician: Smooth Medical History Pertinent Medical History: CABG, CAD, DM, HTN Additional Medical History high cholesterol, GERD, chronic constipation, diverticulosis, DDD, osteoporosis , arthritis, RA, hypothyroidism. Current History Pt fall resulting in right hip fracture. Now s/p surgical intervention. Social History Home: Single Level Current Living Status: Alone Entry Into Home: Stairs With Railing Steps Into Home: 2 ADL-Prior Level of Function ADL PLOF Comments Pt reports being independent with self care and ADLs. Pt states daughters sweep for her, but she does other observer gravity prospecting. Does not use any assistive devices for mobility DME/Equipment: Bedside Commode (over toilet), Grab Bars, Shower Drive Self: No OT Current Status Subjective Pt sitting in chair, agrees to therapy. Pt reports 5/10 pain in right hip. Pt is [facility] Mental Status/Objective Patient Orientation: Person, Place Attachments: Medrano Catheter, IV, Oxygen Current Glasses/Contacts: Yes Hearing Aids: No Dentures/Partials: Yes Hand Dominance: Right Upper Extremity ROM Grossly WFL Upper Extremity Coordination Intact Upper Extremity Sensation Intact per pt report ADL-Treatment ADL-Current Pt participated in UE assessment while seated. Pt performed sit to stand with moderate assistance and cues for hand placement. Pt stood with FWW, cues for posture. Stand to sit with assist for safe descent. Introduced pt to adaptive equipment for LE dressing. Doffed left sock with assist. Education provided regarding use of sock aid. Pt donned sock with minimal assistance using sock aid. Pt sitting in chair with needs met and sons present after session. Functional [place] Measure 0=Not Assessed/NA 4=Minimal Assistance 1=Total Assistance 5=Supervision or Setup 2=Maximal Assistance 6=Modified [place] 3=Moderate Assistance 7=Complete IndependenceIRFPAI Quality Coding Scale 6 Independent with activity with or without an assistive device 5 Patient requires set up or clean up by helper. Patient completes activity by themselves 4 Supervision or touching assist (CGA). [place] provide cues , steadying assist 3 The helper provides less than half the effort to complete the activity 2 The helper provides more than half the effort to complete the activity 1 Dependent. The helper does all the effort to complete an activity 7 Patient refused to complete or attempt activity 9 The patient did not perform the activity before the current illness or injury 88 Not attempted due to Medical conditions or safety concerns Eating (FIM): 5 (by report) Education OT Patient Education: Rehab process Teaching Recipient: Patient Teaching Methods: Discussion Response to Teaching: Verbalize Understanding, Reinforcement Needed OT Short Term Goals Short Term Goals 1=Demonstrate adherence to instructed precautions during ADL tasks. 2=Patient will verbalize/demonstrate understanding of assistive devices/ modifications for ADL. 3=Patient will improve strength/tolerance for activity to enable patient to perform ADL's. OT Correction Goals Correction Goals Time Frame: Sep 30, 2017 Grooming(FIM): 5 Bathing(FIM): 4 Upper Body Dressing(FIM): 5 Lower Body Dressing(FIM): 5 Toileting(FIM): 5 Toilet/Commode Transfer(FIM): 5 Additional Goals: 1-Demonstrate ADL Tasks, 2-Verbalize Understanding, 3- ImproveStrength/[place] 1=Demonstrate adherence to instructed precautions during ADL tasks. 2=Patient will verbalize/demonstrate understanding of assistive devices/ modifications for ADL. 3=Patient will improve strength/tolerance for activity to enable patient to perform ADL's. OT Education/Plan Problem List/Assessment Assessment: Decreased Activ Tolerance, Decreased UE Strength, Dependent Transfers, Impaired Self-Care Skills Pt admitted with right hip fracture. Pt demonstrates decreased mobility, strength, and activity tolerance. Pt to benefit from skilled OT intervention for ADL training, transfers, strengthening, adaptive equipment instruction, and home safety education to improve level of function and allow safe discharge home. Discharge Recommendations Plan/Recommendations: Continue POC Treatment Plan/Plan of Care Treatment,Training & Education: Yes Patient would benefit from OT for education, treatment and training to promote independence in ADL's, mobility, safety and/or upper extremity function for ADL' s. Plan of Care: ADL Retraining, Functional Mobility, UE Funct Exercise/Act Treatment Duration: Sep 30, 2017 Frequency: 5 times per week Estimated Hrs Per Day: .5 hour per day Agreement: Yes Rehab Potential: Good Time/GCodes Start Time: 11:20 Stop Time: 11:46 Total Time Billed (hr/min): 26 Billed Treatment Time 1 visit. EVM(10minutes), ADL(16minutes) SABRINA CRUM OT Sep 16, 2017 13:16
[2017-09-16] MEDS: OMEGA 3 (FISH OIL) 1000 MG CAP PO SCH (13:57)
--- NOTE | 2017-09-16 14:09 | Physical Therapy Daily Note ---
PT Daily Note-Current Subjective Patient agrees to PT. Pain Numeric Pain Scale: 10-Worst Possible Pain Location: Right Location Body Site: Hip Pain Description: Ache, Acute Mental Status Patient Orientation: Normal For Age Attachments: Oxygen, Medrano Catheter, IV Transfers Functional [place] Measure 0=Not Assessed/NA 4=Minimal Assistance 1=Total Assistance 5=Supervision or Setup 2=Maximal Assistance 6=Modified [place] 3=Moderate Assistance 7=Complete IndependenceIRFPAI Quality Coding Scale 6 Independent with activity with or without an assistive device 5 Patient requires set up or clean up by helper. Patient completes activity by themselves 4 Supervision or touching assist (CGA). [place] provide cues , steadying assist 3 The helper provides less than half the effort to complete the activity 2 The helper provides more than half the effort to complete the activity 1 Dependent. The helper does all the effort to complete an activity 7 Patient refused to complete or attempt activity 9 The patient did not perform the activity before the current illness or injury 88 Not attempted due to Medical conditions or safety concerns Transfers (B, C, W/C) (FIM): 2 Scootin Rollin Supine to/from Sit: 2 Sit to/from Stand: 3 Bed to/from Chair: 3 Patient has not taken pain medication on this date. PT educated/encouraged patient to take pain medication to receive full benefit from therapy. Weight Bearing Right Lower Extremity: Right Weight Bearing/Tolerated Left Lower Extremity: Left Full Weight Bearing Gait Training Gait (FIM): 1 Distance (FIM): 1=up to 49 ft Distance: 8' Gait Level of Assist: 2 Gait Persons Needed: 1 Gait Assistive Device: FWW difficulty weight shifting to right due to pain right LE. Exercises Supine Ex: Ankle pumps, Quad Set, Heel Slides Supine Reps: 10 (AAROM HS right LE) Seated Therapy Exercises: Ankle pumps, Long arc quads Seated Reps: 15 (2 sets) Assessment PT encouraged patient to take pain medication to alleviate right hip pain to receive full benefit from therapy. Patient agrees and RN notified and issuing. PT Nursing Home Goals Nursing Home Goals PT It Program Manager Goals Time Frame: Sep 30, 2017 Transfers (B,C,W/C) (FIM): 6 Gait (FIM): 6 Gait distance (FIM): 3=150 ft Distance: 150' Gait Level of Assist: 6 Gait Assistive Device: FWW Stairs (FIM): 5 # of Steps: 4 Stairs Level Of Assist: 5 PT Plan Treatment/Plan Treatment Plan: Continue Plan of Care Treatment Plan: Bed Mobility, Education, Functional Activity [place], Functional Strength, Gait, Safety, Therapeutic Exercise, Transfers Treatment Duration: Sep 30, 2017 Frequency: 11 times per week Estimated Hrs Per Day: 1 hour per day Patient and/or Family Agrees t: Yes Safety Risks/Education Patient Education: Safety Issues Teaching Recipient: Patient Teaching Methods: Discussion Response to Teaching: Verbalize Understanding, Reinforcement Needed Discharge Recommendations Therapy D/C Recommendations: Acute Rehab Time/GCodes Time In: 1315 Time Out: 1340 Total Billed Treatment Time: 25 Total Billed Treatment 1 visit FA 15 min EX 10 min BASIM RICHARDS PT Sep 16, 2017 14:09
--- NOTE | 2017-09-16 14:24 | Anesthesia-General Post-Op ---
General Patient Condition Mental Status/LOC: Same as Preop Cardiovascular: Satisfactory Nausea/Vomiting: Absent Respiratory: Satisfactory Pain: Controlled Complications: Absent Post Op Complications Complications None Follow Up Care/Instructions Patient Instructions None needed. Anesthesia/Patient Condition Patient Condition Patient is doing well, no complaints, stable vital signs, no apparent adverse anesthesia problems. No complications reported per nursing. D/C home per [facility] Criteria: Yes HARIKA CANALES CRNA Sep 16, 2017 14:24
[2017-09-16 16:01] VITALS: BP 168/73
[2017-09-16] MEDS: HYDROcodone/APAP 5 MG/325 MG (LORTAB) TAB PO PRN ×2 (17:10→22:27)
--- NOTE | 2017-09-16 20:16 | OPERATIVE REPORT ---
DATE OF SERVICE: 09/15/2017 PREOPERATIVE DIAGNOSIS: Displaced, unstable intertrochanteric fracture of right proximal femur. POSTOPERATIVE DIAGNOSIS: Displaced, unstable intertrochanteric fracture of right proximal femur. PROCEDURE PERFORMED: Closed manipulation followed by placement of a cephalomedullary nail, right femur. IMPLANTS USED: The Synthes short TFN size 10 mm in diameter with a 130 degree proximal lag screw angle and a 105 mm cephalomedullary lag screw. ATTENDING SURGEON: Dr. Gabe Hernandez. RN PROCEDURE: Sathya Wilson PA-C; Mr. Wilson's assistance was required for this case secondary to the complexity of the case, to hold the necessary and critical retractors, and to increase the efficiency and efficacy of the case. ANESTHESIA: General endotracheal. ESTIMATED BLOOD LOSS: 50 mL. COMPLICATIONS: None. SPECIMENS: None. DRAINS: None. BRIEF HISTORY/INDICATIONS: The patient is a very pleasant 89-year-old female, who on 09/15/2017 sustained a mechanical ground level fall landing onto her right hip. She subsequently had severe right hip pain and an inability to bear weight or ambulate on her right lower extremity. As such, she is transferred to the [facility] Emergency Department for evaluation and treatment. Upon presentation, plain radiographs of her pelvis and right femur demonstrated a displaced, unstable intertrochanteric fracture of the right proximal femur. The patient was admitted to the internal medicine service and orthopedic service was consulted for definitive management of her injury. The patient denied head trauma or loss of consciousness during her fall, she denied having sustained other injuries to her extremities, she had no other musculoskeletal complaints upon presentation. On exam, her right lower extremity was flexed and externally rotated the hip, her skin was intact, there were no open wounds, all of her compartments were soft and compressible, motor and sensory function was grossly intact and the right foot was well perfused. I did discuss the patient's condition and injury in detail with her and many family members who were at bedside. I also discussed the necessity for operative fixation, which included the risks, benefits, potential complications and expected outcomes as well as further details of the procedure. The risks that were discussed included significant bleeding, infection, hardware failure including a cutout of the lag screw, additional fractures are below the nail, damage to surrounding neurovascular structures, malunion, nonunion and potential need for secondary surgical procedures. After having this detailed discussion, the patient gave informed written consent to proceed as planned after all of her questions were answered to her satisfaction. PROCEDURE NOTE: After correctly identifying the patient in the preoperative holding area and after her right lower extremity was appropriately marked, she was transferred to the operating room. Once in the operating room, she had successful induction of general endotracheal anesthesia then she was transferred to the radiolucent fracture table and placed in supine position. The operative right leg was secured into the well-padded fracture boot and then reinforced with Coban for extra stability of the foot. The nonoperative left lower extremity was then secured to the contralateral of the fracture table and was well padded, displacing the legs in a scissored position. The traction in a closed manipulation procedure was then applied to the right lower extremity and the fracture under fluoroscopic guidance. Once acceptable reduction of the fracture in both the AP and lateral planes was confirmed, the operative site was then prepped and draped in routine sterile fashion. Prior to making incisions, we completed an operating room timeout with all parties involved in the case and agreement and verified appropriate infusion of prophylactic antibiotics. Using a 10 blade scalpel, I made an incision approximately 3 fingerbreadths proximal to the tip of the greater trochanter incising through the skin and subcutaneous tissue. Blunt Portillo scissor was then used to dissect the fascia of the gluteus eliel giving access to the tip of the greater trochanter. Under fluoroscopic guidance, the guide pin from the Synthes TFN system was then introduced into the proximal femur to the appropriate depth and position under fluoroscopic guidance. After this was accomplished, the opening reamer was used to open the proximal femur over the guide pin to make the spray pilot hole for the nail. The short TFN nail was then introduced into the proximal femur and then placed into the appropriate position with light taps of the mallet. The guide pin for the cephalomedullary lag screw was then placed through the external aiming arm under fluoroscopic guidance into the appropriate position into the femoral neck and head. Opening and step reamers were then used to prepare the path for the lag screw. The lag screw was then introduced over the guide pin into the appropriate position into the femoral head and neck to give us a good tipped apex distance. The nail was then locked proximally. The nail was then locked distally with a distal locking bolt using the external aiming arm. This completed our fixation. AP and lateral fluoroscopic images verified acceptable reduction and alignment of the fracture as well as appropriate position of all the hardware. The wounds were then irrigated with copious amounts of sterile saline followed by a standard closure after meticulous hemostasis was achieved. Closure was completed with 0 Vicryl for the deep fascia, 2-0 Vicryl for the subcutaneous tissue and jaclyn for the skin. The patient had sterile dressings applied followed by being awakened and extubated in the operating room without complications. She was transferred to the PACU in stable condition. She tolerated the procedure well without complications. All counts were correct at the end of the case. Job ID: [id number] DocumentID: [id number] Dictated Date: 09/16/2017 12:04:04 Paid Search Analyst Date: 09/16/2017 20:15:37 Dictated By: GABE HERNANDEZ
[2017-09-16 20:32] VITALS: BP 174/74
[2017-09-16] MEDS: amLODIPine 10 MG (NORVASC) TAB PO SCH (20:34)
[2017-09-16] MEDS: glipiZIDE XL 5 MG (GLUCOTROL XL) TAB PO SCH (20:35)
[2017-09-16] MEDS: ASPIRIN E.C. 81 MG (ECOTRIN) TAB PO SCH (20:35)
[2017-09-16] MEDS: SIMvastatin 40 MG (ZOCOR) TAB PO SCH (20:35)
[2017-09-17] VITALS: BP 131/62
[2017-09-17] MEDS: NS IV 1000 ML 1,000 ML IV SCH ×3 (04:09→11:53)
[2017-09-17] MEDS: HYDROcodone/APAP 5 MG/325 MG (LORTAB) TAB PO PRN ×2 (04:35→14:44)
[2017-09-17 05:22] LABS: BASOPHILS % (AUTO) 1 % (0-10); EOSINOPHILS % (AUTO) 5 % (0-10); LYMPHOCYTES % (AUTO) 13 % (12-44); MEAN CORPUSCULAR HEMOGLOBIN 31 PG (25-34); MEAN CORPUSCULAR HGB CONC 33 G/DL (32-36); MEAN CORPUSCULAR VOLUME 95 FL (80-99); MEAN PLATELET VOLUME 10.7 FL (7.4-10.4); MONOCYTES % (AUTO) 17 % (0-12); NEUTROPHILS % (AUTO) 64 % (42-75); PLATELET COUNT 132 10^3/uL (130-400); RED CELL DISTRIBUTION WIDTH 13.8 % (10.0-14.5); WHITE BLOOD COUNT 7.7 10^3/uL (4.3-11.0)
[2017-09-17 05:23] LABS: BASOPHILS # (AUTO) 0.1 10^3/uL (0.0-0.1); EOSINOPHILS # (AUTO) 0.4 10^3/uL (0.0-0.3); MONOCYTES # (AUTO) 1.3 X 10^3 (0.0-1.0)
[2017-09-17 05:43] LABS: ALANINE AMINOTRANSFERASE 9 U/L (0-55); ALBUMIN 2.9 GM/DL (3.2-4.5); ANION GAP 5 MMOL/L (5-14); ASPARTATE AMINO TRANSFERASE 18 U/L (5-34); BILIRUBIN,TOTAL 0.3 MG/DL (0.1-1.0); BLOOD UREA NITROGEN 15 MG/DL (7-18); BUN/CREATININE RATIO 22; CALCIUM 8.5 MG/DL (8.5-10.1); CARBON DIOXIDE 24 MMOL/L (21-32); CHLORIDE 111 MMOL/L (98-107); CREATININE SERUM 0.69 MG/DL (0.60-1.30); GFR ESTIMATED > 60; GLUCOSE 191 MG/DL (70-105); SODIUM 140 MMOL/L (135-145); TOTAL PROTEIN 4.9 GM/DL (6.4-8.2)
[2017-09-17] MEDS: LEVOTHYROXINE 100 MCG (LEVOTHROID) TAB PO SCH (06:22)
[2017-09-17] MEDS: CALCIUM CARB + VIT D 600 MG (CALCARB + D) TAB PO SCH (06:22)
[2017-09-17] MEDS: VITAMIN D3 5,000 UNITS (CHOLECALCIFEROL ) CAPSULE PO SCH (06:22)
[2017-09-17] MEDS: OMEGA 3 (FISH OIL) 1000 MG CAP PO SCH (06:22)
[2017-09-17] MEDS: VITAMIN E 400 INTLU CAP PO SCH (06:30)
[2017-09-17 08:00] VITALS: BP 136/61
[2017-09-17] MEDS: LETROZOLE 2.5 MG (FEMARA) TAB PO SCH (08:36)
[2017-09-17] MEDS: LINAGLIPTIN (TRADJENTA) 5 MG TABLET PO SCH (08:36)
[2017-09-17] MEDS: SENNOSIDES 8.6 MG (SENOKOT) TAB PO SCH (08:36)
[2017-09-17] MEDS: meTOproloL SUCCINATE 50 MG (TOPROL XL) TAB PO SCH (08:36)
[2017-09-17] MEDS: LOSARTAN 100 MG (COZAAR) TABLET PO SCH (08:36)
[2017-09-17] MEDS ORDERED: NON-FORMULARY MEDICATION 1 EA EA (Leflunomide 20 MG) PO SCH (09:00)
[2017-09-17] MEDS ORDERED: LACTOSE REDUCED FOOD PO SCH (09:00)
--- NOTE | 2017-09-17 09:46 | Physical Therapy Daily Note ---
PT Daily Note-Current Subjective Pt. says she birhted 10 babies and never had pain like this. States she has no pain until she begins to move then 06/12. Agrees to Rx and knows she has to get up and work to get home Pain Numeric Pain Scale: 9 Location: Right Location Body Site: Hip Pain Description: Stabbing Mental Status Patient Orientation: Normal For Age Attachments: Oxygen, Medrano Catheter Transfers Functional [place] Measure 0=Not Assessed/NA 4=Minimal Assistance 1=Total Assistance 5=Supervision or Setup 2=Maximal Assistance 6=Modified [place] 3=Moderate Assistance 7=Complete IndependenceIRFPAI Quality Coding Scale 6 Independent with activity with or without an assistive device 5 Patient requires set up or clean up by helper. Patient completes activity by themselves 4 Supervision or touching assist (CGA). [place] provide cues , steadying assist 3 The helper provides less than half the effort to complete the activity 2 The helper provides more than half the effort to complete the activity 1 Dependent. The helper does all the effort to complete an activity 7 Patient refused to complete or attempt activity 9 The patient did not perform the activity before the current illness or injury 88 Not attempted due to Medical conditions or safety concerns Transfers (B, C, W/C) (FIM): 2 Scootin Rollin Supine to/from Sit: 2 Sit to/from Stand: 2 Bed to/from Chair: 2 Weight Bearing Right Lower Extremity: Right Weight Bearing/Tolerated Left Lower Extremity: Left Full Weight Bearing Gait Training Gait (FIM): 1 Distance (FIM): 1=up to 49 ft (6ftx1) Gait Level of Assist: 2 Gait Persons Needed: 2 Gait Assistive Device: FWW pt. took 3 very small steps with instruction for weight shift etc then layed forearms on FWW and began to wane in strength and effort, required recliner to be brought up as close as possible. nails and table at hand, comforted in chair with pillow support etc Exercises Supine Ex: Ankle pumps (assisted), Rolling (ssisted), Glut sets, Heel Slides ( assisted), Scooting (assosted), Hip abd/add (assisted) Supine Reps: 8 Seated Therapy Exercises: Ankle pumps, Long arc quads Seated Reps: 10 Assessment Current Status: Good Progress PT Furniture Dipper Goals Furniture Dipper Goals PT Mcc Goals Time Frame: Sep 30, 2017 Transfers (B,C,W/C) (FIM): 6 Gait (FIM): 6 Gait distance (FIM): 3=150 ft Distance: 150' Gait Level of Assist: 6 Gait Assistive Device: FWW Stairs (FIM): 5 # of Steps: 4 Stairs Level Of Assist: 5 PT Plan Treatment/Plan Treatment Plan: Continue Plan of Care Treatment Plan: Bed Mobility, Education, Functional Activity [place], Functional Strength, Gait, Safety, Therapeutic Exercise, Transfers Treatment Duration: Sep 30, 2017 Frequency: 11 times per week Estimated Hrs Per Day: 1 hour per day Patient and/or Family Agrees t: Yes Safety Risks/Education Patient Education: Gait Training, Transfer Techniques Teaching Recipient: Patient Teaching Methods: Demonstration, Discussion Response to Teaching: Verbalize Understanding, Return Demonstration, Reinforcement Needed Time/GCodes Time In: 915 Time Out: 940 Total Billed Treatment Time: 25 Total Billed Treatment 1,FA15m,EX10m G Codes Necessary: MARY Case DRY KILN OPERATOR HELPER Sep 17, 2017 09:46
--- NOTE | 2017-09-17 11:19 | Cardiology Progress Note ---
Cardiology SOAP Progress Note Subjective: no cardiac complaints. Objective: I&O/Vital Signs Vital Sign - Last 12Hours 09/17/17 09/17/17 00:00 05:00 Temp 99.6 96.2 Pulse 57 Resp 20 B/P (MAP) 131/62 (85) Pulse Ox 97 O2 Delivery Nasal Cannula O2 Flow Rate 2.00 Intake and Output 09/17/17 00:00 Intake Total 1910 ml Output Total 825 ml Balance 1085 ml Weight (Pounds): 136 Weight (Ounces): 0.0 Weight (Calculated Kilograms): 61.477883 Constitutional: No appears stated age, No AAO x 3, No apparent distress, No PERRL, No well-developed, No well-nourished, No other Respiratory: No accessory muscle use, No respiratory distress, No chest tender , No chest expansion is symmetric, No chest is bilaterally symmetric, No lungs clear to percussion, No lungs clear to auscultation, No crackles, No rhonchi, No rales, No stridor, No wheezing, No pleural rub, No other Cardiovascular: No regular rate-rhythm, No irregularly irregular, No extra beats, No parasternal heave is noted, No JVD, No edema, No bradycardia, No tachycardia, No point of maximal impulse, No cardiac thrills are palpable, No S1 and S2, No gallop/S3, No gallop/S4, No diastolic murmur, No systolic murmur, No friction rub, No click, No other Gastrointestional: No tender, No soft, No round, No distended, No pulsatile mass, No organomegaly, No guarding, No rebound, No tenderness, No hernia, No mass, No audible bowel sounds, No abnormal bowel sounds, No abdominal bruits, No spleenomegaly, No other Extremities: No normal range of motion, No non-tender, No normal inspection, No pedal edema, No calf tenderness, No normal capillary refill, No pelvis stable , No calf tenderness, No inflammation, No pedal edema, No slow capillary refill , No swelling, No other, No abrasion, No clubbing, No cyanosis, No ecchymosis, No laceration, No no lower extremity edema bilateral, No significant edema, No tenderness, No wound Neurologic/Psychiatric: No plumbing and heating contractor II-XII nml as tested, No no motor/sensory deficits, No alert, No normal mood/affect, No oriented x 3, No abnormal cerebellar tests, No abnormal plumbing and heating contractor II-XII, No abnormal gait, No aphasia, No EOM palsy, No facial droop, No motor weakness, No sensory deficit, No depressed affect, No disoriented x 3, No other, No grossly intact, No power is 5/5 both on sides Skin: No normal color, No warm/dry, No cyanosis, No cool, No diaphoresis, No damp, No ecchymosis, No jaundice, No mottled, No pallor, No rash, No tattoos/ piercings, No ulcerations, No rash on exposed areas, No ulcerations on exposed areas, No other Results/Procedures: Labs Laboratory Tests 09/17/17 05:09: White Blood Count 7.7, Red Blood Count 2.80L, Hemoglobin 8.7L, Hematocrit 27L, Mean Corpuscular Volume 95, Mean Corpuscular Hemoglobin 31, Mean Corpuscular Hemoglobin Concent 33, Red Cell Distribution Width 13.8, Platelet Count 132, Mean Platelet Volume 10.7H, Neutrophils (%) (Auto) 64, Lymphocytes (%) (Auto) 13 , Monocytes (%) (Auto) 17H, Eosinophils (%) (Auto) 5, Basophils (%) (Auto) 1, Neutrophils # (Auto) 5.0, Lymphocytes # (Auto) 1.0, Monocytes # (Auto) 1.3H, Eosinophils # (Auto) 0.4H, Basophils # (Auto) 0.1, Sodium Level 140, Potassium Level 4.0, Chloride Level 111H, Carbon Dioxide Level 24, Anion Gap 5, Blood Urea Nitrogen 15, Creatinine 0.69, Estimat Glomerular Filtration Rate > 60, BUN/ Creatinine Ratio 22, Glucose Level 191H, Calcium Level 8.5, Total Bilirubin 0.3 , Aspartate Amino Transf (AST/SGOT) 18, Alanine Aminotransferase (ALT/SGPT) 9, Alkaline Phosphatase 33L, Total Protein 4.9L, Albumin 2.9L Microbiology 09/15/17 MRSA Screen - Final, Complete MRSA not isolated A/P: Assessment/Dx: Right hip fracture, CABG DM HTN Plan: Status post-hip surgery POD 2. Doing well. No cardiac complaints. CABG-patient was restarted on aspirin, beta jess, angiotensin receptor jess. Stable. DM - defer to primary team. HTN - stable. Thank you for your consultation. Please call me if you have any questions. Deshawn Hood MD, FACP, FACC, FSCAI, FHRS, CCDS Interventional Cardiology Cardiac Electrophysiology Vascular Medicine and Endovascular Interventions Augustin HOOD MD Sep 17, 2017 11:19 am
--- NOTE | 2017-09-17 12:15 | Progress Note-Hospitalist ---
Subjective HPI/CC On Admission Date Seen by Provider: Sep 17, 2017 Time Seen by Provider: 11:00 CC: Right hip fracture HPI: This is a 89yoWF pt of Dr. Verduzco's with hx of colon ca, DM, HTN, and CAD that presented to hospital ER after fall at home resulting in a hip fracture. She had an uncomplicated repair by Dr. Noel Rebollar. 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 This was discussed with the family as they wished to not have her on a regular regimen of narcotics. Pt had peanut brittle and jalapeno jelly on her tray. Pt states the peanut brittle was for me Pt does not remember Dr. Noel Rebollar but confirms PCP as Dr. Verduzco Physical exam stable. Lungs sound perfect Pt states that in 1999, she had a quintuple bypass surgery Pt was encouraged to use IS Pt states she constipates easily but has been using BM meds regularly. Breakfast was requested and I informed that pt that her diet is being changed so she can have breakfast Family asked how mobile she can be and urged the pt to ease into everything Scribed by Nessa Rudd under direct supervision of Dr. Evie Browning. Subjective/Events-last exam patient is postoperative day number 2 from hip surgery. sHe is sitting up in her chair and denies any complaints.she says her hip aches but denies chest pain or shortness of breath. Review of Systems Musculoskeletal: leg pain Neurological: Weakness Objective Exam Vital Signs Vital Sign - Last 12Hours 09/15/17 13:20 Temp 97.1 Pulse 61 Resp 12 B/P (MAP) 219/89 (132) Pulse Ox 94 O2 Delivery Room Air O2 Flow Rate 2.00 Capillary Refill : Less Than 3 SecondsLess Than 3 Seconds General Appearance: No Apparent Distress, WD/WN, Other (hard of hearing) Neck: Supple Respiratory: Chest Non Tender, Lungs Clear, Normal Breath Sounds, No Accessory Muscle Use, No Respiratory Distress Cardiovascular: Regular Rate, Rhythm, No Gallop, No Murmur Gastrointestinal: Normal Bowel Sounds, Soft Extremity: No Calf Tenderness Neurologic/Psychiatric: Alert, Oriented x3, Normal Mood/Affect Results/Procedures Lab Laboratory Tests 09/17/17 05:09 Assessment/Plan Assessment and Plan Assess & Plan/Chief Complaint Right hip fracture s/p repair POD # 2 DM-on Accu-Cheks HTN HLP CAD previous CABG 5-V Colon cancer hx anemia secondary to acute blood loss from hip surgery. evaluate for rehabilitation in the morning STELLA ROMEO MD Sep 17, 2017 12:15 pm
--- NOTE | 2017-09-17 12:50 | Progress Note (SOAP) ---
Subjective Date Seen by Provider: Sep 17, 2017 Time Seen by Provider: 12:46 Subjective/Events-last exam Pt SHELLY, alert/oriented, OOB in chair, pain controlled, no adverse events to report, doing well, no complaints. Objective Exam Vital Signs Date Time Temp Pulse Resp B/P (MAP) Pulse Ox O2 Delivery O2 Flow Rate FiO2 09/17/17 08:00 97.7 58 20 136/61 (86) 94 Nasal Cannula 2.00 09/17/17 05:00 96.2 09/17/17 00:00 99.6 57 20 131/62 (85) 97 Nasal Cannula 2.00 09/16/17 20:32 98.7 70 18 174/74 (107) 94 Nasal Cannula 2.00 09/16/17 20:00 Nasal Cannula 3.00 09/16/17 16:01 98.7 61 18 168/73 (104) 96 Nasal Cannula 2.00 I & O 09/17/17 07:00 Intake Total 2310 ml Output Total 1425 ml Balance 885 ml Capillary Refill : Less Than 3 SecondsLess Than 3 Seconds General Appearance: No Apparent Distress Respiratory: No Accessory Muscle Use, No Respiratory Distress Cardiovascular: Regular Rate, Rhythm Peripheral Pulses: 2+ Dorsalis Pedis (R), 2+ Left Dors-Pedis (L) Gastrointestinal: non tender, soft Extremity: Other (RLE: expectant post-op edema thigh, all compartments soft, dressings c/d/i, motor/senation grossly intact, foot well perfused.) Neurologic/Psychiatric: Alert, Oriented x3, No Motor/Sensory Deficits Results Lab Laboratory Tests 09/17/17 05:09: White Blood Count 7.7, Red Blood Count 2.80L, Hemoglobin 8.7L, Hematocrit 27L, Mean Corpuscular Volume 95, Mean Corpuscular Hemoglobin 31, Mean Corpuscular Hemoglobin Concent 33, Red Cell Distribution Width 13.8, Platelet Count 132, Mean Platelet Volume 10.7H, Neutrophils (%) (Auto) 64, Lymphocytes (%) (Auto) 13 , Monocytes (%) (Auto) 17H, Eosinophils (%) (Auto) 5, Basophils (%) (Auto) 1, Neutrophils # (Auto) 5.0, Lymphocytes # (Auto) 1.0, Monocytes # (Auto) 1.3H, Eosinophils # (Auto) 0.4H, Basophils # (Auto) 0.1, Sodium Level 140, Potassium Level 4.0, Chloride Level 111H, Carbon Dioxide Level 24, Anion Gap 5, Blood Urea Nitrogen 15, Creatinine 0.69, Estimat Glomerular Filtration Rate > 60, BUN/ Creatinine Ratio 22, Glucose Level 191H, Calcium Level 8.5, Total Bilirubin 0.3 , Aspartate Amino Transf (AST/SGOT) 18, Alanine Aminotransferase (ALT/SGPT) 9, Alkaline Phosphatase 33L, Total Protein 4.9L, Albumin 2.9L Microbiology 09/15/17 MRSA Screen - Final, Complete MRSA not isolated Assessment/Plan Assessment/Plan Assess & Plan/Chief Complaint 89 y/o female s/p IMN Right femur for unstable intertrochanteric fracture, POD # 2 Orthopedically stable VSSAF Labs: Hb down to 8.7 today secondary to acute post-op blood loss anemia, pt currently asymptomatic, vitals stable, will monitor Mobilize in PT/OT daily, WBAT RLE Pain control: no narcotics, no NSAIDs OK to restart plavix, will not add additional anticoagulant secondary to bleeding risk SCDs D/C gerald D/C planning: case management for placement; anticipate rehab/SNF in next 1-2 days Pt can f/u outpatient at [facility] [place] in 2 weeks. Clinical Quality Measures DVT/VTE Risk/Contraindication: Risk Factor Score Per Nursin RFS Level Per Nursing on Admit: 4+=Very High GABE HERNANDEZ DO Sep 17, 2017 12:50
--- NOTE | 2017-09-17 12:55 | Discharge Inst-Surgical ---
Discharge Inst-Surgical Depart Medication/Instructions Final Diagnosis: Intertrochanteric fracture Right proximal femur Consults/Follow Up Goal/Follow Up Appt.: Follow-up with Dr. Rebollar in 2 weeks at [facility]; please call the office to confirm your appt. Patient Instructions: Keep dressings/incisions clean/dry; do not soak incisions/dressings; you may remove your dressings in 3 days and shower, no baths or soaking tubs; you may bear weight as tolerated on your Right leg, use walker/assistive device for ambulation. Activity Activity as Tolerated: Yes Walking Assistive Device: Walker Activity Instructions: Avoid Stress to Incision Driving Instructions: No Driving/Refer to Incentive Spirometry: Every 2 Hours While Awake Diet Discharge Diet: No Restrictions Skin/Wound Care Infection Signs and Symptoms: Increased Redness, Foul Odor of Wound, Increased Drainage, Increased Swelling, Temperature Above 101 F Bathing Instructions: Shower Operative Area Clean and Dry: Keep Incision Clean/Dry Stitches/Marsha/Dermabond Dis: Care of GABE Bhat DO Sep 17, 2017 12:55
[2017-09-17 16:50] VITALS: BP 144/63
[2017-09-17 20:30] VITALS: BP 147/72
[2017-09-17] MEDS: glipiZIDE XL 5 MG (GLUCOTROL XL) TAB PO SCH (20:44)
[2017-09-17] MEDS: SIMvastatin 40 MG (ZOCOR) TAB PO SCH (20:45)
[2017-09-17] MEDS: amLODIPine 10 MG (NORVASC) TAB PO SCH (20:45)
[2017-09-17] MEDS: ASPIRIN E.C. 81 MG (ECOTRIN) TAB PO SCH (20:45)
[2017-09-17 23:55] VITALS: BP 174/74
[2017-09-18] MEDS: HYDROcodone/APAP 5 MG/325 MG (LORTAB) TAB PO PRN ×2 (00:01→04:45)
[2017-09-18 01:09] VITALS: BP 157/65
[2017-09-18] MEDS: VITAMIN E 400 INTLU CAP PO SCH (06:01)
[2017-09-18] MEDS: CALCIUM CARB + VIT D 600 MG (CALCARB + D) TAB PO SCH (06:01)
[2017-09-18] MEDS: VITAMIN D3 5,000 UNITS (CHOLECALCIFEROL ) CAPSULE PO SCH (06:01)
[2017-09-18] MEDS: OMEGA 3 (FISH OIL) 1000 MG CAP PO SCH (06:01)
[2017-09-18] MEDS: LEVOTHYROXINE 100 MCG (LEVOTHROID) TAB PO SCH (06:01)
[2017-09-18 08:00] VITALS: BP 137/63
[2017-09-18] MEDS: LINAGLIPTIN (TRADJENTA) 5 MG TABLET PO SCH (08:35)
[2017-09-18] MEDS: meTOproloL SUCCINATE 50 MG (TOPROL XL) TAB PO SCH (08:35)
[2017-09-18] MEDS: SENNOSIDES 8.6 MG (SENOKOT) TAB PO SCH (08:35)
[2017-09-18] MEDS: LOSARTAN 100 MG (COZAAR) TABLET PO SCH (08:35)
[2017-09-18] MEDS: IRON SUCROSE INJECTION 200 MG in NS (IVPB) 100 ML IV SCH (08:35)
--- NOTE | 2017-09-18 08:42 | Physical Therapy Daily Note ---
PT Daily Note-Current Subjective States that she is doing okay unless she moves the leg. Pain Numeric Pain Scale: 0-No Pain Transfers Functional [place] Measure 0=Not Assessed/NA 4=Minimal Assistance 1=Total Assistance 5=Supervision or Setup 2=Maximal Assistance 6=Modified [place] 3=Moderate Assistance 7=Complete IndependenceIRFPAI Quality Coding Scale 6 Independent with activity with or without an assistive device 5 Patient requires set up or clean up by helper. Patient completes activity by themselves 4 Supervision or touching assist (CGA). [place] provide cues , steadying assist 3 The helper provides less than half the effort to complete the activity 2 The helper provides more than half the effort to complete the activity 1 Dependent. The helper does all the effort to complete an activity 7 Patient refused to complete or attempt activity 9 The patient did not perform the activity before the current illness or injury 88 Not attempted due to Medical conditions or safety concerns Sit to/from Stand: 5 Weight Bearing Right Lower Extremity: Right Weight Bearing/Tolerated Left Lower Extremity: Left Full Weight Bearing Gait Training Gait (FIM): 1 Distance (FIM): 1=up to 49 ft Distance: 6' Gait Level of Assist: 4 Gait Persons Needed: 1 Gait Assistive Device: FWW Exercises Seated Therapy Exercises: LE Protocol Seated Reps: 15 Assessment Current Status: Good Progress Patient continues to have increased pain with weightbearing. PT Manager Distribution Goals Penitentiary Goals PT Penitentiary Goals Time Frame: Sep 30, 2017 Transfers (B,C,W/C) (FIM): 6 Gait (FIM): 6 Gait distance (FIM): 3=150 ft Distance: 150' Gait Level of Assist: 6 Gait Assistive Device: FWW Stairs (FIM): 5 # of Steps: 4 Stairs Level Of Assist: 5 PT Plan Treatment/Plan Treatment Plan: Continue Plan of Care Treatment Plan: Bed Mobility, Education, Functional Activity [place], Functional Strength, Gait, Safety, Therapeutic Exercise, Transfers Treatment Duration: Sep 30, 2017 Frequency: 11 times per week Estimated Hrs Per Day: 1 hour per day Patient and/or Family Agrees t: Yes Time/GCodes Time In: 815 Time Out: 838 Total Billed Treatment Time: 23 Total Billed Treatment 1, GT, EX G Codes Necessary: CONNIE Fuller PT Sep 18, 2017 08:42
[2017-09-18] MEDS: LETROZOLE 2.5 MG (FEMARA) TAB PO SCH (09:57)
--- NOTE | 2017-09-18 10:08 | Progress Note-Hospitalist ---
Subjective HPI/CC On Admission Date Seen by Provider: Sep 18, 2017 Time Seen by Provider: 10:00 CC: Right hip fracture HPI: This is a 89yoWF pt of Dr. Verduzco's with hx of colon ca, DM, HTN, and CAD that presented to hospital ER after fall at home resulting in a hip fracture. She had an uncomplicated repair by Dr. Noel Rebollar. 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 This was discussed with the family as they wished to not have her on a regular regimen of narcotics. Pt had peanut brittle and jalapeno jelly on her tray. Pt states the peanut brittle was for me Pt does not remember Dr. Noel Rebollar but confirms PCP as Dr. Verduzco Physical exam stable. Lungs sound perfect Pt states that in 1999, she had a quintuple bypass surgery Pt was encouraged to use IS Pt states she constipates easily but has been using BM meds regularly. Breakfast was requested and I informed that pt that her diet is being changed so she can have breakfast Family asked how mobile she can be and urged the pt to ease into everything Scribed by Nessa Rudd under direct supervision of Dr. Evie Browning. Subjective/Events-last exam patient complains primarily of constipation. She does have some hip pain but the pain medication is helpful but she feels like she doesn't want to ask for it. Review of Systems Gastrointestinal: Constipation Musculoskeletal: leg pain Objective Exam Vital Signs Vital Sign - Last 12Hours 09/15/17 13:20 Temp 97.1 Pulse 61 Resp 12 B/P (MAP) 219/89 (132) Pulse Ox 94 O2 Delivery Room Air O2 Flow Rate 2.00 Capillary Refill : Less Than 3 SecondsLess Than 3 Seconds General Appearance: No Apparent Distress, WD/WN HEENT: Normal ENT Inspection Respiratory: Lungs Clear, Normal Breath Sounds, No Accessory Muscle Use, No Respiratory Distress Cardiovascular: Regular Rate, Rhythm, No Gallop, Systolic Murmur Extremity: No Pedal Edema Neurologic/Psychiatric: Alert, Oriented x3, No Motor/Sensory Deficits, Normal Mood/Affect Assessment/Plan Assessment and Plan Assess & Plan/Chief Complaint Right hip fracture s/p repair POD # 3-Will transfer to reach inpatient rehabilitation today DM-on Accu-Cheks HTN HLP CAD previous CABG 5-V Colon cancer hx anemia secondary to acute blood loss from hip surgery. constipation-will start her on stool softener STELLA ROMEO MD Sep 18, 2017 10:08 am
[2017-09-18] MEDS ORDERED: MILK OF MAGNESIA 400 MG/5 ML 30 ML UDC PO ONE (10:15)
[2017-09-18] MEDS ORDERED: meTOproloL SUCCINATE 50 MG (TOPROL XL) TAB PO ONE (11:35)
[2017-09-18] MEDS ORDERED: SENNA W/DOCUSATE (SENOKOT S) TABLET PO SCH (21:00)
== END 2017-09-18 10:49 | DRG 481 ==
LOC: EDUNIT# 12:50 → ER 12:51 → 4TH 13:35
PROVIDERS: ADMIT Internal Medicine; ATTEND Internal Medicine
PROC: 0QS606Z Reposition Right Upper Femur with Intramedullary Internal Fixation Device, Open Approach (ICD-10-PCS; principal; 2017-09-15 18:31)
DX: M84.451A Pathological fracture, right femur, initial encounter for fracture (principal); D62 Acute posthemorrhagic anemia; M81.0 Age-related osteoporosis without current pathological fracture; I25.10 Atherosclerotic heart disease of native coronary artery without angina pectoris; I10 Essential (primary) hypertension; E78.00 Pure hypercholesterolemia, unspecified; E78.5 Hyperlipidemia, unspecified; E11.9 Type 2 diabetes mellitus without complications; E03.9 Hypothyroidism, unspecified; K21.9 Gastro-esophageal reflux disease without esophagitis; K59.09 Other constipation; M19.91 Primary osteoarthritis, unspecified site; M06.9 Rheumatoid arthritis, unspecified; M54.9 Dorsalgia, unspecified; G47.9 Sleep disorder, unspecified; W07.XXXA Fall from chair, initial encounter; H91.93 Unspecified hearing loss, bilateral; Y92.009 Unspecified place in unspecified non-institutional (private) residence as the place of occurrence of the external cause; Z95.1 Presence of aortocoronary bypass graft; Z85.3 Personal history of malignant neoplasm of breast; Z79.84 Long term (current) use of oral hypoglycemic drugs; Z97.4 Presence of external hearing-aid; Z85.038 Personal history of other malignant neoplasm of large intestine; Z88.1 Allergy status to other antibiotic agents; Z88.8 Allergy status to other drugs, medicaments and biological substances
CPT/HCPCS: 36415; 51702; 71010; 80053; 81000; 83540; 85025; 85027; 85610; 85730; 87081; 94664; 96374